=== PATIENT | female | born 1980 | race Caucasian/White ===

== ENCOUNTER 2019-12-22 14:47 | Outpatient (CLI) | payer OTHER, SELFPAY ==
--- NOTE | ~2019-12-22 | US_ITS ---
EXAMINATION: US pelvic complete w TV DATE: 12/22/2019 15:30 INDICATION: Pelvic pain TECHNIQUE: Multiple transabdominal and endovaginal sonographic images of the pelvis were obtained. COMPARISON: None. FINDINGS: The uterus measures 8.2 x 3.4 x 5 cm. The endometrial complex measures 6 mm. The IUD is in the uterus in expected position. The right ovary measures 1.8 x 1.5 x 2 cm. The left ovary measures 3 .9 x 1.9 x 1.9 cm. There is normal vascular flow in the ovaries. There is no free fluid in the pelvis . IMPRESSION: 1. No sonographic correlate for the patient's symptoms. Reviewed, dictated and finalized at location A.
--- NOTE | ~2019-12-22 | MM_ITS ---
EXAMINATION: MM screening abner BI w mark HISTORY: Screening mammogram TECHNIQUE: Craniocaudal and mediolateral oblique 3-D tomosynthesis images were obtained and synthetic 2-D images were generated. CAD analysis was submitted and interpreted. COMPARISON: None, baseline BREAST PARENCHYMAL COMPOSITION: The breasts are heterogeneously dense, which may obscure small masses . FINDINGS: RIGHT BREAST: There is no evidence of suspicious mass, calcification, or architectural distortion to suggest malignancy. LEFT BREAST: There is subtle focal asymmetry in the middle third of the upper breast. No suspicious c alcification is identified. IMPRESSION: 1. Focal asymmetry in the middle third of the upper left breast. 2. Additional mammographic views and possible breast ultrasound are recommended to evaluate for malig renetta and establish a baseline given that this is the first mammographic examination. BI-RADS Category 0: Incomplete: Needs additional imaging evaluation. Reviewed, dictated and finalized at location A. IMPRESSION: 1. Focal asymmetry in the middle third of the upper left breast. 2. Additional mammographic views and possible breast ultrasound are recommended to evaluate for malignancy and establish a baseline given that this is the fir st mammographic examination. BI-RADS Category 0: Incomplete: Needs additional imaging evaluation.
== END 2019-12-22 14:48 | disposition home or self-care (01) ==
PROVIDERS: Visit Provider Obstetrics & Gynecology Gynecology
DX: Z12.31 Encounter for screening mammogram for malignant neoplasm of breast (principal); N92.6 Irregular menstruation, unspecified; R92.8 Other abnormal and inconclusive findings on diagnostic imaging of breast
CPT/HCPCS: 76830; 76856; 77063; 77067

== ENCOUNTER 2020-01-24 12:46 | Outpatient (CLI) | payer OTHER, SELFPAY ==
--- NOTE | ~2020-01-24 | MMUS_ITS ---
EXAMINATION: MM diagnostic mammo unilat LT, US breast LT limited HISTORY: Follow-up left breast asymmetry TECHNIQUE: Additional 3-D tomosynthesis images of the left breast were performed and synthetic 2-D im ages were generated. CAD analysis was submitted and interpreted. High resolution left breast ultrasou nd was performed. COMPARISON: 12/22/2019 BREAST PARENCHYMAL COMPOSITION: The breasts are heterogenously dense, which may obscure small masses FINDINGS: MAMMOGRAPHIC FINDINGS: There are no suspicious masses, calcifications or architectural distortion in the left breast to sugg est malignancy. ULTRASOUND: Left breast ultrasound: There is heterogeneous echotexture. At 1:00 near the nipple there is a 4 mm cyst. No suspicious forrest s to suggest malignancy. IMPRESSION: 1. No evidence for malignancy in the left breast. 2. Routine yearly screening mammogram and regular clinical breast examination are recommended. BI-RADS Category 2: Benign finding(s). Reviewed, dictated and finalized at location A. IMPRESSION: 1. No evidence for malignancy in the left breast. 2. Routine yearly screening mammogram and regular clinical breast examination a re recommended. BI-RADS Category 2: Benign finding(s).
== END 2020-01-24 12:47 | disposition home or self-care (01) ==
LOC: ANHIMG 12:48
PROVIDERS: PCP Internal Medicine; Visit Provider Obstetrics & Gynecology Gynecology
DX: R92.8 Other abnormal and inconclusive findings on diagnostic imaging of breast (principal)
CPT/HCPCS: 76642; 77065

== ENCOUNTER 2021-01-22 17:02 | Outpatient (CLI) | payer OTHER, SELFPAY ==
--- NOTE | ~2021-01-22 | MM_ITS ---
EXAMINATION: MM screening abner BI w mark HISTORY: Screening TECHNIQUE: Craniocaudal and mediolateral oblique 3-D tomosynthesis images were obtained and synthetic 2-D images were generated. CAD analysis was submitted and interpreted. COMPARISON: 12/22/2019 BREAST PARENCHYMAL COMPOSITION: There are scattered areas of fibroglandular density. FINDINGS: There is no evidence of suspicious mass, calcification, or architectural distortion to sugg est malignancy in either breast. There has been no suspicious interval change. IMPRESSION: 1. No mammographic evidence of malignancy. 2. Recommend routine screening mammography in one year. BI-RADS Category 1: Negative Reviewed, dictated and finalized at location A.
== END 2021-01-22 17:03 | disposition home or self-care (01) ==
PROVIDERS: PCP Internal Medicine; Visit Provider Nurse Practitioner
DX: Z12.31 Encounter for screening mammogram for malignant neoplasm of breast (principal)
CPT/HCPCS: 77063; 77067

== ENCOUNTER 2021-07-02 00:52 | Day surgery (SDC) | payer OTHER, SELFPAY ==
[2021-06-24 15:33] VITALS: BMI 23.7
--- NOTE | 2021-06-24 15:44 | PC.NURSE ---
Report to the Outpatient Waiting Room, entrance under the green pavilion located off [facility], at time 0600 on date 07/02/21. OR Time: 0730. - You and your visitor will be asked a series of questions to screen for COVID 19 for your protection. - A mask is required within the hospital. - Only one visitor is allowed at this time. Patient visitors will be guided where to wait when not with patient. Preoperative COVID Testing Requirements: No COVID Test needed if: (proof is required; if not received patient will have Rapid Test prior to entry) - Patient has received COVID Vaccine at least 14 days prior to procedure date or - Patient has positive COVID test result within last 90 days of surgery date. COVID Test needed if above criteria is not met If not COVID vaccinated a COVID test must be conducted within 72 hours of surgery and patient is asked to isolate self from time of testing until procedure. You will go to the [facility] for your COVID testing. The [facility] is located at the corner of [address] [facility]. You will only be called if COVID results are positive and your surgeon may reschedule your elective surgery date. Patients may have clear liquids (water, carbonated beverages, clear teas, apple juice) until 3 hours prior to surgery with a maximum of 20 ounces. - No food from midnight until time of surgery - Infants may have breast milk until 4 hours before surgery, infant formula 6 hours prior to surgery. - Children will be allowed to drink immediately following surgery. If applicable, please bring a bottle or sippy cup to assist with drinking. Juice, water, soda, and popsicles are readily available. For infants on formula, please bring formula the day of surgery. Pacifiers are allowed. Take the following medications with a SIP of water the morning of surgery: NONE Medications to discontinue per physician: VITAMINS/SUPPLEMENTS Date to take last dose: 06/28/[address] KYLE Please no make-up, nail luxembourgish, hairspray, perfume, deodorant, or body powder the day of surgery. No jewelry (including any body piercings) or valuables the day of surgery, leave them at home. Please take a shower or bath the night before, or the morning of, surgery with an antibacterial soap. Wear comfortable, loose fitting clothing. Children are encouraged to wear pajamas. - Jewelry must be removed prior to entering the operating room. Rings and piercings that are not removed may be cut off. - The hospital will not accept responsibility for valuables. - Please leave all valuables, including medications, at home the day of surgery. If you are going home after surgery, a licensed lease purchase driver must drive you home. - NO public transportation without another adult. - We recommend that an adult stay with you for 24 hours following discharge. - We also recommend that you do not drive, make important decision, drink alcoholic beverages, or take any drugs that were not prescribed by your health care provider for at least 24 hours after your discharge time. For Pediatric surgeries, we recommend two adults accompany the child home (only one inside the building at this time). Follow any additional instructions given to you from your surgeon. Telephone instructions given to PERRY TAY and asked if any additional questions and then verbalized understanding. Patient advised to call surgeon office or pre surgery nurse liaison [phone] if any additional questions.
[2021-07-02] VITALS (10 sets, daily range): BP systolic 101–115; BP diastolic 63–71; PULSE 70–98; RESP 12–18; TEMP 36.3–37.6; O2SAT 97–100
[2021-07-02] MEDS: LACTATED RINGERS 1,000 ML 30 ML IV CONT ×2 (06:30→10:04)
--- NOTE | 2021-07-02 06:34 | P.PNAN_ITS ---
Anes - Initial Pre Proc Eval Procedure: Operation Date: 07/02/21 07:30 Proposed Procedures p Abdominoplasty - Dex Sanchez MD Date/Time: 07/02/21 06:34 Surgeon: Dex Sanchez MD Pre Op Diagnosis: skin laxity Patient Data Age: 41 Gender: F Height: 1.68 m Weight: 66.68 kg Allergies Allergy/AdvReac Type Severity Reaction Status Date / Time No Known Allergies Allergy Unverified 06/24/21 15:31 Home Medications Medication Instructions Recorded Confirmed Type ibuprofen 800 mg tablet 800 mg PO TID 01/29/21 06/24/21 History melatonin 20 mg PO HS 01/29/21 06/24/21 History docusate sodium 100 mg capsule 100 mg PO DAILY #14 cap 06/17/21 06/24/21 Rx ondansetron HCl 4 mg tablet 4 mg PO Q8H #21 tablet 06/17/21 06/24/21 Rx carisoprodol 350 mg tablet 350 mg PO TID PRN #21 tablet 06/19/21 06/24/21 Rx diazepam 5 mg tablet 5 mg PO TID PRN #7 tablet 06/19/21 06/24/21 Rx oxycodone-acetaminophen 5 mg-325 1 tablet PO Q6H PRN #30 tablet 06/19/21 06/24/21 Rx mg tablet Patient hx anesthesia problems: none Family hx anesthesia problems: none Results Review: All pre-operative results and documents have been reviewed as part of the pre-operative evaluation. FOR[facility]LY [facility] Surgical History Surgical History (Updated 07/02/21 @ 06:38 by Oswaldo Arreaga MD) History of carpal tunnel surgery Family History Family History Mother Hypertension Bone cancer Lung cancer Diabetes mellitus Social History Social History Years smoked: 6 Smoking status: Former smoker Tobacco type: cigarettes Smoking end date: 05/21/21 Alcohol intake: current Drinks per week: 5 Substance use: never Substance use type: does not use Living arrangements: with family Spiritual care concerns: No Anes - Eval Final PreProcedure Day of Procedure 07/02/21 06:34 Patient weight: normal Heart: regular rate and rhythm Lungs: clear to auscultation Airway: Mallampati scale class 1 Neurological: alert and oriented Last oral intake: >/= 8 hours ASA classification: II Anesthetic plan: proceed Anesthesia type and monitoring: general ETT and standard monitoring Results Review: All pre-operative results and documents have been reviewed as part of the pre-operative evaluation. Informed Consent: The patient's anesthetic plan and its attendant risks and benefits were discussed with the patient/family/POA. Questions were solicited and answers provided to the satisfaction of the patient/family/POA.
[2021-07-02 06:49] LABS: Urine Cotinine NEGATIVE
[2021-07-02] MEDS: TRANEXAMIC ACID 1,000MG/ISO100 1,000 MG/100 ML BAG 200 MG IVPB (06:53)
[2021-07-02] MEDS: SCOPOLAMINE 1.5 MG PATCH TRANSDERM (06:53)
--- NOTE | 2021-07-02 07:11 | WPDHPUPDATE1 ---
History and Physical Update Update Date/Time: 07/02/21 07:11 History and Physical has been reviewed, including an updated exam of the patient. There are NO changes in the patient's condition. Risks, benefits, and alternatives have been discussed and questions answered. Patient agrees to proceed with procedure.
--- NOTE | 2021-07-02 07:21 | P.OP_ITS ---
Procedure Note - Detailed Date of Procedure 07/02/21 Pre-op Diagnosis skin laxity Post-op Diagnosis same Procedure Performed Progressive tension abdominoplasty Surgeon Dex Sanchez MD Anesthesia general Findings Tissue removed 867 grams Description of Procedure They are here today for abdominoplasty. Previously and again today the risks, benefits, alternatives were discussed in extensive detail. I wanted them to be very realistic about the risks involved as well as expectations. We discussed aftercare and what to monitor for. I was very upfront about the risks of wound breakdown leading to loss of skin, open wounds, and need for additional procedu res with permanent abdominal deformity. We discussed DVT/PE risks and management. Made sure answered all of their questions to their satisfaction today and consent was obtained. They were marked in the preoperative holding area with their verification. The patient was taken to the operating room placed supine on the operating table. Anesthesia was provided by anesthesiology. A Draper catheter was started. They were prepped and draped in a standard sterile fashion. A surgical time-out was taken. I placed the patient in a flexed position to verify the upper and lower markings would reach. I then placed supine. A thorough abdominal examination was completed. Stab incisions were made and tumescent solution infiltrated. A liposuction basket cannula was utilized to provide discontinuous undermining. A 10 blade was used to make the upper incision. I continued dissection down to the level of fascia. Elevated just what was necessary for repair of the diastasis. I then again flexed the bed to verify the upper skin flap would reach the lower markings without tension. Once verified I placed her supine once again and a 10 blade used to make the lower incision. I elevated up to level the umbilicus and left the umbilicus intact on a well-vascularized stalk. The intervening tissue was removed. A 2 mm blunt cannula with 0.5% bupivicaine was injected deep to the fascia bilaterally. I plicated the diastasis recti using 0 PDO stratafix barbed suture. This was in 2 separate layers using 2 separate sutures as well. I repaired around the umbilicus leaving plenty of room for well-vascularized stalk of the umbilicus with 2-0 PDS. I also repaired lateral to the rectus using two layers of 0 PDO stratafix. The patient was flexed and starting from superior to inferior began plication using 2-0 Vicryl to obliterate all space in a standard progressive tension fashion. At the umbilicus I marked out the location of the skin and inset this with 3-0 Monocryl and 4-0 Vicryl. I continued the remainder of the plication using 2-0 Vicryl until I reached my lower planned scar line. I trimmed any excess skin of the upper flap making sure this was a tension-free closure. I then approximated using a 3 point suture with 2-0 Vicryl followed by 3-0 stratafix ,running subcuticular 4-0 Monocryl, and tissue glue. Fluffs and an abdominal binder were placed. The patient was transferred to the bed in a flexed position. Awoken and taken to the PACU without difficulty. All instrument and sponge counts were correct at the end of the case. Estimated Blood Loss 30 Drains No Packing No Pathology none sent Complications No immediate complications Condition stable Disposition PACU
[2021-07-02] MEDS: BUPIVACAINE HCL 0.5% PF 30 ML VIAL INFILTRATE (07:28)
[2021-07-02] MEDS: LACTATED RINGERS IRRIG 1,000 ML, LIDOCAINE HCL 1% LOCAL INJ 50 ML, EPINEPHrine HCL INJ ... INFILTRATE (07:28)
[2021-07-02] MEDS: ceFAZolin 2 GM/D5W 50 ML 2 GM/50 ML BAG IVPB (07:28)
[2021-07-02] MEDS: fentaNYL CITRATE INJ (*CRX) 100 MCG/2 ML VIAL 25 MCG IV PUSH ×4 (10:27→11:00)
[2021-07-02] MEDS: LACTATED RINGERS 1,000 ML 125 ML IV CONT (11:35)
[2021-07-02] MEDS: carisoprodoL (*CRX) 350 MG TABLET PO ×2 (12:05→18:44)
[2021-07-02] MEDS: MORPHINE SULFATE (*CRX) 2 MG/ML INJ IV PUSH ×4 (14:33→23:14)
[2021-07-02] MEDS: ENOXAPARIN 40 MG/0.4 ML SYRINGE SUB-Q (16:42)
[2021-07-02] MEDS: oxyCODONE/ACETAMINOPHEN (*CRX) 5-325 MG TABLET PO (19:57)
[2021-07-02] MEDS: DOCUSATE SODIUM 100 MG CAPSULE PO (21:01)
[2021-07-02] MEDS: ONDANSETRON INJ 4 MG/2 ML VIAL IV PUSH (21:36)
[2021-07-02] MEDS: SIMETHICONE 80 MG TAB.CHEW PO (22:06)
[2021-07-02] MEDS: diazePAM (*CRX) 5 MG TABLET PO (22:06)
[2021-07-03] MEDS: carisoprodoL (*CRX) 350 MG TABLET PO ×2 (00:13→05:38)
[2021-07-03] MEDS: SIMETHICONE 80 MG TAB.CHEW PO ×2 (00:13→08:47)
[2021-07-03] MEDS: MORPHINE SULFATE (*CRX) 2 MG/ML INJ IV PUSH ×2 (01:18→04:18)
[2021-07-03] MEDS: oxyCODONE/ACETAMINOPHEN (*CRX) 5-325 MG TABLET PO ×2 (02:01→08:48)
[2021-07-03 04:20] VITALS: BP 92/52; PULSE 66; RESP 16; TEMP 37.1; O2SAT 97
[2021-07-03 08:25] VITALS: BP 91/53; PULSE 85; RESP 18; TEMP 36.9; O2SAT 96
[2021-07-03] MEDS: DOCUSATE SODIUM 100 MG CAPSULE PO (08:47)
--- NOTE | 2021-07-03 08:58 | WPDPN ---
Progress Note: A&P Assessment and Plan (1) Skin laxity: Code(s): L57.4 - Cutis laxa senilis Status: Acute Assessment and Plan: Doing well after progressive tension abdominoplasty. Will discharge home. Follow-up. Today we had a lengthy discussion about the care. What monitor for. This was a lengthy open-ended conversation making sure answered all of her questions are satisfaction. She understands she can call at any time with any questions or concerns. I will see her back. Call with any questions or concerns in the meantime. (2) Current nicotine use: Code(s): Z72.0 - Tobacco use Status: Acute Assessment and Plan: She understands the critical importance of nicotine avoidance. (3) Celiac disease: Code(s): K90.0 - Celiac disease Status: Acute (4) Umbilical hernia: Code(s): K42.9 - Umbilical hernia without obstruction or gangrene Status: Acute Time Spent With Patient Time with patient: 15 - 25 minutes Subjective Date/time seen: 07/03/21 08:58 Overnight she had moderate pain control. Much improved today. No fevers or chills. No nausea vomiting. No shortness of breath. No chest pain. No calf tenderness. She says she is much improved and feels like she is about ready to proceed home. Review of Systems Review of Systems: All systems reviewed & are unremarkable except as noted in HPI and below Exam Narrative: Alert and oriented no obvious distress Respiratory on labored Abdomen soft. No signs of infection. No hematoma. No seroma. Good color and capillary refill. No calf tenderness. Negative Homans. Objective Data Vital Signs Vital Signs: Vital Signs - 24 hr 07/02/21 10:04 07/02/21 10:20 07/02/21 10:35 Temperature 36.4 C L Pulse Rate 98 88 77 Respiratory Rate 16 16 12 Blood Pressure 110/64 115/63 107/67 Pulse Oximetry 100 100 100 07/02/21 10:50 07/02/21 11:05 07/02/21 11:30 Temperature 36.8 C Pulse Rate 77 88 85 Respiratory Rate 12 18 16 Blood Pressure 109/65 110/70 111/71 Pulse Oximetry 97 98 98 07/02/21 16:45 07/02/21 19:00 07/02/21 23:15 Temperature 37.0 C 37.6 C Pulse Rate 91 78 72 Respiratory Rate 18 16 16 Blood Pressure 110/66 103/67 101/66 Pulse Oximetry 98 99 100 07/03/21 04:20 Temperature 37.1 C Pulse Rate 66 Respiratory Rate 16 Blood Pressure 92/52 L Pulse Oximetry 97 Intake/Output Intake/Output: Intake & Output 06/30/21 07/01/21 07/02/21 07/03/21 23:59 23:59 23:59 23:59 Intake Total 2500 Output Total 3150 Balance -650 Meds/Results Medications: Active Medications Generic Name Dose Route Start Last Admin Trade Name Freq PRN Reason Stop Dose Admin Carisoprodol 350 mg 07/02/21 12:00 07/03/21 05:38 Carisoprodol (*Crx) 350 Mg Tablet PO 350 mg Q6HR FESTUS Administration Diazepam 5 mg 07/02/21 10:09 07/02/21 22:06 Diazepam (*Crx) 5 Mg Tablet PO 5 mg TID PRN Administration Anxiety Docusate Sodium 100 mg 07/02/21 21:00 07/03/21 08:47 Docusate Sodium 100 Mg Capsule PO 100 mg Q12HR FESTUS Administration Enoxaparin Sodium 40 mg 07/02/21 16:00 07/02/21 16:42 Enoxaparin 40 Mg/0.4 Ml Syringe SUB-Q 40 mg Q24H FESTUS Administration Lactated Ringer's 1,000 mls @ 125 mls/hr 07/02/21 10:10 07/03/21 04:22 Lr - Lactated Ringers Iv IV CONT Not Given .Q8H FESTUS Morphine Sulfate 2 mg 07/02/21 10:09 07/03/21 04:18 Morphine Sulfate (*Crx) 2 Mg/Ml Inj IV PUSH 2 mg Q2H PRN Administration Pain Ondansetron HCl 4 mg 07/02/21 10:09 07/02/21 21:36 Ondansetron Inj 4 Mg/2 Ml Vial IV PUSH 4 mg Q6H PRN Administration Nausea Oxycodone/Acetaminophen 1 - 2 tablet 07/02/21 10:09 07/03/21 08:48 Oxycodone/Acetaminophen (*Crx) 5-325 Mg Tablet PO 2 tablet Q6H PRN Administration Pain Simethicone 80 mg 07/02/21 21:57 07/03/21 08:47 Simethicone 80 Mg Tab.Chew PO 80 mg Q2HR PRN Administration Gas
--- NOTE | 2021-07-03 09:01 | P.DS_ITS ---
DS: Admitting Diagnosis Discharge Date 07/03/2021 Admitting Diagnosis Skin laxity DS: Discharge Diagnosis Discharge Diagnosis (1) Skin laxity: Code(s): L57.4 - Cutis laxa senilis Status: Acute (2) Current nicotine use: Code(s): Z72.0 - Tobacco use Status: Acute (3) Celiac disease: Code(s): K90.0 - Celiac disease Status: Acute (4) Umbilical hernia: Code(s): K42.9 - Umbilical hernia without obstruction or gangrene Status: Acute DS: Summary Hospital Course Hospital Course: She underwent progressive tension abdominoplasty uneventfully. Postoperatively she has done well. Tolerating diet. Ambulating. Pain controlled. Will discharge home. Time Spent with Patient Time attestation: Total time spent providing and/or coordinating discharge services:20 minutes Exam Narrative: Alert and oriented no obvious distress Respiratory on labored Abdomen soft. No signs of infection. No hematoma. No seroma. Good color and capillary refill. No calf tenderness. Negative Homans. Discharge Plan Discharge Patient Disposition: Home, Self-Care Discharge Instructions: POST OPERATIVE DISCHARGE INSTRUCTIONS DEX SANCHEZ M.D. [facility] [address] [place] [address] * No driving for 24 hours after anesthesia and while you are taking pain medication. * Take all prescribed medication as directed * Diet as tolerated. * No lifting or activity that raises blood pressure for 48 hours. * Regular walking / ambulation. * No showering until directed to. Once you shower do not take pain medication before showering as the combination of medication and heat may cause you to feel dizzy or pass out. * No pools or tubs for 2 weeks. * Call with any questions or concerns. * Slowly stand up straight as tolerated over the week. * No straining or lifting more than 20 pounds for 6 weeks. * Dressing Care: May shower * No nicotine exposure * Remove the Scopolamine patch that was placed behind your ear in 72 hours or less. Wash your hands after touching. If you have any questions or concerns, please call the office . If it is after hours you will be directed to the [facility] psychiatrist [facility]. Shortness of breath, chest pain, or other medical emergency dial 911 / proceed to the Emergency Room. Stand Alone Forms: General Discharge Instructions Follow-up/Referrals: Dex Sanchez MD [Physician] - 1 Week Discharge Medications: Continued ondansetron HCl [Zofran] 4 mg tablet 4 mg PO Q8H Qty: 21 RF: 0 docusate sodium [Colace] 100 mg capsule 100 mg PO DAILY Qty: 14 RF: 0 oxycodone-acetaminophen [Percocet] 5-325 mg tablet 1 tablet PO Q6H PRN (Reason: pain) Qty: 30 RF: 0 carisoprodol [Soma] 350 mg tablet 350 mg PO TID PRN (Reason: muscle pain) Qty: 21 RF: 0 diazepam [Valium] 5 mg tablet 5 mg PO TID PRN (Reason: anxiety) Qty: 7 RF: 0 melatonin 20 mg PO HS RF: 0 ibuprofen 800 mg tablet 800 mg PO TID RF: 0
[2021-07-03] MEDS: ONDANSETRON INJ 4 MG/2 ML VIAL IV PUSH (10:08)
--- NOTE | 2021-07-03 10:10 | WPDANESPN ---
Anes - Prog Note Post-Op Date/Time: 07/03/21 10:10 Cardiovascular status: normal Respiratory status: normal Airway patency: baseline Mental status: baseline Post-Op hydration status: normal Vital Signs: Last Vital Signs Temp 36.9 C 07/03/21 08:25 Pulse 85 07/03/21 08:25 Resp 18 07/03/21 08:25 BP 91/53 L 07/03/21 08:25 Pulse Ox 96 07/03/21 08:25 Pain Score (VAS): 0 I/O: Intake & Output 07/02/21 07/03/21 07/03/21 23:59 07:59 15:59 Intake Total 1940 200 Output Total 2900 Balance -960 200 Post-procedural complaints: none Patient Feedback: Patient satisfied with anesthetic care.
[2021-07-03 11:50] VITALS: BP 104/68
== END 2021-07-03 12:02 | disposition home or self-care (01) ==
LOC: ANHSURGERY 06:54 → ANHOB2 11:06
PROVIDERS: PCP Internal Medicine; Visit Provider Surgery Plastic and Reconstructive Surgery
PROC: (CPT 15830; principal; 2021-07-02 07:30)
DX: Z41.1 Encounter for cosmetic surgery (principal); L57.4 Cutis laxa senilis; Z87.891 Personal history of nicotine dependence
CPT/HCPCS: 15830; 15847; 80307; 99199; A9270; J0171; J0690; J1100; J1170; J1650; J2250; J2270; J2405; J2704; J3010; J7120

== ENCOUNTER 2022-02-06 14:52 | Outpatient (CLI) | payer OTHER, SELFPAY ==
--- NOTE | ~2022-02-06 | MM_ITS ---
EXAMINATION: MM screening abner BI w mark HISTORY: Screening TECHNIQUE: Craniocaudal and mediolateral oblique 3-D tomosynthesis images were obtained and synthetic 2-D images were generated. CAD analysis was submitted and interpreted. COMPARISON: Comparison to multiple prior studies sequentially, with oldest reviewed study dated 12/21. BREAST PARENCHYMAL COMPOSITION: Breast composed of scattered areas of fibroglandular density FINDINGS: There is no evidence of suspicious mass, calcification, or architectural distortion to sugg est malignancy in either breast. There has been no suspicious interval change. IMPRESSION: 1. No mammographic evidence of malignancy. 2. Recommend routine screening mammography in one year. BI-RADS Category 1: Negative Reviewed, dictated and finalized at location A.
== END 2022-02-06 14:53 | disposition home or self-care (01) ==
PROVIDERS: PCP Internal Medicine; Visit Provider Nurse Practitioner
DX: Z12.31 Encounter for screening mammogram for malignant neoplasm of breast (principal)
CPT/HCPCS: 77063; 77067

== ENCOUNTER 2022-08-14 08:00 | Outpatient (RCR) | payer OTHER, SELFPAY ==
--- NOTE | 2022-07-22 10:03 | PTOPEVAL1 ---
Assessment and note entered by Aparna Melo DPT Evaluation Information Assessment Status Evaluation Subjective Information Pt reports neck pain for years. Previous injections and a recent x-ray which showed arthritis and stenosis. Highest pain 6/10 and lowest 3/10. Pain tends to be more left sided, previous radiating pain but not for several years. Reports a lot of stiffness. Gets headaches daily. Pain with prolonged sitting at a desk, looking overhead like to paint a ceiling or reaching overhead into a cabinet. 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 Reported Pain Level Pain Score 3: Self Report Assessment PT Clinical Summary The patient is presenting to skilled therapy with chronic neck pain and stiffness. She presents with cervical range of motion and flexibility impairments as well as decreased upper extremity strength, which are contributing to her pain and difficulty with activities like sitting at a desk or looking up to paint. She will benefit from therapy to address these impairments and safely reduce pain and dysfunction. Plan of Care Interventions Electrical Stimulation,Hot Pack/Cold Pack,Manual Therapy,Neuro Re-education,Patient/Caregiver Education,Therapeutic Activities,Therapeutic Exercise,Self-Care/Home Management PT Services Indicated Yes Treatment Frequency and 1-2 times a week for 3 weeks Duration These treatments will address the objective and functional deficits as defined above. The patient will be advanced safely and appropriately in order for the patient to progress towards his/her prior level of function. Additional exercises will be introduced and as well as a comprehensive home exercise program upon discharge, if needed, ?to ensure carryover of functional gains achieved in the clinic. This treatment plan has been reviewed and agreement upon by the patient.
--- NOTE | 2022-08-14 08:33 | PTOPDC ---
Assessment and note entered by Aparna Melo DPT Evaluation Information Assessment Status Discharge Subjective Information Highest pain in last week 8/10 after holding her friend's baby and felt something pull. Lowest pain /10. Feels good with therapy, thinks she has loosened up a lot and feels relief of pain after performing HEP. Feels a pull sometimes with turning her head to drive. Not limited with ADL's due to pain, has not yet tried higher level activities like push ups. Reported Pain Level Pain Score 3: Self Report Assessment PT Clinical Summary The patient has made good progress in therapy. She reports decreased pain overall and more mobility. She reports no limitations with ADL's and demonstrates improved range of motion and upper extremity strength. Due to her progress and reaching end of current insurance authorization, plan for discharge this visit. She has been educated to continue her HEP and to follow up with MD and/or PT as needed. Plan of Care PT Services Indicated No
== END 2022-08-14 10:11 | disposition home or self-care (01) ==
LOC: ANHGOSHPT 08:00
PROVIDERS: PCP Internal Medicine; Visit Provider Nurse Practitioner
DX: M54.2 Cervicalgia (principal)
CPT/HCPCS: 97110; 97112; 97140; 97161

== ENCOUNTER 2022-12-06 12:49 | Emergency (ER) | payer OTHER, SELFPAY ==
[2022-12-06 13:14] VITALS: BP 125/81; PULSE 78; RESP 16; TEMP 36.6; O2SAT 100
[2022-12-06 13:47] LABS: Appearance Urine Clear (Clear); Bacteria Urine None Seen /hpf; Bilirubin Urine Negative (Negative); Blood Urine Trace (Negative); Color Urine Yellow (Yellow); Glucose Urine UA Negative (Negative); Ketones Urine Negative (Negative); Leukocyte Esterase Ur Negative LEU/UL (Negative); Nitrate Urine Negative (Negative); Non Pathogenic Casts 0-2; Protein Urine Negative (Negative); RBC Urine 0-2 /hpf (0-2); Specific Grav Ur 1.005 (1.001-1.035); Squamous Epithelial Cell Urine None seen /hpf (Few); Urobilinogen Urine 0.2 mg/dL (<2.0); WBC Urine 0-5 /hpf
--- NOTE | 2022-12-06 13:51 | ECG_ITS ---
Measurements Intervals Arnett Rate: 57 P: 50 VT: 150 QRS: 75 QRSD: 86 T: 53 QT: 415 QTc: 407 Interpretive Statements SINUS BRADYCARDIA NO PREVIOUS ECG AVAILABLE FOR COMPARISON Electronically Signed On 12-07-2022 12:12:13 CDT by Marino Holder M.D.
[2022-12-06 14:05] LABS: Add Urine Microscopic? YES
[2022-12-06 14:14] LABS: Basophils Percent Auto 0.7 % (0.2-1.2); Eosinophils Absolute Auto 0.1 K/mm3 (0-0.3); Eosinophils Percent Auto 1.3 % (0-4.4); Hematocrit 38.7 % (37.0-47.0); Hemoglobin 13.1 g/dL (12.0-15.0); Immature Granulocyte Absolute 0.01 K/mm3 (0.00-0.031); Immature Granulocyte Percent A 0.2 % (0-0.5); Lymphocytes Absolute Auto 1.23 K/mm3 (0.9-3.2); Lymphocytes Percent Auto 22.4 % (18.3-44.2); Mean Corpuscular HGB Conc 33.9 g/dl (32-36); Mean Corpuscular Hemoglobin 31.1 pg (26-34); Mean Corpuscular Volume 91.9 fl (80-100); Mean Platelet Volume 9.4 fl (7.4-10.4); Monocytes Absolute Auto 0.4 K/mm3 (0.1-0.6); Monocytes Percent Auto 7.5 % (2.6-8.5); Neutrophils Absolute Auto 3.7 K/mm3 (1.3-6.7); Neutrophils Percent Auto 67.9 % (45.5-73.1); Platelet Count Result 232 k/mm3 (150-375); Red Blood Count 4.21 M/mm3 (4.2-5.4); Red Cell Distribution Width 12.4 % (11.5-14.5); White Blood Count 5.5 K/mm3 (4.5-10.0)
[2022-12-06 14:25] LABS: Alanine Aminotransferase 25 U/L (6-35); Albumin Level 4.3 g/dL (3.5-5.1); Alkaline Phosphatase 48 U/L (38-126); Anion Gap 3 mmol/L (8-16); Aspartate Amino Transferase 31 U/L (14-36); Bilirubin,Total 0.9 mg/dL (0.2-1.3); Blood Urea Nitrogen 14 mg/dL (7-17); Carbon Dioxide 31 mmol/L (22-30); Chloride 104 mmol/L (98-107); Estimated CRCL calculation 96 ml/min; Estimated Glomerular Filt Rate > 60; Glucose 101 mg/dL (65-110); Magnesium 2.2 mg/dL (1.6-2.3); Sodium 138 mmol/L (137-145)
--- NOTE | 2022-12-06 14:27 | ED.GENADULT ---
HPI - General Adult General Chief complaint: Urogenital-Female Stated complaint: low back pain, nauseous, tachycardic Time Seen by Provider: 12/06/22 13:28 Source: patient and RN notes reviewed Mode of arrival: ambulatory Limitations: no limitations History of Present Illness HPI narrative: This is a 42 year old female who presents for evaluation of multiple complaints. She reports frequent urination starting yesterday. She denies associated dysuria, urinary hesitancy, or hematuria. She also reports right lower back pain that has been present constantly since yesterday. This pain is described as dull ache and it is nonradiating. She has not taken any medication for her symptoms. She also report today around 11 am she developed sensation of heart racing. She checked her blood pressure and heart rate at that time, and her blood pressure was 120/80 and heart rate 80. She denies chest pain or shortness of breath. She does note she took new vitamin today and she is not sure if it is related to her symptoms. Related Data Home Medications Medication Instructions Recorded Confirmed melatonin 20 mg PO HS 01/29/21 11/18/22 biotin 1,000 mcg chewable tablet 1,000 mcg PO DAILY 11/18/22 11/18/22 multivitamin 1 tablet PO DAILY 11/18/22 11/18/22 vitamin B complex 1 cap PO DAILY 11/18/22 11/18/22 Allergies Allergy/AdvReac Type Severity Reaction Status Date / Time No Known Allergies Allergy Verified 12/06/22 13:40 Review of Systems Constitutional: Constitutional: Denies weakness Cardiovascular: Cardiovascular: Denies syncope, Denies rapid heart rate, Denies irregular heart rhythm, Denies leg edema, Reports palpitations and Denies dyspnea Respiratory: Respiratory: Denies chest congestion, Denies hemoptysis, Denies excessive phlegm production and Denies dyspnea Gastrointestinal: Gastrointestinal: Denies abdominal pain, Denies hematochezia, Denies diarrhea and Denies vomiting Genitourinary: Genitourinary: Denies hematuria, Reports nocturia and Denies dysuria Musculoskeletal: Musculoskeletal: Reports back pain, Denies joint swelling, Denies loss of height and Denies muscle weakness Neurologic: Denies syncope, Denies focal weakness and Denies weakness [facility] Past Medical History Medical History (Updated 12/06/22 @ 15:06 by Cecilia Stallings MD) Arthritis Postural orthostatic tachycardia syndrome Surgical History Surgical History History of abdominoplasty History of carpal tunnel surgery Family History Family History Mother Hypertension Bone cancer Lung cancer Diabetes mellitus Cancer Thyroid disorder Other Cancer Depression Grandparent Cancer Daughter Depression Social History Social History Years smoked: 6 Smoking status: Former smoker Tobacco type: cigarettes Smoking end date: 05/21/21 Alcohol intake: current Drinks per week: 5 Substance use: never Substance use type: does not use Living arrangements: with family 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 Spiritual care concerns: No Exam Const: General: no acute distress and alert Nutritional Appearance: well nourished Orientation/consciousness: patient oriented x3 Limitations: no limitations HENMT: Head: normal to inspection Eyes: EOM: EOMs intact bilaterally Resp: Effort & Inspection: normal respiratory effort Auscultation: clear to auscultation bilaterally Cardio: Rate: regular rate Rhythm: regular rhythm Heart sounds: no murmurs GI: GI Palp: Yes Soft to palpation, No Tenderness to palpation present (GI), No Guarding due to palpation present (GI) and No Rigid due to palpation Auscultation: normal bowel sounds : General: Yes no CVA tenderness Back/Spine/Pelvis: Back: no CVA tenderness Skin: General skin exam: normal color Rashes: no r
[2022-12-06] MEDS: KETOROLAC 30 MG/ML VIAL (*BKC) IM (14:37)
== END 2022-12-06 15:20 | disposition home or self-care (01) ==
PROVIDERS: Emergency Provider General Practice; PCP Internal Medicine
DX: R00.2 Palpitations (principal); M54.50 Low back pain, unspecified; Z87.891 Personal history of nicotine dependence
CPT/HCPCS: 36415; 80053; 81001; 81025; 83735; 85025; 93005; 96372; 99283; J1885

== ENCOUNTER 2023-03-24 08:30 | Outpatient (RCR) | payer OTHER, SELFPAY ==
--- NOTE | 2023-01-30 08:50 | OTOPEVAL1 ---
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 She underwent a release of the PIN ~2.5 weeks ago. She is having very little to no pain at rest and some discomfort with ROM/light use. She has not returned to work yet, but plans to start with light tasks soon. Assessment OT Clinical Summary Patient referred to outpatient OT following right PIN release. 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 She presents today with stiffness, tightness, pain, and weakness that limits the functional use of her dominant UE. Skilled OT indicated to maximize functional use of her right UE through HEP instruction and progression, therapeutic exercise, modalities, and manual therapy. May utilize splinting as an intervention if the lateral epicondylitis does not respond to conservative measures. Plan of Care Interventions Therapeutic Exercise,Manual Therapy,Therapeutic Activities,Hot Pack/Cold Pack,Check Out for Orthotic/Pr,Paraffin OT Services Indicated Yes Treatment Frequency and 1x/week for 4 weeks Duration These treatments will address the objective and functional deficits as defined above. The patient will be advanced safely and appropriately in order for the patient to progress towards his/her prior level of function. Additional exercises will be introduced and as well as a comprehensive home exercise program upon discharge, if needed, ?to ensure carryover of functional gains achieved in the clinic. This treatment plan has been reviewed and agreement upon by the patient.
--- NOTE | 2023-01-30 08:51 | OPREHPOC ---
Outpatient Therapy Plan of Care This is a Multidisciplinary Plan of Care that may contain components documented by all disciplines (PT, OT, and ST.) OT Problem 1 OT Problem #1 Knowledge Deficit OT Goal 1 Goal 1. Patient to be independent with instructed materials. Target Visit 5 OT Problem 2 OT Problem #2 Pain OT Goal 1 Goal 1. Patient to report reduced pain with right UE use, reporting less than 2/10 with ADLs. Target Visit 5 OT Problem 3 OT Problem #3 Impaired Flexibility OT Goal 1 Goal 1. Patient to increase functional flexibility of the right elbow, measuring 0 degrees of elbow extension. Target Visit 5 OT Problem 4 OT Problem #4 Impaired Strength OT Goal 1 Goal 1. Patient to be able to complete elbow flexion/ extension strengthening with red theraband x10 reps without pain. 2. Patient to be able to complete wrist flexion/ extension strengthening with 2 lb. free weight x10 reps without pain. 3. Patient to be independent with right shirring machine operator strengthening with at least red theraputty x5 minutes without pain. Target Visit 5
--- NOTE | 2023-02-27 13:00 | OTOPPROG ---
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 She underwent a release of the PIN 01/13/23. She reports she is able to use her arm for light tasks around the house and for ADLs, reporting twinges of pain here and there . She is still limiting heavy lifting tasks due to the residual lateral epicondylitis. She has been doing light duty at work. Assessment OT Clinical Summary Patient referred to outpatient OT following right PIN release. She is making progress toward regaining functional ROM and strength of the right UE. She is having less pain, but continues to have 3-4/10 pain in the lateral elbow with arm use . She is slowly increasing her activity levels with this arm and reports she is continuing to limit any heavy tasks at this time until 2 months post surgery per MD orders. Continued skilled OT indicated to maximize functional use of her right UE through HEP instruction and progression, therapeutic exercise, modalities, and manual therapy. May utilize splinting as an intervention if the lateral epicondylitis does not respond to conservative measures. Plan of Care Interventions Therapeutic Exercise,Manual Therapy,Therapeutic Activities,Hot Pack/Cold Pack,Check Out for Orthotic/Pr,Paraffin OT Services Indicated Yes Treatment Frequency and 1x/week for 4 weeks Duration These treatments will address the objective and functional deficits as defined above. The patient will be advanced safely and appropriately in order for the patient to progress towards his/her prior level of function. Additional exercises will be introduced and as well as a comprehensive home exercise program upon discharge, if needed, ?to ensure carryover of functional gains achieved in the clinic. This treatment plan has been reviewed and agreement upon by the patient.
--- NOTE | 2023-02-27 13:00 | OPREHPOC ---
Outpatient Therapy Plan of Care This is a Multidisciplinary Plan of Care that may contain components documented by all disciplines (PT, OT, and ST.) OT Problem 1 OT Problem #1 Knowledge Deficit OT Goal 1 Goal 1. Patient to be independent with instructed materials. ---OT POC UPDATE 02/27/23--- 1. Met, continue as HEP is progressed Target Visit 9 OT Problem 2 OT Problem #2 Pain OT Goal 1 Goal 1. Patient to report reduced pain with right UE use, reporting less than 2/10 with ADLs. ---OT POC UPDATE 02/27/23--- 1. Progressing, continue Target Visit 9 OT Problem 3 OT Problem #3 Impaired Flexibility OT Goal 1 Goal 1. Patient to increase functional flexibility of the right elbow, measuring 0 degrees of elbow extension. ---OT POC UPDATE 02/27/23--- 1. Met Target Visit 5 OT Problem 4 OT Problem #4 Impaired Strength OT Goal 1 Goal 1. Patient to be able to complete elbow flexion/ extension strengthening with red theraband x10 reps without pain. 2. Patient to be able to complete wrist flexion/ extension strengthening with 2 lb. free weight x10 reps without pain. 3. Patient to be independent with right social services designee strengthening with at least red theraputty x5 minutes without pain. ---OT POC UPDATE 02/27/23--- 1. Progressing, continue 2. Progressing, continue 3. Progressing, continue Target Visit 5
--- NOTE | 2023-03-24 08:50 | OTOPDC ---
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 She underwent a release of the PIN 01/13/23. She has been attending OT since 01/30/23 and has made excellent progress. She reports she is able to use her arm for all household and work tasks. Reporting no pain and no difficulties. No longer having tenderness with palpation to the lateral epicondyle or radial tunnel scar. She is having no pain with strengthening exercises. Reported Pain Level Pain Score 0: Self Report Assessment OT Clinical Summary Patient presents today for OT reassessment after 8 weeks of therapy. Treatments have included use of modalities, manual therapy, and exercises to treat lateral elbow pain. She has progressed to strengthening and is no longer experiencing pain with UE use. She is independent with all materials and is ready for discharge. Plan of Care OT Services Indicated No
== END 2023-03-24 10:57 | disposition home or self-care (01) ==
LOC: ANHOT 08:30
PROVIDERS: PCP Internal Medicine
DX: G56.31 Lesion of radial nerve, right upper limb (principal)
CPT/HCPCS: 97018; 97035; 97110; 97140; 97165

== ENCOUNTER 2023-06-02 15:59 | Outpatient (CLI) | payer BC, SELFPAY ==
--- NOTE | ~2023-06-02 | MM_ITS ---
EXAMINATION: MM screening abner BI w mark HISTORY: Screening mammogram TECHNIQUE: Craniocaudal and mediolateral oblique 3-D tomosynthesis images were obtained and synthetic 2-D images were generated. CAD analysis was submitted and interpreted. COMPARISON: 02/2022, 01/22/2021 bilateral screening mammogram examinations BREAST PARENCHYMAL COMPOSITION: There are scattered areas of fibroglandular density. FINDINGS: There is no evidence of suspicious mass, calcification, or architectural distortion to sugg est malignancy in either breast. There has been no suspicious interval change. IMPRESSION: 1. No mammographic evidence of malignancy. 2. Recommend routine screening mammography in one year. BI-RADS Category 1: Negative Reviewed, dictated and finalized at location A. 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
== END 2023-06-02 16:00 | disposition home or self-care (01) ==
PROVIDERS: PCP Internal Medicine; Visit Provider Nurse Practitioner
DX: Z12.31 Encounter for screening mammogram for malignant neoplasm of breast (principal)
CPT/HCPCS: 77063; 77067

== ENCOUNTER 2024-02-05 09:51 | Outpatient (CLI) | payer BC, SELFPAY ==
--- NOTE | ~2024-02-05 | XR_ITS ---
EXAMINATION: XR lumbar spine 2-3V DATE: 02/05/2024 10:16 INDICATION: Low back pain. Left leg pain. TECHNIQUE: 3 views of the lumbar spine were obtained. COMPARISON: None. FINDINGS: Bone alignment is normal. Vertebral body heights are normal. There is mildly decreased disc height at L2-L3. There are endplate osteophytes at multiple levels. There is multilevel mild facet j oint osteoarthritis. There is an intrauterine device in expected position. IMPRESSION: 1. Mild lumbar spondylosis. Reviewed, dictated and finalized at location A. IMPRESSION: 1. Mild lumbar spondylosis.
== END 2024-02-05 09:52 ==
PROVIDERS: Visit Provider Nurse Practitioner
DX: M79.662 Pain in left lower leg (principal); M47.896 Other spondylosis, lumbar region
CPT/HCPCS: 72100

== ENCOUNTER 2024-02-12 13:59 | Outpatient (CLI) | payer BC, SELFPAY ==
--- NOTE | ~2024-02-12 | MR_ITS ---
EXAMINATION: MR lumbar spine wo con DATE: 02/12/2024 14:44 INDICATION: Intervertebral disc disorder with radiculopathy. TECHNIQUE: Magnetic resonance imaging (MRI) of the lumbar spine was performed without intravenous con trast. Sequences included sagittal T2-weighted FSE, sagittal T2-weighted FS FSE, sagittal T1-weighted FSE, and axial T2-weighted FSE. COMPARISON: Lumbar spine radiographs 02/05/2024 FINDINGS: Bone alignment is normal. There are Schmorl's nodes at multiple levels. There is mild chron ic anterior wedging of T12 vertebral body. There is mildly decreased disc height at L2-L3, L3-L4, and L4-L5 and moderately decreased disc height at L5-S1. The distal spinal cord signal intensity is norm al. The conus medullaris is at T12-L1. The following disc levels are specifically discussed: L1-L2: The disc does not extend beyond the endplate margin. There is moderate bilateral facet joint o steoarthritis. There is no neural foraminal stenosis. There is no central canal stenosis. L2-L3: The disc is bulging and has an annular fissure. There is moderate right and severe left facet joint osteoarthritis. There is mild bilateral neural foraminal stenosis. There is mild central canal stenosis. L3-L4: The disc is bulging and has an annular fissure. There is severe right and moderate left facet joint osteoarthritis. There is moderate right and mild left neural foraminal stenosis. There is mild central canal stenosis. L4-L5: The disc is bulging. There is severe bilateral facet joint osteoarthritis. There is mild right and moderate left neural foraminal stenosis. There is mild central canal stenosis. L5-S1: The disc is bulging with superimposed left subarticular zone extrusion with mass effect on lef t S1 nerve root in left lateral recess. There is moderate bilateral facet joint osteoarthritis. There is mild bilateral neural foraminal stenosis. There is mild central canal stenosis. There is severe s tenosis of left lateral recess. IMPRESSION: 1. Moderate lumbar spondylosis. Of note, an extrusion at L5-S1 exerts mass effect on left S1 nerve ro ot. Reviewed, dictated and finalized at location A. IMPRESSION: 1. Moderate lumbar spondylosis. Of note, an extrusion at L5-S1 exerts mass effe ct on left S1 nerve root.
== END 2024-02-12 14:00 | disposition home or self-care (01) ==
PROVIDERS: PCP Nurse Practitioner
DX: M51.16 Intervertebral disc disorders with radiculopathy, lumbar region (principal); M47.896 Other spondylosis, lumbar region; M51.27 Other intervertebral disc displacement, lumbosacral region
CPT/HCPCS: 72148

== ENCOUNTER 2024-02-19 08:43 | Outpatient (CLI) | payer BC, SELFPAY | END 2024-02-19 08:44 | disposition home or self-care (01) | LOC: ANHAUDIO 08:43 | PROVIDERS: PCP Nurse Practitioner; Visit Provider Nurse Practitioner | DX: H91.90 Unspecified hearing loss, unspecified ear (principal) | CPT/HCPCS: 92552; 92556; 92567 ==

== ENCOUNTER 2024-04-29 09:53 | Outpatient (CLI) | payer BC, SELFPAY ==
--- NOTE | ~2024-04-29 | XR_ITS ---
EXAMINATION: XR lumbar spine min 4V DATE: 04/29/2024 10:05 INDICATION: Low back pain radiating down the left. Lifting injury. TECHNIQUE: 4 views of lumbar spine including flexion and extension views and standing views were obta ined. COMPARISON: Lumbar spine radiographs 02/05/24 FINDINGS: There is 4 degrees levocurvature of thoracic lumbar spine. There is mild chronic anterior w edging of T11 and T12 vertebral bodies. There is mildly decreased disc height at L2-L3 and L3-L4. The re is multilevel [id number] facet joint osteoarthritis. The spine is hypomobile with flexion an d extension. IMPRESSION: 1. Mild lumbar spondylosis. Reviewed, dictated and finalized at location A. IMPRESSION: 1. Mild lumbar spondylosis.
== END 2024-04-29 09:54 | disposition home or self-care (01) ==
LOC: GOSHIMG 09:54
PROVIDERS: PCP Nurse Practitioner Family; Visit Provider Neurological Surgery
DX: M54.50 Low back pain, unspecified (principal); M43.06 Spondylolysis, lumbar region
CPT/HCPCS: 72110

== ENCOUNTER 2024-07-12 07:42 | Outpatient (CLI) | payer BC, SELFPAY ==
--- NOTE | ~2024-07-12 | MM_ITS ---
EXAMINATION: MM screening abner BI w mark HISTORY: Screening TECHNIQUE: Craniocaudal and mediolateral oblique 3-D tomosynthesis images were obtained and synthetic 2-D images were generated. CAD analysis was submitted and interpreted. COMPARISON: Comparison to multiple prior studies sequentially, with oldest reviewed study dated 12/21. BREAST PARENCHYMAL COMPOSITION: Dense: The breasts are heterogeneously dense, which may obscure small masses FINDINGS: There is no evidence of suspicious mass, calcification, or architectural distortion to sugg est malignancy in either breast. There has been no suspicious interval change. IMPRESSION: 1. No mammographic evidence of malignancy. 2. Recommend routine screening mammography in one year. BI-RADS Category 1: Negative Reviewed, dictated and finalized at location B. 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
--- OUTSIDE RECORDS SUMMARY | 2024-07-18 17:58 | XMS_ITS | Encounter Summary ---
Author Organization [facility] Address [address] [place] [address] Phone Care Team Providers Care Managed Security Sales Consultant Name Role Phone Axel Urbina MD Primary Care Provider [phone] Axel Urbina MD Unavailable [phone] Rodri Dunlap MD Unavailable [phone] Encounter Details Date Type Department Care Team (Late st Contact Info) Description 01/12/2023 Telephone [facility] Surgery [address] [place] [address] [place] [address] Shahrzad Bolton M.AFrida Social History Tobacco Use Types Packs/Day Years Used Date Smoking Tobacco: Former Cigarettes 0.5 15.8 2 - 05/2021 Smokeless Tobacco: Never Alcohol Use Standard Drinks/Week Comments Yes 0 (1 standard drink = 0.6 oz pur e alcohol) AUDIT-C Answer Date Recorded Q1: How often do you have a drink containing alc ohol? 2-3 times a week 12/12/2022 Q2: How many drinks containi ng alcohol do you have on a typical day when you are drinking? 1 or 2 12/12/2022 Q3: How often do you have si x or more drinks on one occasion? Monthly 12/12/2022 Personal Safety Answer Date Recorded Have you ever been in or are you currently in a harmful physical or emotional relationship or is someone making you feel afraid or unsafe? 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 - 01/12/2023 3:03 PM CDT Date: 01/12/2023 Reason for Call: Surgery Information Patient Provider: [facility] Information: Outcome/Plan: Call to patient to provide surgery information for tomorrow, 01/13/2023: Arrival - 11:00 am Surgery - 1:00 pm Went over the preop instructions, food & drink guidelines and no vietnamese on fingers or toes. Left voicemail and will follow up with a portal message. documented in this encounter Plan of Treatment Not on file documented as of this encounter Visit Diagnoses Not on filedocumented in this encounter Care Teams Managed Security Sales Consultant Relationship Specialty Start Date End Date Axel Urbina MD [address] [facility] [address] [place] [address] PCP - General Internal Medicine 12/03/22 Axel Urbina MD [address] [facility] [address] [place] [address] Internal Medicine 12/03/22 Rodri Dunlap MD [address] [place] [address] Referring Physician Orthopedic Surgery 12/03/22 documented as of this encounter
--- OUTSIDE RECORDS SUMMARY | 2024-07-18 17:58 | XMS_ITS | Encounter Summary ---
Author Organization [facility] Address [address] [place] [address] Care Team Providers Care Meat Washer Name Role Phone Axel Urbina MD Primary Care Provider [phone] Axel Urbina MD Unavailable [phone] Rodri Dunlap MD Unavailable [phone] Reason for Visit * Auth/Cert (Routine) Specialty Diagnoses / Procedures Referred By Satya verdugo Referred To Contact Diagnoses Posterior interosseous nerve pain, right Posterior interosseous nerve pain, right [G56.31] Procedures MS DCMPRN FASCT F/ARM&/WRST FLXR/XTNSR W/DBRDMT RELEASE POSTERIOR INTEROSSEOUS NERVE Referral ID Status Reason Start Date Expiration Date Visits Re quested Visits Authorized [id number] 1 1 Encounter Details Date Type Department Care Team (Late st Contact Info) Description 01/13/2023 2:30 PM CDT Anesthesia Event [facility] [address] [place], [place] [id number] Jannet Crowell MD [address] [place], [place] [id number] Frances Epperson NP [address] [facility] [phone] [place] [address] Anesthesia Record Procedure Summary Procedure Name Responsible Anesthesiologist Anesthesia Start Time Anesthesia Stop Time RELEASE POSTERIOR INTEROSSEOUS NERVE (Right: Arm Lower) Jannet Crowell MD 01/13/23 1430 01/13/23 1645 Events Date Time Event Comment 01/13/2023 1125 In Preop 1317 1430 An Start 1434 An Start Data 1434 In Room 1439 An Induction The patient was reevaluated immediately before moderate or deep sedation use and before anesthesia induction. 1441 An Intubation 1444 Anesthesia Ready 1500 Proc Start 1502 Incision Start 1638 An Extubation 1640 an stop data 1641 Proc Fin 1641 Out of Room 1645 Handoff to RN I completed my handoff to the receiving nurse during which we: 1. Patient identified 2. Responsible provider identified 3. Pertinent medical history reviewed 4. Procedure type and surgical course discussed 5. Intraoperative anesthetic management and any significant issues discussed 6. Expectations and concerns for postop period discussed 7. Questions solicited from receiving nurse 8. Patient disposition at the time of handoff: No value filed. 1645 An Stop Meds Name Total midazolam PF 2 mg lidocaine (cardiac) syringe 2 % 40 mg propofol 180 mg fentaNYL 100 mcg succinylcholine 60 mg rocuronium 10 mg ePHEDrine 25 mg ondansetron PF (ZOFRAN) 2 mg/mL injectio n 4 mg ceFAZolin (ANCEF) 2,000 mg/20 mL in ster ile water (premix) 2,000 mg 2,000 mg dexAMETHasone 4 mg/mL 8 mg diphenhydrAMINE 12.5 mg famotidine 20 mg lidocaine (LTA) solution 4 % 2 mL ketorolac 30 mg Lactated Ringer's (LR) infusion 1,000 mL * Agents Name O2% N2O O2 Air Sevoflurane Inspired Sevoflurane * Blood No blood administrations on file. Lines, Drains, and Airways Type Details Placement Removal Closed/Suction/Open Drain 01/13/23; 1602; 1; Inferior, Proximal, Right; Bulb; 10 Fr.; 1 01/13/23 1602 by Alison Badillo, KATI Pump Device (Retired) 01/13/23; 1603; Dr Frida Stoddard; Pain pump; Lower, Posterior, Proximal, Right; Arm; On-! pain relief system; Yes 01/13/23 1603 by Alison Badillo RN ETT Placement Date: 01/13/23; Placement Time: 1451 (created via procedure documentation); Mask Ventilation: 1; Technique: Direct laryngoscopy; Type: ETT - single; Single Lumen Tube Size: 7 mm; Cuffed: Yes; Laryngoscope: Jonathan; Blade Size: 3; Location: Oral; Grade View: Grade I; Insertion Attempts: 1; Placement Verification: Auscultation, Capnometry; Removal Date: 01/13/23; Removal Time: 1638 01/13/23 1451 by Marlene Jimenez CRNA 01/13/23 1638 by Marlene Jimenez CRNA RETIRED Surgical Site 01/13/23; 1602; Posterior, Proximal, Right; Forearm; 06/07/24 (Retired LDA, Removed/Completed by [place] with LDA Utility); 1213 (Retired LDA, Removed/Completed by [employer] with LDA Utility) 01/13/23 1602 by Alison Badillo RN 06/07/24 1213 by Discharge Provider, Automatic documented in this encounter Social History Tobacco Use Types Packs/Day Years Used Date Smoking Tobacco: Former Cigarettes 0.5 15.8 2 05/2021 Smokeless Tobacco: Never Alcohol Use Standard [...] on file 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 Gender Identity Female 12/06/2022 6:59 PM CDT Sexual Orientation Straight 12/06/2022 6: 59 PM CDT documented as of this encounter OR Notes * Anesthesia Postprocedure Evaluation - Cristofer Horner MD DDS - 01/13/2023 5:42 PM CDT Patient: Yaritza Best Procedure Summary Date: 01/13/23 Room / Location: [facility] OR POD 4 ROOM E / [facility] OR POD 4 Anesthesia Start: 1430 Anesthesia Stop: 1645 Procedure: RELEASE POSTERIOR INTEROSSEOUS NERVE (Right: Arm Lower) Diagnosis: Posterior interosseous nerve pain, right (Posterior interosseous nerve pain, right [G56.31]) Surgeons: Sabiha Stoddard MD Responsible Provider: Jannet Crowell MD Anesthesia Type: general ASA Status: 2 Anesthesia Type: general Last vitals BP 116/69 Pulse 87 Temp 36.1 ??C (97 ??F) (Temporal) Resp 17 SpO2 99% Anesthesia Post Evaluation Patient location during evaluation: PACU Patient participation: complete - patient participated Level of consciousness: fully awake Pain management: adequate Airway patency: adequate Cardiovascular status: acceptable Respiratory status: acceptable Hydration status: acceptable Pt is: normothermic No notable events documented. * Anesthesia Procedure Notes - Marlene Jimenez CRNA - 01/13/2023 2:51 PM CDT Associated Order(s): Airway Airway Patient location: OR Urgency: elective Indications for airway management: anesthesia Difficult airway: no Staff: Supervising provider: Jannet Crowell MD Placed by: PR INTERN: Marlene Jimenez CRNA Emergent airway documentation: Risks and benefits discussed: yes Consent obtained: yes Consent given by: patient Airway prep: Preoxygenated: yes MILS maintained throughout: yes Mask difficulty assessment: 1 - vent by mask Spontaneous ventilation during airway: absent Sedation level during airway: GA Final airway details: Final airway type: endotracheal airway Tube type: ETT ETT size: 7.0 mm Cuffed: yes Technique used for successful ETT placement: direct laryngoscopy Devices/Methods used in placement: intubating stylet Insertion site: oral Blade type: Jonathan Blade size: 3 Cormack-Lehane (direct): grade I - full view of glottis Cuff inflated with: air ETT to lips: 21 cm Placement verified by: auscultation and CO2 detection Airway secured with: silk tape Number of attempts: 1 * Anesthesia Preprocedure Evaluation - Jannet Crowell MD - 01/09/2023 8:08 AM CDT Images from the original note were not included. [facility] for Preoperative Assessment and Planning Preoperative Evaluation Record Evaluation type/location: TPAP from [facility] Planned procedure site: [facility] CAM OR (Pod 4) Date: 01/09/23 NOTE: This note represents a preoperative evaluation initiated via telephone interview. NO PHYSICALEXAM was performed at the time of initial assessment. A physical exam may be added to this note anddocumented below. Anesthesia Evaluation Yaritza Best is a 42 y.o. female Procedure(s): RELEASE POSTERIOR INTEROSSEOUS NERVE Pre-Op Diagnosis Codes: * Posterior interosseous nerve pain, right [G56.31] HISTORY HPI Yaritza Best is a 42 y.o. female with PMHx of POTS, Celiac disease, anxiety who is being evaluated prior to undergoing RELEASE POSTERIOR INTEROSSEOUS NERVE of right arm for persistent Posterior interosseous nerve pain of right arm. Past Medical History Information obtained from: patient and chart. Neurological + Psychiatric history - anxiety Pertinent negatives: seizures; neuromuscular disease; CVA/stroke; TIA; CEA and carotid artery stent Cardiovascular Pertinent negatives: hypertension ; CAD ; DE ; CABG ; valvular heart disease; atrial fibrillation; pacemaker/ICD; DVT/PE; negative for CHF; drug-eluting stent(s) and bare metal stent(s) Comments: +POTS Respiratory Pertinent negatives: COPD; asthma; sleep apnea (KACEY); pulmonary hypertension; no O2 use outside thehospital and non-smoker Hepatic / Heme Pertinent negatives: liver disease Renal / Pertinent negatives: renal disease; dialysis and nephrolithiasis Endocrine / Other + Rheumatological disease (Celiac Disease) Pertinent negatives: diabetes mellitus; thyroid disease; obesity (BMI >30); cancer history; transplanted organ and infectious disease Functional Capacity Functional capacity: 4-6 METs Comments: Pt states they would not be SOB or have CP walking 3-4 city blocks at a moderate pace. Day of Surgery assessments status unknown: LMP 01/05. Review of Systems Pertinent negatives: productive cough; SOB; recent cold/flu; fever; chest pain; palpitations; orthopnea; PND; Sickle Cell disease/trait; previous transfusion; bleeding problems; syncope and dizziness PAT Summary and Plans Cardiac risk classification of planned procedure: low cardiac risk. Preoperative assessment status: complete. Initial preoperative evaluation discussed with: Edi Mix MD Additional comments: Yaritza Best is a 42 y.o. female who is being evaluated prior to undergoing a low cardiac risk surgery. Revised Cardiac Risk Index factors are (none) for a total RCRI of 0 out of 6. Functional capacity is 4-6 METs. NOTE: This note represents a preoperative evaluation initiated via telephone interview. NO PHYSICALEXAM was performed at the time of initial assessment. A physical exam may be added to this note anddocumented below. >Pt reports her daughter tested positive for a gene that makes her susceptible to a problem withanesthesia but unsure what the problem is. She states her daughter has had wisdom teeth extraction under anesthesia without any complications (this gene testing was done after the procedure). She wastold that she should notify any anesthesia providers of this prior to receiving anesthesia. Discussed with CPAP attending. Instructed patient to call CPAP back with specific information regarding what anesthesia problem this is in reference to. Patient reports she has never had any problems with anesthesia and denies any direct relatives who have had serious complications from anesthesia including high fevers, seizures, reactions to medications during surgery. Awaiting call back from patient with specific info. Obstructive sleep apnea (KAECY) screening status is STOP-BANG incomplete but suspected to be 0-2 suggesting low risk for KACEY. Neck circumference pending.. Blood bank needs for day of procedure: No type and screen needed Pending labs/tests include: POC Hcg Urine Patient instructions were provided via telephone and in writing sent via [employer]PS mail. Patient verbalized understanding of DOS instruction. TPAP Complete Preoperative evaluation performed by Candy Bond NP on 01/09/23 at 8:19 AM . Follow up note Patient called back and reports her daughter's doctor got back to her and she instructed her to tell us that her daughter has +MTHFR. Verified again that she has no known family history of anesthesiacomplications including malignant hyperthermia or pseudocholinesterase deficiency in which she verified she does not. Discussed with CPAP attending. TPAP process complete. Follow-up completed by: Candy Bond NP on 01/09/23 at 3:12 PM Discussed with: Edi Mix MD Patient Active Problem List Diagnosis Posterior interosseous nerve pain, right Past Medical History: Diagnosis Date Anxiety Autoimmune disorder (HCC) Celiac disease POTS (postural orthostatic tachycardia syndrome) Past Surgical History: Procedure Laterality Date ABDOMINOPLASTY 2020 CARPAL TUNNEL RELEASE Left 2011 DILATION AND CURETTAGE, DIAGNOSTIC / THERAPEUTIC OB History No obstetric history on file. No Known Allergies Med List Status: Nurse Complete Set By: Paula Cristobal RN at 01/08/2023 3:27 PM Taking? Last Dose Start Date End Date Provider estradiol-norethindrone (ACTIVELLA) 1-0.5 mg per tablet 01/08/2023 12/26/22 -- ProviderLisseth MD ibuprofen 200 mg tab/cap Past Week -- -- ProviderLisseth MD No current facility-administered medications for this encounter. Current Outpatient Medications: estradiol-norethindrone (ACTIVELLA) 1-0.5 mg per tablet ibuprofen 200 mg tab/cap Social History Tobacco Use Smoking Status Former Packs/day: 0.50 Types: Cigarettes Start date: 2005 Quit date: 05/2021 Years since quittin.6 Smokeless Tobacco Never Alcohol Use: Heavy Drinker (12/12/2022) AUDIT-C Frequency of Alcohol Consumption: 2-3 times a week Average Number of Drinks: 1 or 2 Frequency of Binge Drinking: Monthly Substance and Sexual Activity Drug Use Yes Types: Alcohol Comment: 3-4 drinks per week Family History Problem Relation Age of Onset Diabetes Other Celiac disease Other Lupus Other There were no vitals filed for this visit. PT: No results found for requested labs within last 30 days. INR: No results found for requested labs within last 30 days. APTT: No results found for requested labs within last 30 days. Hgb A1C: No results found for requested labs within last 30 days. CBC RBC: No results found for requested labs within last 30 days. RDW: No results found for requested labs within last 30 days. MCHC: No results found for requested labs within last 30 days. MCH: No results found for requested labs within last 30 days. MCV: No results found for requested labs within last 30 days. Hct: No results found for requested labs within last 30 days. Hgb: No results found for requested labs within last 30 days. WBC: No results found for requested labs within last 30 days. MPV: No results found for requested labs within last 30 days. Platelets: No results found for requested labs within last 30 days. RDW CV: No results found for requested labs within last 30 days. RDW Sd: No results found for requested labs within last 30 days. BMP Glucose: No results found for requested labs within last 30 days. Calcium: No results found for requested labs within last 30 days. Sodium: No results found for requested labs within last 30 days. Potassium: No results found for requested labs within last 30 days. CO2: No results found for requested labs within last 30 days. Chloride: No results found for requested labs within last 30 days. BUN: No results found for requested labs within last 30 days. Creatinine: No results found for requested labs within last 30 days. Charlie index score: 100 DOS Physical Exam Medical history, medications, and allergies reviewed. Attestation: This PAT evaluation Airway Exam: Mallampati: II Cervical ROM: FROM Cardiovascular Exam: Rate: regular Rhythm: regular Pulmonary Exam: LCTA, bilat Anesthesia Plan ASA 2 My patient is approved for the Anesthesia Controlled Medication protocol when under care of a PR INTERN Planned anesthesia: General Induction: Induction: intravenous. Postoperative Plan: Postoperative administration opioids intended. No postoperative mechanical ventilation intended. Informed Consent: Discussed plan with PR INTERN. Anesthesia plan and risks discussed with patient. Consent and Attending signature: I and/or my designee have discussed the anesthesia plan, benefits, possible alternatives, parental presence at time of induction (if indicated), and clinically relevant risks that may include dental injury, unintentional awareness, and/or other complications. The patient and/or parent/legal guardian understand, and agree to proceed. All questions answered. documented in this encounter Plan of Treatment Not on file documented as of this encounter Procedures Procedure Name Priority Date/Time Associated Diagnosis Comments MS AN PROCEDURE PLACEHOLDER Routine 01/13/2023 2:51 PM CDT MS AN ELECTIVE ENDOTRACHEAL AIRWAY Routine 01/13/2023 2:51 PM CDT documented in this encounter Results * MS AN ELECTIVE ENDOTRACHEAL AIRWAY, MS AN PROCEDURE PLACEHOLDER (01/13/2023 2:51 PM CDT) Narrative Marlene Jimenez CRNA - 01/13/2023 2:51 PM CDT Marlene Jimenez CRNA ? 01/13/2023 ??2:51 PM Airway Patient location: OR Urgency: elective Indications for airway management: anesthesia Difficult airway: no Staff: Supervising provider: Jannet Crowell MD Placed by: PR INTERN: Marlene Jimenez CRNA Emergent airway documentation: Risks and benefits discussed: yes Consent obtained: yes Consent given by: patient Airway prep: Preoxygenated: yes MILS maintained throughout: yes Mask difficulty assessment: 1 - vent by mask Spontaneous ventilation during airway: absent Sedation level during airway: GA Final airway details: Final airway type: endotracheal airway Tube type: ETT ETT size: 7.0 mm Cuffed: yes Technique used for successful ETT placement: direct laryngoscopy Devices/Methods used in placement: intubating stylet Insertion site: oral Blade type: Jonathan Blade size: 3 Cormack-Lehane (direct): grade I - full view of glottis Cuff inflated with: air ETT to lips: 21 cm Placement verified by: auscultation and CO2 detection Airway secured with: silk tape Number of attempts: 1 us Jannet Crowell MD ANESTHESIA ORDERABLES Final Result documented in this encounter Visit Diagnoses Not on filedocumented in this encounter Administered Medications Inactive Administered Medications - up to 3 most recent administrations Medication Order MAR Action Action Date Dose Rate Site ceFAZolin (ANCEF) 2,000 mg/20 mL in sterile water (premix) 2,000 mg 2,000 mg, intravenous, at 400 mL/hr, Administer over 3 Minutes, Once, On Thu01/13/23 at 1230, For 1 dose, Pre-Op, Administer within 60 minutes of incision., Indications: Prophylaxis, SurgicalIndications:Prophylaxis, Surgical Given 01/13/2023 2:45 PM CDT 2,000 mg dexAMETHasone (DECADRON) 4 mg/mL injection intravenous, Administer over 2 Minutes, As needed, Starting on Thu01/13/23 at 1439, Anesthesia Intra-op Given 01/13/2023 2:39 PM CDT 8 mg diphenhydrAMINE (BENADRYL) 50 mg/mL injection intravenous, Administer over 2 Minutes, As needed, Starting on Thu01/13/23 at 1439, Anesthesia Intra-op Given 01/13/2023 2:39 PM CDT 12.5 mg ePHEDrine injection intravenous, Administer over 5 Minutes, As needed, Starting on Thu01/13/23 at 1453, Anesthesia Intra-op Given 01/13/2023 3:51 PM CDT 5 mg Given 01/13/2023 3:19 PM CDT 10 mg Given 01/13/2023 2:57 PM CDT 5 mg famotidine (PEPCID) injection intravenous, Administer over 2 Minutes, As needed, Starting on Thu01/13/23 at 1430, Anesthesia Intra-op Given 01/13/2023 2:30 PM CDT 20 mg fentaNYL (SUBLIMAZE) preservative free injection intravenous, As needed, Starting on Thu01/13/23 at 1439, Anesthesia Intra-op Given 01/13/2023 4:16 PM CDT 25 mcg Given 01/13/2023 4:00 PM CDT 25 mcg Given 01/13/2023 2:49 PM CDT 50 mcg ketorolac (TORADOL) 30 mg/mL (1 mL) injection intravenous, As needed, Starting on Thu01/13/23 at 1613, Anesthesia Intra-op Given 01/13/2023 4:13 PM CDT 30 mg Lactated Ringer's (LR) infusion 30 mL/hr, intravenous, Continuous, Starting on Thu01/13/23 at 1230, Pre-Op New Bag 01/13/2023 3:41 PM CDT 30 mL/hr Rate/Dose Verify 01/13/2023 2:30 PM CDT 30 mL/h r New Bag 01/13/2023 11:55 AM CDT 30 mL/hr 30 mL/hr lidocaine (cardiac) (XYLOCAINE) preservative free injection intravenous, As needed, Starting on Thu01/13/23 at 1439, Anesthesia Intra-op, Indications: Ventricular ArrhythmiasIndications:Ventricular Arrhythmias Given 01/13/2023 2: 39 PM CDT 40 mg lidocaine (LTA) 4 % laryngotracheal solution nebulization, As needed, Starting on Thu01/13/23 at 1441, Anesthesia Intra-op Given 01/13/2023 2:41 PM CDT 2 mL midazolam (VERSED) 2 mg/2 mL preservative free injection intravenous, Administer over 2 Minutes, As needed, Starting on Thu01/13/23 at 1430, Anesthesia Intra-op Given 01/13/2023 2:30 PM CDT 2 mg ondansetron (ZOFRAN) injection intravenous, Administer over 2 Minutes, As needed, Starting on Thu01/13/23 at 1613, Anesthesia Intra-op Given 01/13/2023 4:13 PM CDT 4 mg propofoL (DIPRIVAN) 10 mg/mL IV intravenous, As needed, Starting on Thu01/13/23 at 1439, Anesthesia Intra-op Given 01/13/2023 4:16 PM CDT 30 mg Given 01/13/2023 2:39 PM CDT 150 mg rocuronium (ZEMURON) injection intravenous, As needed, Starting on Thu01/13/23 at 1439, Anesthesia Intra-op Given 01/13/2023 2:39 PM CDT 10 mg succinylcholine (ANECTINE) injection intravenous, As needed, Starting on Thu01/13/23 at 1439, Anesthesia Intra-op Given 01/13/2023 2:39 PM CDT 60 mg documented in this encounter Care Teams Meat Washer Relationship Specialty Start Date End Date Axel Urbina MD [address] [facility] [address] [place] [address] PCP - General Internal Medicine 12/03/22 Axel Urbina MD [address] [facility] [address] [place] [address] Internal Medicine 12/03/22 Rodri Dunlap MD [address] [place] [address] Referring Physician Orthopedic Surgery 12/03/22 documented as of this encounter
--- OUTSIDE RECORDS SUMMARY | 2024-07-18 17:58 | XMS_ITS | Encounter Summary ---
Author Organization [facility] Address [address] [facility] [address] [place] [address] Phone Care Team Providers Care Patient Financial Services Specialist Name Role Phone Axel Urbina MD Primary Care Provider [phone] Axel Urbina MD Unavailable [phone] Rodri Dunlap MD Unavailable [phone] Reason for Visit * Consultation (Routine) - Closed Specialty Diagnoses / Procedures Referred By Contyasmin t Referred To Contact Plastic Surgery Diagnoses Right elbow pain Rodri Dunlap MD [address] [place] [address] Phone: tel: fax: Sabiha Stoddard MD [address] [place] [address] Phone: tel: fax: Referral ID Status Reason Start Date Expiration Date V isits Requested Visits Authorized [id number] Closed Specialty Services Required 12/03/2022 01/02/2024 99 99 Encounter Details Date Type Department Care Team (Late st Contact Info) Description 01/15/2023 11:00 AM CDT Office Visit [facility] Surgery [address] [facility] 6th [place] [address] [place] [id number] Linnette Todd NP [address] [facility] [phone] [place] [address] Posterior interosseous nerve pain, right (Primary Dx); Right elbow pain Social History Tobacco Use Types Packs/Day Years [...] on file 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 Stoddard. She is 2 days out from surgery. She has maintained splint until today. Her post op pain is controlled. JUDI drain has put out 40cc/ day in the past 2 days. FOCUSED PHYSICAL EXAM CDI surgical incision to proximal dorsal FA, JUDI drain with SS thin drainage, mild edema, no fluid collections, sensate is grossly intact, she has full ROM of fingers/wrist/hand, WWP ASSESSMENT/PLAN Yaritza is stable. Incision is without concern. Qpain ball removed, Dr Stoddard was able to see patient in conjunction with me. She has okayed for her to remove her JUDI drain tomorrow. I removed the suture and taped in place. Instructed her on how to remove and provided supplies. She is okay to shower, cover incision with a clean and dry stockinette. Wear sling as needed for comfort. Continue to gently range shoulder down to fingers to prevent any stiffness. NWB with RUE until healed, only lightgentle activities. Elevate as much as possible. She will follow up as scheduled for re evaluation and start therapy in [address] Stoddard. All questions answered at visit today, patient is agreeable to plan. Linnette Todd NP documented in this encounter Plan of Treatment Not on file documented as of this encounter Visit Diagnoses Diagnosis Posterior interosseous nerve pain, right- Primary Right elbow pain Pain in joint, upper arm documented in this encounter Care Teams Patient Financial Services Specialist Relationship Specialty Start Date End Date Axel Urbina MD [address] [facility] [address] [place] [address] PCP - General Internal Medicine 12/03/22 Axel Urbina MD [address] [facility] [address] [place] [address] Internal Medicine 12/03/22 Rodri Dunlap MD [address] [place] [address] Referring Physician Orthopedic Surgery 12/03/22 documented as of this encounter
--- OUTSIDE RECORDS SUMMARY | 2024-07-18 17:58 | XMS_ITS | Encounter Summary ---
Author Organization [facility] Address [address] [place] [address] Phone Care Team Providers Care It Compliance Analyst Name Role Phone Axel Urbina MD Primary Care Provider [phone] Axel Urbina MD Unavailable [phone] Rodri Dunlap MD Unavailable [phone] Encounter Details Date Type Department Care Team (Late st Contact Info) Description 03/04/2023 Telephone [facility] Surgery [address] 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 - 03/04/2023 10:07 AM CDT Date: 03/04/2023 Reason for Call: Schedule Follow Up Appointment Patient Provider: [facility] Information: Outcome/Plan: Call to patient to schedule her 3 month follow up appoitment (2 months after her 02/23 appt) - zoom set on Thursday, 04/27 at 9:15 am. Patient is updating her insurance as her [place] ends tomorrow and she will have a BC[employer] plan documented in this encounter Plan of Treatment Not on file documented as of this encounter Visit Diagnoses Not on filedocumented in this encounter Care Teams It Compliance Analyst Relationship Specialty Start Date End Date Axel Urbina MD [address] [facility] [address] [place] [address] PCP - General Internal Medicine 12/03/22 Axel Urbina MD [address] [facility] [address] [place] [address] Internal Medicine 12/03/22 Rodri Dunlap MD [address] [place] [address] Referring Physician Orthopedic Surgery 12/03/22 documented as of this encounter
--- OUTSIDE RECORDS SUMMARY | 2024-07-18 17:58 | XMS_ITS | Encounter Summary ---
Author Organization [facility] Address [address] [place] [address] Phone Care Team Providers Care Public Housing Interviewer Name Role Phone Axel Urbina MD Primary Care Provider [phone] Axel Urbina MD Unavailable [phone] Rodri Dunlap MD Unavailable [phone] Reason for Visit * Reason Onset Date Comments Advice Only 01/29/2023 Encounter Details Date Type Department Care Team (Late st Contact Info) Description 01/29/2023 Documentation [facility] Occupational Therapy [address] 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 Discussion included: options for therapy, general timeline for LET rehab. Wrote hand therapy order and gave pt a list of CHTs close to [facility]. Originally planned to have pt see Monika Gen[facility] location[facility] addition to regular therapy closer to home, but realized after pt had left that she is unable augusto seen at [place] d/t her insurance ([place] Medicaid). Called pt and let her know about this issue, and that she should just go ahead and schedule with a local therapist. Pt verbalized understanding of all education and instructions. Dipika Lozada, PT, DPT documented in this encounter Plan of Treatment Not on file documented as of this encounter Visit Diagnoses Not on filedocumented in this encounter Care Teams Public Housing Interviewer Relationship Specialty Start Date End Date Axel Urbina MD [address] [facility] [address] [place], [place] [id number] PCP - General Internal Medicine 12/03/22 Axel Urbina MD [address] [facility] [address] [place], [place] [address] Internal Medicine 12/03/22 Rodri Dunlap MD [address] [place] [address] Referring Physician Orthopedic Surgery 12/03/22 documented as of this encounter
--- OUTSIDE RECORDS SUMMARY | 2024-07-18 17:58 | XMS_ITS | Encounter Summary ---
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] Procedures SD DCMPRN FASCT F/ARM&/WRST FLXR/XTNSR W/DBRDMT RELEASE POSTERIOR INTEROSSEOUS NERVE Referral ID Status Reason Start Date Expiration Date Visits Re quested Visits Authorized [id number] 1 1 Encounter Details Date Type Department Care Team (Latest Contact Info) Description 01/13/2023 10:54 AM CDT - 01/13/2023 6:28 PM CDT Hospital Encounter [facility] [address] [place] [address] Sabiha Stoddard MD [address] [facility] [address] [place] [address] Discharge Disposition: Discharge to home or self care Social History Tobacco Use Types Packs/Day Years [...] on file 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 Gender Identity Female 12/06/2022 6:59 PM CDT Sexual Orientation Straight 12/06/2022 6: 59 PM CDT documented as of this encounter Last Filed Vital Signs Vital Sign Reading Time Taken Comments Blood Pressure 114/67 01/13/2023 6:10 PM CDT Pulse 77 01/13/2023 6:10 PM CDT Temperature 36.1 ??C (97 ??F) 01/13/2023 4:45 PM CDT Respiratory Rate 12 01/13/2023 6:10 PM CDT Oxygen Saturation 98% 01/13/2023 6:10 PM CDT Inhaled Oxygen Concentration - - Weight 68 kg (150 lb) 01/08/2023 3:25 PM CDT Height 167.6 cm (5' 6 ) 01/08/2023 3:25 PM CDT Body Mass Index 24.21 01/08/2023 3:25 PM CDT documented in this encounter Discharge Instructions * Discharge Instructions* Sari Holland MD - 01/13/2023 1:43 PM CDT Please call Thursday - Thursday from 9 am - 4 pm with questions or concerns. For urgent issues, outside of these hours, please call and ask for the plastic surgery resident wetlands conservation laborer if: If you have increased redness along the incision. If you have severe or increased pain not relieved by medication. If you have any side effects to medications; such as, rash, nausea, headache, vomiting. If you have an oral temperature over 100.4 degrees. If you have any yellowish or greenish drainage from the incisions or notice a foul odor. If you have bleeding from the incisions that is difficult to control with light pressure. You feel dizzy or like you may pass out. You have persistent nausea and/or vomiting. You have new or increasing numbness/tingling in your injured extremity and Your fingers turn cold or discolored. Diet: Do not drink alcohol while taking narcotic pain medications. You may return to your previous diet as tolerated. It is important for you to get extra nutrition for healing. Eat extra protein and take a multivitamin daily. Drink 2-3 Ensure or Boost supplement shakes each day. Smoking slows wound healing. It increases your chance for infection and other complications including loss of your flap. This applies to e-cigarettes, tobacco, and other nicotine products. Splint care: Keep the splint clean, dry, and intact. Do NOT remove your splint until you see your doctor at your follow-up appointment. Cover the splint with double plastic bags when washing. Call the office if the splint becomes too tight, too loose, or is rubbing and causing increased discomfort. Activity: No sports or strenuous activity until cleared by your doctor. Do not put weight on the affected arm or use it to lift or carry. Elevate the affected extremity as much as possible. This will reduce swelling and pain and improve your final results. Keep your hand above your elbow and your elbow above your heart. Continue to move unaffected joints to avoid stiffness. Care Instructions: You were discharged home with a Bigg Nuñez (JUDI) Drain in place. Measure and write down the amount of drainage that comes out of your JUDI drain daily. Bring this information to your doctor???s appointment. Place a small amount of antibiotic ointment on your skin every day where the JUDI drain exits.Be careful with the drains when showering or changing. You were discharged home with a pain ball in place. The ball is filled for a set number of days anddoes not require further care. Keep the insertion site covered with Tegaderm. If there is leaking or discomfort associated with the pain ball, please call the office. Medication Instructions: You should expect to have some pain after surgery. It is unrealistic to think that you will have nopain, even if you take all pain medications as prescribed. Our goal is to make the pain tolerable. The pain will ultimately improve with time. Take all non-narcotic pain medication as prescribed prior to taking narcotic pain medications (examples of non-narcotic pain medications include tylenol, ibuprofen, celebrex, flexeril, gabapentin, lyrica). Narcotic pain medications (examples include oxycodone, norco, percocet, hydrocodone, morphine) are only meant for breakthrough pain that is not controlled AFTER you take all non- narcotic pain medications as prescribed. Continue your home medications unless otherwise instructed. Do not drive when taking narcotic pain medications. Narcotic pain medications can cause constipation and nausea. Take a stool softener as instructed and take medications with food. If you have itching due to the narcotic pain medications, you may take an llyg-wko-umyudki antihistamine such as Benadryl. Follow up: Follow up is important to ensure the best possible outcome. Please follow-up with Plastic Surgery at [facility] ([facility]), [address] [place] [id number] Call with any questions/concerns regarding your scheduled appointment Jan 11:00 AM documented in this encounter Medications at Time of Discharge estradiol-norethi ndrone (ACTIVELLA) 1-0.5 mg per tabletIndications :Vasomotor Symptoms associated with Menopause Take 1 tablet by mouth every morning 12/26/2022 ibuprofen (ADVIL,MOTRIN) 600 mg tablet Take 1 tablet (600 mg total) by mouth every 6 (six) hours as needed for pain 30 tablet 01/13/2023 ibuprofen 200 mg tab/cap Take 3 tablet/capsul e (600 mg total) by mouth every 6 (six) hours as needed for pain oxyCODONE (ROXICODONE) 5 mg immediate release tabletIndications :Pain Take 1 tablet (5 mg total) by mouth every 4 (four) hours as needed for pain 8 tablet 01/13/2023 acetaminophen (TYLENOL) 500 mg tablet Take 2 tablets (1,000 mg total) by mouth every 6 (six) hours 240 tablet 01/13/2023 02/12/2023 documented as of this encounter Ordered Prescriptions Prescription Sig Dispense Quantity Refills Last Filled Start Date End Date oxyCODONE (ROXICODONE) 5 mg immediate release tabletIndications: Pain Take 1 tablet (5 mg total) by mouth every 4 (four) hours as needed for pain 8 tablet 01/13/2023 ibuprofen (ADVIL,MOTRIN) 600 mg tablet Take 1 tablet (600 mg total) by mouth every 6 (six) hours as needed for pain 30 tablet 01/13/2023 acetaminophen (TYLENOL) 500 mg tablet Take 2 tablets (1,000 mg total) by mouth every 6 (six) hours 240 tablet 01/13/2023 3 documented in this encounter Discharge Disposition Disposition Code Departure Means Destination Comment s Discharge to home or self care documented in this encounter H&P Notes * Sari Holland MD - 01/13/2023 1:40 PM CDT I have reviewed the H&P, examined the patient, and endorse the findings as written. Plan of Care : Based on the above findings, I consider Yaritza Best to be an acceptable risk for : Procedure(s): RELEASE POSTERIOR INTEROSSEOUS NERVE Gen: well-nourished in NAD HEENT: NCAT Pulm: non-labored breathing, symmetric chest expansion Neuro: AOx3, grossly non-focal Ext: wwp Msk: moving all extremities antigravity Psych: normal mood and affect Cosigned by Sabiha Stoddard MD at 01/13/2023 2:00 PM CDT Source Note - Jannet [place] MD - 01/09/2023 8:08 AM CDT Images from the original note were not included. [facility] Preoperative Evaluation Record Evaluation type/location: TPAP from [facility] Planned procedure site: [facility] CAM OR (Pod 4) Date: 01/09/23 NOTE: [...] Cardiovascular Pertinent negatives: hypertension ; CAD ; [place] ; CABG ; valvular heart disease; atrial [...] Day of Surgery assessments status unknown: LMP 7/. Review of Systems Pertinent negatives: productive cough; [...] patient with specific info. Obstructive sleep apnea (KACEY) screening status is STOP-BANG incomplete but suspected [...] Date ABDOMINOPLASTY 2020 CARPAL TUNNEL RELEASE Left 2010 DILATION AND CURETTAGE, DIAGNOSTIC / THERAPEUTIC OB History No obstetric history on file. No Known Allergies Med List Status: Nurse Complete Set By: Paula Cristobal RN at 01/08/2023 3:27 PM Taking? Last Dose Start Date End Date Provider estradiol-norethindrone (ACTIVELLA) 1-0.5 mg per tablet 01/08/2023 12/26/22 -- Lisseth Diego MD ibuprofen 200 mg tab/cap Past Week -- -- Lisseth Diego MD No current facility-administered medications for this [...] Medication protocol when under care of a SEED SERVICE ADVISOR Planned anesthesia: General Induction: Induction: intravenous. Postoperative Plan: Postoperative administration opioids intended. No postoperative mechanical ventilation intended. Informed Consent: Discussed plan with SEED SERVICE ADVISOR. Anesthesia plan and risks discussed with patient. Consent and Attending signature: I and/or my designee have discussed the anesthesia plan, benefits, possible alternatives, parental presence at time of induction (if indicated), and clinically relevant risks that may include dental injury, unintentional awareness, and/or other complications. The patient and/or parent/legal guardian understand, and agree to proceed. All questions answered. documented in this encounter Miscellaneous Notes * Plan of Care - Sabiha Stoddard MD - 01/13/2023 4:32 PM CDT I decompressed the right posterior interosseous nerve today it was as tight and compressed and entrapped as I have ever seen. I also did a lateral as well as longitudinal tenotomy on the tendon of the ECRB within the muscle belly to try to help with her symptoms of lateral epicondylitis. After release everything looked excellent. I hope this improves her significant pain. She will need to continue once she is healed up from this surgery with tennis elbow type physical therapy as well. * Op Note - Sabiha Stoddard MD - 01/13/2023 3:02 PM CDT SURGEON SABIHA STODDARD DIGITAL SALES DIRECTOR Sari Holland. PREOPERATIVE DIAGNOSIS Compression of right posterior interosseous nerve. POSTOPERATIVE DIAGNOSIS Compression of right posterior interosseous nerve. INDICATION FOR SURGERY Compression of right posterior interosseous nerve. OPERATIVE PROCEDURE Decompression of right posterior interosseous nerve. OPERATIVE NOTE Under general anesthesia the right upper extremity was prepped and draped, 4.5 loupe magnification and microbipolar cautery was used throughout. The patient was given 2 g of Ancef within an hour of surgery. No postoperative orders for antibiotics were needed. Compression stockings were placed and functioning prior to induction of surgery to prevent deep venous thrombosis. An incision was made in the interval between the extensor carpi radialis longus and brachioradialis. Dissection was carried down through the soft tissue. The patient had a branching anatomy of the posterior cutaneous nerve of the forearm and I needed to carefully neurolyse this nerve, protect it and basically do the operation under this fine delicate nerve that was challenging, but went well. I entered the interval between the brachioradialis and extensor carpi radialis longus muscle. I came down to identify the radialsensory nerve, the nerve to the extensor carpi radialis brevis and the posterior interosseous nerve. I divided all of the crossing vessels of veins and arteries that were compressing the posterior interosseous nerve including the tight leash of vessels that wrapped around the posterior interosseousnerve just before it entered the supinator. These were divided with hemoclips and also used microbipolar cautery where appropriate. I did a tenotomy of the tendon of the extensor carpi radialis longus longitudinally along the course of the posterior interosseous nerve where the tendinous leading edge was compressing the nerve. I then did a 2nd tenotomy of the extensor carpi radialis brevis tendon, crossed the lateral aspect of the forearm in keeping with the patient's lateral epicondylitis and pain in that area to decompress the attachment of the extensor carpi radialis brevis from the lateral epicondyle. I then decompressed the posterior interosseous nerve by dividing the tendinous leadingedge of the supinator. This was very, very tight and thickened and adherent to the fascia around the vessels and around the nerve. It was carefully decompressed and I also did a myotomy in the superficial supinator in order to fully decompress the nerve. I could see an actual dent in the posterior interosseous nerve with distally some flattening and even a wong discoloration as compared to the more full and proximal posterior interosseous nerve proximal to this entrapment point. The tourniquet was deflated. Good hemostasis was assured. Marcaine was placed in the incision. A pain pump and a drain was placed as well. The incision was closed in layers with Monocryl and a bulky dressing was applied to keep the wrist in neutral and the elbow flexed. The patient tolerated the surgery well. Instrument count correct. FLUID Per anesthesia record. BLOOD LOSS Minimum. OPERATIVE FINDINGS Per operative note. No complications. No specimen sent. I was present for all of this surgery and immediately available for wound closure. Job ID/Internal Job ID: [id number] * Brief Op Note - Cipriano Randle MD - 01/13/2023 3:02 PM CDT Operative Progress Note Surgical Team: Surgeon(s) and Role: * Sabiha Stoddard MD - Primary * Sari Holland MD - Resident - Assisting * Cipriano Randle MD - Fellow Anesthesiologist: Jannet [place] MD SEED SERVICE ADVISOR: Marlene Jimenez CRNA Commercial Drone Software Developer: Alison Badillo RN; Brea Staley RN Scrub: Hemalatha Ojeda ST FLOAT: Nita Muñoz DATE OF SURGERY : 01/13/2023 Preoperative Diagnosis: Pre-op Diagnosis * Posterior interosseous nerve pain, right [G56.31] Postoperative Diagnosis: Post-op Diagnosis * Posterior interosseous nerve pain, right [G56.31] Procedure(s): Procedure(s) (LRB): RELEASE POSTERIOR INTEROSSEOUS NERVE (Right) Operative Findings: As expected Estimated Blood Loss: 10 mL Intraoperative Fluids: 1200 mls Specimens: No specimen collected in procedure Implants: Nothing was implanted during the procedure Blood/Blood Products Transfused: 0 mls Complications: None Condition on Discharge from the operating room was stable Cipriano Randle MD Date: 01/13/2023 Time: 4:19 PM Cosigned by Sabiha Stoddard MD at 01/13/2023 4:43 PM CDT * Pre-Procedure Instructions - Candy Bond NP - 01/09/2023 8:11 AM CDT [facility] Location: [facility] The night before your surgery: * Do not eat anything after midnight the night before your procedure. and * Do not smoke or use tobacco products after midnight the night before surgery. It is best to stop smoking now to improve your health. The morning of your surgery: * You may have clear liquids on your surgery day. You must stop drinking two hours before you arrive to the surgery facility. Acceptable clear liquids include water, clear sports drinks, black coffee, or clear soda. DO NOT drink any milk, creamer, or alcohol. * Your surgeon's office may have provided additional instructions or restrictions. Please follow those instructions. * You may brush your teeth and rinse your mouth out. * Do not glue your dentures. * Do not wear jewelry, body piercings, makeup, hairpins, false eyelashes or contact lenses to the hospital. * Leave any valuables at home or with your family. * If you are still having menstrual cycles, you should come with a full bladder on the morning of surgery in order to provide a urine sample. * If you have an implantable device with a remote, bring the remote with you on the day of surgery. * If you use home oxygen, bring your portable oxygen tank with you on the day of surgery * If you are going to be admitted after surgery at [facility], COVID testing may be performed on the day of surgery, even if you are up to date on your COVID-19 vaccine. * If having surgery at [facility], you may want to bring a credit card if you want to use our Mobile Pharmacy for your discharge medications. Mobile pharmacy is not available at [facility], the Orthopedic Center, or the [place] [facility]. Outpatient Surgery: * You must have a responsible adult drive you home and stay with you for 24 hours after your surgery * You cannot be alone at home or in a hotel * Please call your surgeon's office if you do not have someone to drive you home and/or stay with you after surgery * Please bring any items you may need to spend the night in the hospital. Sometimes patients need to be cared for in the hospital overnight. Instructions For Your Medications: Pre-Surgery Instructions: Medication Instructions estradiol-norethindrone (ACTIVELLA) 1-0.5 mg per tablet Take morning of surgery unless prescribed otherwise by your surgeon. ibuprofen 200 mg tab/cap Don't take on day of surgery General Instructions For Medications: For medications that you are instructed to take on the morning of surgery, take the medications with a few sips of water. Stop all of these medications 7-14 days prior to your surgery: Vitamin E, Herbal medicines, Diet Pills If you have pain, you may take tylenol (acetaminophen). Do not take more than 6 tablets or 3000 mg (3 g) within a 24 period. Call your surgeon and the CPAP clinic if any of the following happens before surgery: Any changes in your health You have a fever You have any signs of an infection (chest, urinary tract or tooth) You have been to the Emergency Room or were in the hospital You have started taking any new medications You have questions about a bowel prep or special diet before surgery You have symptoms of COVID-19 such as a new or worsening cough, shortness of breath, fever, body aches, loss of taste or smell, diarrhea or vomiting, or sore throat. You have a household contact with COVID-19. You test positive for COVID-19. * Pre-Procedure Instructions - Paula Cristobal RN - 01/08/2023 3:34 PM CDT [facility] ([facility]) PRE-SURGICAL NURSING INSTRUCTIONS Telephone Assessment General Information Discussed with Patient: Surgery location provided to patient. Arrival time and surgical time will be provided to the patient by their surgeon. You should wear clothing that is clean, loose, comfortable and easy to get in and out of on the dayof surgery. You should remove nail coverings, artificial nails and nail turkish prior to the day of surgery. You should leave your valuables and any jewelry at home. No metal or piercings are allowed in the operating room. You should bring your insurance card, a photo ID (example: Tar Heater's License) and a method of payment for any insurance copay, deductible or copay for discharge medications. You should bring a complete, up-to-date, list of all your medications on the day of surgery, including any over the counter medications or supplements you may take. Please note on your medication list, the last date & time you took each medication. The healthcare team, on the day of surgery, will ask for this information. You should bring your Advanced Directive and/or Living Will with you on the day of surgery if you have not verified a copy is already in your Epic Chart. If you are having surgery at [facility], please arrive on the day of surgery with the name and phone number of your local 24 hour pharmacy. Due to evening discharges, your routine pharmacy may be closed. In order to obtain your prescriptions that evening, your surgeon may need to send prescriptions to this pharmacy or have you take prescriptions to this pharmacy when you are discharged. Without this information, you may not be able to obtain your prescriptions that evening. A Guide for Patients Having Surgery: Your Pathway to Excellent Care OUR GOAL IS TO PROVIDE YOU WITH EXCELLENT CARE Use this guide to learn about what you can do before, during and after surgery to help your recovery. You are the most important person on your health care team. By becoming informed and involved, you can contribute to the success of your surgery. If your surgeon's directions are different than those in this guide, talk with your nurse or surgeon to confirm the information. It is important that you understand how to take care of yourself at home after surgery. Be sure to bring this guide with you on the day of surgery and take it home with you after surgery. Write down questions for your nurse or surgeon on the last page of this booklet. Important pages to be reviewed BEFORE surgery: Page 1: QR codes for Surgery Center maps Page 3: Types of Anesthesia Page 5: Tips for the day & night before surgery Page 6: When to stop eating BEFORE surgery and examples of clear liquids Page 7-10: Preventing Infection: Chlorhexidine Gluconate (CHG) Bathing Instructions You may access A Guide for Patients Having Surgery: Your Pathway to Excellent Care by the followinglink: [email or web address] How To Prepare Your Skin For Surgery Below is the Pre-Surgical Bathing Protocol you should follow for your surgery. If your surgeon provides you different bathing instructions, please follow your surgeon's orders. 2 Day CHG Bathing Protocol (no nasal ointment) PREVENTING INFECTION (DECOLONIZATION): Decolonization is the use of a topical antiseptic soap and sometimes a nasal ointment to remove bacteria (germs) from the skin's surface. Antiseptic soap: Chlorhexidine gluconate or CHG (brand name: Hibiclens??) Before surgery, your entire body must be thoroughly cleaned. CHG helps to reduce the bacteria on your skin. You may be given one or more bottles of CHG or you may be asked to obtain from your preferred pharmacy. Be sure to ask your pharmacist if you need help finding this product. SHOWERING WITH ANTISEPTIC SOAP (CHG) What You Need For Each Shower 60 mL (?? cup) of CHG 2 clean washcloths CHG Bathing Instructions First, shampoo and rinse your hair with your own shampoo (no conditioners). Do this so the antiseptic soap isn't washed off by your shampoo. Wash face with warm water. Turn off shower and stand away from the water. Use 2 clean washcloths to apply the antiseptic soap to all areas as described below: Pour 30 mL (1/8 cup) of CHG on washcloth #1: Using washcloth- start at jawline and firmly massage the soap into the skin in a circular motion to clean neck, shoulders, chest, back, both armpits, arms, hands and abdomen. Finish with legs and feet. Pour 30 mL (1/8 cup) of CHG on washcloth #2: Using washcloth- firmly massage the soap into the skinin a circular motion to clean groin area, perineum and buttocks. (Do not use CHG on genital area.) [place]: The CHG antiseptic soap will not bubble or lather very much. If you get soap in your eyes, ears or mouth, rinse well with cool water. When finished, leave the soap on your skin for 2 minutes before rinsing. Dry off with a clean fresh towel. Wear clean clothes or pajamas to sleep in. After showering DO NOT put on deodorant, hair products or conditioners, lotions or creams, powders,Vaseline or any non-essential products. If you cannot reach the surgical site, such as the back, please have someone help you. Shaving: You may shave your face, legs and underarms during your evening shower before you apply the CHG antiseptic soap. Be careful not to cut or jacinda your skin. Avoid shaving on the day of surgery. 2-Day CHG Bathing Protocol The Evening Before Surgery: Take a shower with Antiseptic soap (CHG). Follow the steps for ???Showering with Antiseptic Soap (CHG)?? above. Change all linens on your bed so you are sleeping in clean fresh sheets and pillowcases. Remove nail coverings, artificial nails and nail turkish. The Morning of Surgery: Take a shower with Antiseptic soap (CHG). Follow the steps for ???Showering with Antiseptic Soap (CHG)?? above. Put clean clothes on after you shower. Travel/Exposure Screening: Travel Screening Have you traveled outside the [place] in the last 6 months?: No Exposure Screening Have you been exposed to anyone who is sick in the last 30 days?: No Have you been exposed to or tested positive for COVID-19 within the last 10 days?: No Infectious Disease Screening Are you having any of the following:: None As of 04/29/2022 any COVID TESTING required for surgery will be set up by your surgeon's office. Please reach out to your surgeon's office if you develop any COVID symptoms, test positive for COVID or are exposed to a COVID positive person. If you have questions, please call the CPAP Staff at [phone], Thursday-Thursday 8am-4:30pm. All patients should read the below section: COVID 19 Updates & Visitor Policy: Please access [email or web address] for the most updated information. Information on [facility]: Please view [email or web address] (Patient & Visitor Information) for additional details regarding Advanced Directive forms, AWARE, directions, parking information, lodging, Internet access, dining and more. Information on [facility] or [facility] ([facility]): Please view [email or web address] (Patient and Visitor Information) for parking/directions and more. For MyChart information, to activate account or password recovery, please go to [email or web address] or call [phone] (toll-free: [phone]). Information for Suicide Prevention: National Suicide Prevention Lifeline (7-340- 632-CIZA (7767)). Surgery Times: For patients having surgery @ [facility], [facility] or [facility] ([facility]), if your surgeon's office has not notified you of your surgery time by NOON THE BUSINESS DAY BEFORE your surgery, please call [phone] and ask for your surgeon's office Dr Stoddard. * Perioperative Nursing Note - Paula Cristobal RN - 01/08/2023 3:32 PM CDT Center for Preoperative Assessment and Planning Perioperative Nursing Note Telephone Preoperative Evaluation ([facility]) - TELEPHONE ONLY, NO PHYSICAL EXAM Date: 01/08/23 Vitals: 01/08/23 1525 Weight: 68 kg (150 lb) Height: 167.6 cm (5' 6 ) CHEST CIRCUMFERENCE: NA Social History Tobacco Use Smoking Status Former Packs/day: 0.50 Types: Cigarettes Start date: 2005 Quit date: 05/2021 Years since quittin.6 Smokeless Tobacco Never Substance and Sexual Activity Drug Use Yes Types: Alcohol Comment: 3-4 drinks per week Outpatient Medications Marked as Taking for the 01/13/23 encounter (Hospital Encounter) Medication Sig Dispense Refill estradiol-norethindrone (ACTIVELLA) 1-0.5 mg per tablet Take 1 tablet by mouth every morning ibuprofen 200 mg tab/cap Take 3 tablet/capsule (600 mg total) by mouth every 6 (six) hours as needed for pain Implants No active implants to display in this view. SKIN Piercings Remaining: Yes Wound (LDAs) Type of Wound (LDA): (denies) SCREENINGS Charlie index score: 100 PATIENT CARE PLANNING Advance Directives (For Healthcare) Have you reviewed your Advance Directive and is it valid for this stay?: Not applicable Advance Directive: Patient does not have advance directive Communication/Access Liaison Needs Communication Needs: Glasses Assistive Devices/DME: Eyeglasses Discharge Planning Type of Residence: Private residence Living Arrangements: Spouse/significant other Support Systems: Spouse/significant other Assistance Needed: her will be caring for her after procedure Patient expects to be discharged to:: Private residence 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 documented in this encounter Plan of Treatment Not on file documented as of this encounter Procedures Procedure Name Priority Date/Time Associated Diagnosis Comments RELEASE POSTERIOR INTEROSSEOUS NERVE 01/13/2023 2:34 PM CDT Posterior interosseous nerve pain, right Special Needs supine POCT HCG, URINE Routine 01/13/2023 11:51 AM CDT documented in this encounter Results * POCT hCG, urine (01/13/2023 11:51 AM CDT) HCG, ur, POC Negative Lot Number [id number] QC Backgroud Clear Acceptable QC Control Line Acceptable Urine 01/13/2023 11:5 1 AM CDT Candy Bond NP POINT OF CARE TEST ORDERABLE S Final Result documented in this encounter Visit Diagnoses Diagnosis Posterior interosseous nerve pain, right- Primary documented in this encounter Admitting Diagnoses Diagnosis Posterior interosseous nerve pain, right documented in this encounter Administered Medications Inactive Administered Medications - up to 3 most recent administrations Medication Order MAR Action Action Date Dose Rate Site acetaminophen (TYLENOL) tablet 1,000 mg 1,000 mg, oral, Once, On Thu01/13/23 at 1330, For 1 dose, Pre-Op Given 01/13/2023 1:12 PM CDT 1,000 mg HYDROmorphone (DILAUDID) injection 0.2 mg 0.2 mg, intravenous, Administer over 2 Minutes, Every 10 min PRN, 1st line for pain, Starting on Thu01/13/23 at 1643, Phase I, Switch to 2nd line analgesic order if pain is uncontrolled or increasing after 2 doses. Notify Anesthesiologist if total PACU dose reaches 2 mg and pain score 5/10 or more., Indications: PainIndications:Pain Given 01/13/2023 5:37 PM CDT 0.2 mg Given 01/13/2023 5:26 PM CDT 0.2 mg Lactated Ringer's (LR) infusion 30 mL/hr, intravenous, Continuous, Starting on Thu01/13/23 at 1230, Pre-Op New Bag 01/13/2023 3:41 PM CDT 30 mL/hr Rate/Dose Verify 01/13/2023 2:30 PM CDT 30 mL/h r New Bag 01/13/2023 11:55 AM CDT 30 mL/hr 30 mL/hr prochlorperazine (COMPAZINE) injection 5 mg 5 mg, intravenous, Administer over 2 Minutes, Once as needed, nausea, vomiting, Starting on Thu01/13/23 at 1643, For 1 dose, Phase I, If nausea/vomiting not relieved by ondansetron within 30 minutes or if ondansetron has been given within the last 6 hours. Given 01/13/2023 4:50 PM CDT 5 mg documented in this encounter Historical Medications * This list may reflect changes made after this encounter. ibuprofen 200 mg tab/cap Take 3 tablet/capsule (600 mg total) by mouth every 6 (six) hours as needed for pain estradiol-norethi ndrone (ACTIVELLA) 1-0.5 mg per tabletIndications :Vasomotor Symptoms associated with Menopause Take 1 tablet by mouth every morning 12/26/2022 added in this encounter Active and Recently Administered Medications Times are shown in CDT. Scheduled Medication Order 01/11/2023 01/12/2023 01/13/2023 acetaminophen (TYLENOL) tablet 1,000 mg (COMPLETED) 1,000 mg, oral, Once, On Thu01/13/23 at 1330, For 1 dose, Pre-Op 1312 (Given - Provid er: Bety Portillo RN) ceFAZolin (ANCEF) 2,000 mg/20 mL in sterile water (premix) 2,000 mg (COMPLETED) 2,000 mg, intravenous, at 400 mL/hr, Administer over 3 Minutes, Once, On Thu01/13/23 at 1230, For 1 dose, Pre-Op, Administer within 60 minutes of incision., Indications: Prophylaxis, Surgical 1445 (Given - Provid er: Marlene Jimenez CRNA) Continuous Medication Order 01/11/2023 01/12/2023 01/13/2023 Lactated Ringer's (LR) infusion 30 mL/hr, intravenous, Continuous, Starting on Thu01/13/23 at 1230, Pre-Op 1155 (New Bag - Prov ider: Bety Portillo RN)1430 (Rate/Dose Verify - Provider: Marlene Jimenez CRNA)1541 (New Bag - Provider: Marlene Jimenez CRNA)2228 (Due: Stopped) PRN Medication Order 01/11/2023 01/12/2023 01/13/2023 BUPivacaine (MARCAINE) 0.5 % (5 mg/mL) preservative free injection (CANCELED) As needed, Starting on Thu01/13/23 at 1605, Intra-Op 1605 (Given - Provid er: Sabiha Stoddard MD) fentaNYL (SUBLIMAZE) preservative free injection 50 mcg 50 mcg, intravenous, Once as needed, uncontrolled pain on PACU admission, Starting on Thu01/13/23 at 1643, For 1 dose, Phase I, Then proceed to PACU 1st line analgesic., Indications: Pain HYDROmorphone (DILAUDID) injection 0.2 mg 0.2 mg, intravenous, Administer over 2 Minutes, Every 10 min PRN, 1st line for pain, Starting on Thu01/13/23 at 1643, Phase I, Switch to 2nd line analgesic order if pain is uncontrolled or increasing after 2 doses. Notify Anesthesiologist if total PACU dose reaches 2 mg and pain score 5/10 or more., Indications: Pain 1726 (Given - Provid er: Amira Ulrich RN)1737 (Given - Provider: Amira Ulrich RN) HYDROmorphone (DILAUDID) injection 0.4 mg 0.4 mg, intravenous, Administer over 2 Minutes, Every 10 min PRN, 2nd line for pain, Starting on Thu01/13/23 at 1643, Phase I, May administer 10 mintes after 2nd dose of 1st line analgesic agent for uncontrolled or increasing pain. Revert to 1st line dose if POSS of 3. Notify Anesthesiologist if total PACU dose reaches 2 mg and pain score 5/10 or more., Indications: Pain naloxone (NARCAN) 0.4 mg/mL injection 0.04-0.4 mg 0.04-0.4 mg, intravenous, Once as needed, other, excessive sedation/respiratory depression, Starting on Thu01/13/23 at 1643, For 1 dose, Phase I, Dilute 0.4 mg with 9 mL NS (final concentration 0.04 mg/mL). For respiratory depression (respiratory rate less than 6), administer 0.4 mg IVP over 30 seconds. For excessive sedation administer 0.04 mg (1 mL) every 1 minute until desired level of alertness. For IV, administer over 30 seconds., Indications: Opioid Toxicity ondansetron (ZOFRAN) injection 4 mg 4 mg, intravenous, Administer over 2 Minutes, Once as needed, nausea, vomiting, Starting on Thu01/13/23 at 1643, For 1 dose, Phase I, Proceed to prochlorperazine if ondansetron has been given within the last 6 hours. prochlorperazine (COMPAZINE) injection 5 mg (COMPLETED) 5 mg, intravenous, Administer over 2 Minutes, Once as needed, nausea, vomiting, Starting on Thu01/13/23 at 1643, For 1 dose, Phase I, If nausea/vomiting not relieved by ondansetron within 30 minutes or if ondansetron has been given within the last 6 hours. 1650 (Given - Provid er: Amira Ulrich RN) sodium chloride 0.9% irrigation (CANCELED) As needed, Starting on Thu01/13/23 at 1510, Intra-Op 1510 (Given - Provid er: Sabiha Stoddard MD) documented in this encounter Orders Medications Ordered That Aj ht Not Have Been Administered Count Last Ordered Date First Ordered Date BUPivacaine (MARCAINE) 0.5 % (5 mg/mL) preservative free injection 1 01/13/2023 Carrier Fluids for Secondary Infusion - 0.9% Sodium Chloride 1 01/13/2023 ceFAZolin (ANCEF) 2,000 mg/2 0 mL in sterile water (premix) 2,000 mg 1 01/13/2023 fentaNYL (SUBLIMAZE) preserv ative free injection 50 mcg 1 01/13/2023 HYDROmorphone (DILAUDID) injection 0.4 mg 1 01/13/2023 naloxone (NARCAN) 0.4 mg/mL injection 0.04-0.4 mg 1 01/13/2023 ondansetron (ZOFRAN) injection 4 mg 1 01/13 sodium chloride 0.9% flush 0.5-20 mL 1 01/03 sodium chloride 0.9% irrigation 1 3 Discharge Count Last Ordered Date First Orde red Date DISCHARGE PATIENT 1 01/13/2023 documented in this encounter Care Teams Assistant Professor Of Education Relationship Specialty Start Date End Date Axel Urbina MD [address] [facility] [address] [place] [address] PCP - General Internal Medicine 12/03/22 Axel Urbina MD [address] [facility] [address] [place] [address] Internal Medicine 12/03/22 Rodri Dunlap MD [address] [place] [address] Referring Physician Orthopedic Surgery 12/03/22 documented as of this encounter
--- OUTSIDE RECORDS SUMMARY | 2024-07-18 17:58 | XMS_ITS | Referral Summary ---
Author Organization [facility] Address [facility] [place] [address] Care Team Providers Care Metal Room Dental Technician Name Role Phone Axel Urbina MD Primary Care Provider [phone] Axel Urbina MD Unavailable Rodri Dunlap MD Unavailable [phone] Allergies No known active allergies Medications estradiol-noret hindrone (ACTIVELLA) 1-0.5 mg per tabletIndicatio ns:Vasomotor Symptoms associated with Menopause Take 1 tablet by mouth every morning 3 Active ibuprofen 200 mg tab/cap Take 3 tablet/capsule (600 mg total) by mouth every 6 (six) hours as needed for pain Active ibuprofen (ADVIL,MOTRIN) 600 mg tablet Take 1 tablet (600 mg total) by mouth every 6 (six) hours as needed for pain 30 tablet 3 Active oxyCODONE (ROXICODONE) 5 mg immediate release tabletIndicatio ns:Pain Take 1 tablet (5 mg total) by mouth every 4 (four) hours as needed for pain 8 tablet 3 Active Additional Information Patient not taking.Reported on 01/29/2023 Active Problems Problem Noted Date Diagnosed Date Posterior interosseous nerve pain, right 023 Social History Tobacco Use Types Packs/Day Years [...] on file 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 [address] [place] [address] PCP - General Internal Medicine 12/03/22 Axel Urbina MD [address] [facility] [address] [place] [address] Internal Medicine 12/03/22 Rodri Dunlap MD [address] [place] [address] Referring Physician Orthopedic Surgery 12/03/22
--- OUTSIDE RECORDS SUMMARY | 2024-07-18 17:58 | XMS_ITS | Encounter Summary ---
Author Organization [facility] Address [address] [place] [address] Phone Care Team Providers Care General Ledger Bookkeeper Name Role Phone Axel Urbina MD Primary Care Provider [phone] Axel Urbina MD Unavailable [phone] Rodri Dunlap MD Unavailable [phone] Encounter Details Date Type Department Care Team (Late st Contact Info) Description 02/25/2023 Telephone [facility] [address] [facility] 6th [place] [address] [place] [address] Mayra Alvarado Social History Tobacco Use Types Packs/Day Years [...] on file 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 Richi garcia (needs to be scheduled) documented in this encounter Plan of Treatment Not on file documented as of this encounter Visit Diagnoses Not on filedocumented in this encounter Care Teams General Ledger Bookkeeper Relationship Specialty Start Date End Date Axel Urbina MD [address] [facility] [address] [place] [address] PCP - General Internal Medicine 12/03/22 Axel Urbina MD [address] [facility] [address] [place] [address] Internal Medicine 12/03/22 Rodri Dunlap MD [address] [place] [address] Referring Physician Orthopedic Surgery 12/03/22 documented as of this encounter
--- OUTSIDE RECORDS SUMMARY | 2024-07-18 17:58 | XMS_ITS | Encounter Summary ---
Author Organization [facility] Address [address] [place] [address] Phone Care Team Providers Care Head Correction Officer Name Role Phone Axel Urbina MD Primary Care Provider [phone] Axel Urbina MD Unavailable [phone] Rodri Dunlap MD Unavailable [phone] Reason for Visit * Consultation (Routine) - Closed Specialty Diagnoses / Procedures Referred By Contyasmin t Referred To Contact Plastic Surgery Diagnoses Right elbow pain Rodri Dunlap MD [address] [place] [address] Phone: tel: fax: Sabiha Stoddard MD [address] [place] [address] Phone: tel: fax: Referral ID Status Reason Start Date Expiration Date V isits Requested Visits Authorized [id number] Closed Specialty Services Required 12/03/2022 01/02/2024 99 99 Encounter Details Date Type Department Care Team (Late st Contact Info) Description 01/29/2023 11:45 AM CDT Office Visit [facility] [address] [facility] 6th [place] [address] [place] [id number] Sabiha Stoddard MD [address] [place] [address] Posterior interosseous nerve pain, right (Primary Dx) Social History Tobacco Use Types Packs/Day Years [...] on file 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 PLASTIC POSTOPERATIVE VISIT - PATIENT NOTE Patient: Yaritza Best : 1980 Date of Service: 01/28/2023 PCP: Axel Urbina MD DATE OF VISIT: 01/28/2023 Dear Rodri Dunlap MD, I was pleased to see Yaritza Best today. Yaritza Best is a 42 y.o. female who attends for a postoperative visit following RIGHT PIN decompression, and longitudinal and lateral tenotomy of the ECRB on 01/13/2023. She has been doing well. Today she rates her pain at 3/10, with 50% effect on QoL, from 3/10 at baseline and 8-9/10 w activity. Her incisions are c/d/i without surrounding erythema or drainage. Today we discussed starting therapy (orders written by Virginiajuan chavez for closer to home). We will plan to have her see us in a couple of months, or as needed if she does not improve. ATTENDING ATTESTATION: Please see resident/fellow's note. I discussed the case with the resident/fellow, performed the physical examination, reviewed all tests and imaging studies, and agree with the findings and treatmentplan as documented in resident/fellow's note. Briefly, this is a patient who is done very well after the pin decompression. She is not complaining of pain and is ready to start physical therapy including addressing the lateral epicondylitis. I would like her to work with Ms. Genao for her postoperative therapy if possible. Sabiha Stoddard M.D. Grey Inspector, [facility] Dr. Sabiha Stoddard dictates using Fluency Direct. Van Loader of nonsensical variances may occur. documented in this encounter Plan of Treatment Not on file documented as of this encounter Visit Diagnoses Diagnosis Posterior interosseous nerve pain, right- Primary documented in this encounter Care Teams Head Correction Officer Relationship Specialty Start Date End Date Axel Urbina MD [address] [address] PCP - General Internal Medicine 12/03/22 Axel Urbina MD [address] [facility] [address] [place] [address] Internal Medicine 12/03/22 Rodri Dunlap MD [address] [place] [address] Referring Physician Orthopedic Surgery 12/03/22 documented as of this encounter
--- OUTSIDE RECORDS SUMMARY | 2024-07-18 17:58 | XMS_ITS | Clinical Summary ---
Author Organization [facility] Address [facility] [place] [address] Care Team Providers Care Therapy Tech Name Role Phone Axel Urbina MD Primary Care Provider Axel Urbina MD Unavailable Rodri Dunlap MD Unavailable [phone] Allergies No known active allergies Medications estradiol-noret [...] Date Posterior interosseous nerve pain, right 023 Surgical History Surgery Date Site/Laterality Comments DILATION AND CURETTAGE, DIAG NOSTIC / THERAPEUTIC ABDOMINOPLASTY 07/06/2020 - 07/05/2021 CARPAL TUNNEL RELEASE 07/06/2010 - 07/05/2011 Left Medical History Medical History Date Comments Anxiety Autoimmune disorder (HCC) POTS (postural orthostatic tachycardia syndrome) Celiac disease Family History Medical History Relation Name Comments Celiac disease Other Diabetes Other Lupus Other Anesthesia problems Neg Hx Relation Name Status Comments Other Social History Tobacco Use Types Packs/Day Years [...] on file 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 Gender Identity Female 12/06/2022 6:59 PM CDT Sexual Orientation Straight 12/06/2022 6: 59 PM CDT Obstetrics History Last Filed Vital Signs Vital Sign Reading [...] 01/08/2023 3:25 PM CDT Plan of Treatment Health Maintenance Due Date Last Done Comments Breast Cancer Screening-Mammogram 1980 Cervical Cancer Screening 1980 Colon Cancer Screening-Colonoscopy 1980 Depression Screening 1980 Hepatitis C Screening 1980 DTaP/Tdap/Td Vaccine (1 - Tdap) 1990 Hepatitis B Screening 1997 Regular Well Visit/Exam 18-64 1997 Influenza Vaccine (#1) 2024 0, 06/03/2018 HPV Vaccines Aged Out No longer eligi ble based on patient's age to complete this topic Pneumococcal vaccine <65 Aged Out No longer eligible based on patient's age to complete this topic Insurance [facility] Care Teams Therapy Tech Relationship Specialty Start Date End Date Axel Urbina MD [address] [facility] [address] [place] [address] PCP - General Internal Medicine 12/03/22 Axel Urbina MD [address] [facility] [address] [place] [address] Internal Medicine 12/03/22 Rodri Dunlap MD [address] [place] [address] Referring Physician Orthopedic Surgery 12/03/22
--- OUTSIDE RECORDS SUMMARY | 2024-07-18 17:58 | XMS_ITS | Encounter Summary ---
Author Organization [facility] Address [address] [place] [address] Phone Care Team Providers Care Casting Operator Name Role Phone Axel Urbina MD Primary Care Provider [phone] Axel Urbina MD Unavailable [phone] Rodri Dunlap MD Unavailable [phone] Reason for Visit * Consultation (Routine) - Closed Specialty Diagnoses / Procedures Referred By Contyasmin t Referred To Contact Plastic Surgery Diagnoses Right elbow pain Rodri Dunlap MD [address] [place] [address] Phone: tel: fax: Sabiha Stoddard MD [address] [place] [address] Phone: tel: fax: Referral ID Status Reason Start Date Expiration Date V isits Requested Visits Authorized [id number] Closed Specialty Services Required 12/03/2022 01/02/2024 99 99 Encounter Details Date Type Department Care Team (Late st Contact Info) Description 02/23/2023 9:15 AM CDT Telemedicine [facility] Surgery [address] 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 This was a telemedicine visit with Yaritza chavez which took place via Real- time video connection (InTouch, Zoom or similar).During the visit, I was located at a healthcare facility and the patient was located at home in the [facility]. I was present for the entire service with the resident andpatient/caregiver. I agree with the findings and plan of care as documented in the resident's note.My visit with the patient started at 9:16 and ended at 9:24. My total encounter time on 02/23/2023 was 20 minutes which was spent in the activities documented in the note. This includes time spent prior to the visit and after the visit in direct care of the patient. This time does not include time spent in any separately reportable services.. The patient: has been informed that the visit may not be secure and acknowledged the information. The Attending has explained the option of participating in a telephone or video visit during the COVID-19 public [facility] emergency to them. After being given an opportunity to ask questions about and discuss this type of visit, they verbally consented to proceeding with the telephone/video visit and understand that this service replaces an office visit. Sabiha Stoddard MD PLASTIC POSTOPERATIVE VISIT - PATIENT NOTE Patient: Yaritza Best : 1980 Date of Service: 02/23/2023 PCP: Axel Urbina MD DATE OF VISIT: 02/23/2023 Dear Rodri Dunlap MD, I was pleased to see Yaritza Best today. Yaritza Best is a 42 y.o. female who attends for a postoperative visit following decompression of the RIGHT PIN (with lateral and longitudinal tenotomies of the ECRB tendon) on 01/13/2023. She was lastseen in clinic on 01/29/23 and was noted to be progressing well with improved pain control and no concerns with her surgical site. We discussed that she start to work with PT to address her lateral epicondylitis and she was agreeable to this. Today, she reports that she has been doing relatively well since last seen. She states that her pain prior to the procedure has resolved; however, she notes new pain which appears consistent with lateral epicondylitis which occurs a few times during the day, provoked by certain activities (overall pain 2/10). She reports some wrist pain which her physicaltherapist told her will improve with strengthening. She states she has/has not been participating in physical therapy and I anticipate she will continue to improve with focused therapy. She has not yet returned to work; I anticipate she should be able to return in 2 months. She will begin strengthen ing at the 1 month time point postoperatively. I would like to see her in 2 months for reevaluationand she will call in the interim with any questions or concerns. ATTENDING ATTESTATION: Please see resident/fellow's note. I discussed the case with the resident/fellow, performed the physical examination, reviewed all tests and imaging studies, and agree with the findings and treatmentplan as documented in resident/fellow's note. Briefly, this is a patient doing very well and will see me in 2 months or before as needed tel med is her choice Sabiha Stoddard M.D. Principal Software Architect, [employer] Dr. Sabiha Stoddard is dictating using Fluency Direct. Contour Stitcher nonsensical variances may occur. documented in this encounter Plan of Treatment Not on file documented as of this encounter Visit Diagnoses Diagnosis Posterior interosseous nerve pain, right- Primary documented in this encounter Care Teams Casting Operator Relationship Specialty Start Date End Date Axel Urbina MD [address] [facility] [address] [place] [address] PCP - General Internal Medicine 12/03/22 Axel Urbina MD [address] [facility] [address] [place] [address] Internal Medicine 12/03/22 Rodri Dunlap MD [address] [place] [address] Referring Physician Orthopedic Surgery 12/03/22 documented as of this encounter
--- OUTSIDE RECORDS SUMMARY | 2024-07-18 17:58 | XMS_ITS | Encounter Summary ---
Author Organization [facility] Address [address] [place] [address] Care Team Providers Care Compressor Mechanic Bus Name Role Phone Axel Urbina MD Primary Care Provider [phone] Axel Urbina MD Unavailable [phone] Rodri Dunlap MD Unavailable [phone] Reason for Visit * Auth/Cert (Routine) Specialty Diagnoses / Procedures Referred By Satya verdugo Referred To Contact Diagnoses Posterior interosseous nerve pain, right Posterior interosseous nerve pain, right [G56.31] Procedures AK DCMPRN FASCT F/ARM&/WRST FLXR/XTNSR W/DBRDMT RELEASE POSTERIOR INTEROSSEOUS NERVE Referral ID Status Reason Start Date Expiration Date Visits Re quested Visits Authorized [id number] 1 1 Encounter Details Date Type Department Care Team (Late st Contact Info) Description 01/13/2023 1:40 PM CDT - 01/13/2023 4:55 PM CDT Surgery [facility] Operating Room [facility] [address] [place] [address] Sabiha Stoddard MD [address] [facility] [address] [place] [address] RELEASE POSTERIOR INTEROSSEOUS NERVE Surgery Details Date/Time Status Location OR Service Patient Class Case Cl ass Case Type Trauma Case? 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 Gender Identity Female 12/06/2022 6:59 PM CDT Sexual Orientation Straight 12/06/2022 6: 59 PM CDT documented as of this encounter Last Filed Vital Signs Vital Sign Reading Time Taken Comments Blood Pressure 120/75 01/13/2023 4:50 PM CDT Pulse 100 01/13/2023 4:50 PM CDT Temperature 36.1 ??C (97 ??F) 01/13/2023 4:45 PM CDT Respiratory Rate 16 01/13/2023 4:50 PM CDT Oxygen Saturation 98% 01/13/2023 4:50 PM CDT Inhaled Oxygen Concentration - - [...] and ask for the plastic surgery resident applications consultant if: If you have increased redness along [...] narcotic pain medications, you may take an tayb-gqf-njzigmk antihistamine such as Benadryl. Follow up: Follow up is important to ensure the best possible outcome. Please follow-up with Plastic Surgery at [facility] ([facility]), [address] [place] [address] - [address] [place] [id number] Call with any questions/concerns regarding your scheduled [...] Preoperative Evaluation Record Evaluation type/location: TPAP from [facility] Planned procedure site: [facility] CAM OR (Pod 4) Date: 01/09/23 [...] Medication protocol when under care of a CHIEF DIGITAL MEDIA OFFICER Planned anesthesia: General Induction: Induction: intravenous. Postoperative Plan: Postoperative administration opioids intended. No postoperative mechanical ventilation intended. Informed Consent: Discussed plan with CHIEF DIGITAL MEDIA OFFICER. Anesthesia plan and risks discussed with patient. [...] 01/13/2023 3:02 PM CDT SURGEON SABIHA STODDARD TYPESETTING SUPERVISOR Sari Holland. PREOPERATIVE DIAGNOSIS Compression of right [...] for wound closure. Job ID/Internal Job ID: [id number] * Brief Op Note - Cipriano Randle MD - 01/13/2023 3:02 PM CDT Operative Progress Note Surgical Team: Surgeon(s) and Role: * Sabiha Stoddard MD - Primary * Sari Holland MD - Resident - Assisting * Cipriano Randle MD - Fellow Anesthesiologist: Jannet Crowell MD CHIEF DIGITAL MEDIA OFFICER: Marlene Jimenez CRNA Tube Room Supervisor: Alison Badillo RN; Brea Staley RN Scrub: [...] Preoperative Assessment and Planning CPAP Clinic Location: [facility] The night before your surgery: [...] going to be admitted after surgery at [facility], COVID testing may be performed on the day of surgery, even if you are up to date on your COVID-19 vaccine. * If having surgery at [facility], you may want to bring a credit card if you want to use our Mobile Pharmacy for your discharge medications. Mobile pharmacy is not available at [facility], the Orthopedic Center, or the [facility]. Outpatient Surgery: * You must have a [...] remove nail coverings, artificial nails and nail upper sorbian prior to the day of surgery. You should leave your valuables and any jewelry at home. No metal or piercings are allowed in the operating room. You should bring your insurance card, a photo ID (example: Control Area Operator's License) and a method of payment for [...] Chart. If you are having surgery at [facility], please arrive on the day of surgery [...] Remove nail coverings, artificial nails and nail upper sorbian. The Morning of Surgery: Take a shower [...] questions, please call the CPAP Staff at [phone], Thursday-Thursday 8am-4:30pm. All patients should read the below section: COVID 19 Updates & Visitor Policy: Please access [email or web address] for the most updated information. Information on [facility] & the Orth[facility] Center: Please view [email or web address] (Patient & Visitor Information) for additional details regarding Advanced Directive forms, AWARE, directions, parking information, lodging, Internet access, dining and more. Information on [facility] or [facility] ([facility]): Please view [email or web address] (Patient and Visitor Information) for parking/directions and more. For MyChart information, to activate account or password recovery, please go to [email or web address] or call [phone] (toll-free: [phone]). Information for Suicide Prevention: National Suicide Prevention Lifeline (2-553- 694-CRHD (7619)). Surgery Times: For patients having surgery @ [facility] for [facility] Medicine or [facility] ([facility]), if your surgeon's office has not notified you of your surgery time by NOON THE BUSINESS DAY BEFORE your surgery, please call [phone] and ask for your surgeon's office Dr Stoddard. 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 Communication Needs: Glasses Assistive Devices/DME: Eyeglasses Discharge Planning Type of Residence: Private residence Living Arrangements: Spouse/significant other Support Systems: Spouse/significant other Assistance Needed: her will be caring for her after procedure Patient expects to be discharged to:: Private residence HISTOLOGY SPECIALIST NO documented in this encounter Plan of [...] 01/13/2023 11:5 1 AM CDT Candy Bond FILER METAL PATTERNS POINT OF CARE TEST ORDERABLE S Final Result documented in this encounter Visit Diagnoses Diagnosis Posterior interosseous nerve pain, right- Primary Posterior interosseous nerve pain, right documented in this encounter Admitting Diagnoses Diagnosis Posterior interosseous nerve pain, right documented in this encounter Administered Medications Inactive Administered Medications - up to 3 most recent administrations Medication Order MAR Action Action Date Dose Rate Site acetaminophen (TYLENOL) tablet 1,000 mg 1,000 mg, oral, Once, On Thu01/13/23 at 1330, For 1 dose, Pre-Op Given 01/13/2023 1:12 PM CDT 1,000 mg BUPivacaine (MARCAINE) 0.5 % (5 mg/mL) preservative free injection As needed, Starting on Thu01/13/23 at 1605, Intra-Op Given 01/13/2023 4:05 PM CDT 20 mL Surgical Site HYDROmorphone (DILAUDID) injection 0.2 mg 0.2 mg, [...] Given 01/13/2023 4:50 PM CDT 5 mg sodium chloride 0.9% irrigation As needed, Starting on Thu01/13/23 at 1510, Intra-Op Given 01/13/2023 3:10 PM CDT 1,000 mL Surgical Site documented in this encounter Historical Medications * [...] Count Last Ordered Date First Ordered Date Carrier Fluids for Secondary Infusion - 0.9% Sodium Chloride 1 01/13/2023 ceFAZolin (ANCEF) 2,000 mg/2 0 mL in sterile water (premix) 2,000 mg 1 01/13/2023 fentaNYL (SUBLIMAZE) preserv ative free injection 50 mcg 01/13/2023 HYDROmorphone (DILAUDID) injection 0.4 mg 1 01/13/2023 naloxone (NARCAN) 0.4 mg/mL injection 0.04-0.4 mg 1 01/13/2023 ondansetron (ZOFRAN) injection 4 mg 1 01/13 sodium chloride 0.9% flush 0.5-20 mL 1 01/03 Discharge Count Last Ordered Date First Orde red Date DISCHARGE PATIENT 1 01/13/2023 documented in this encounter Care Teams Compressor Mechanic Bus Relationship Specialty Start Date End Date Axel Urbina MD [address] [facility] [address] [place] [address] PCP - General Internal Medicine 12/03/22 Axel Urbina MD [address] [facility] [address] [place] [address] Internal Medicine 12/03/22 Rodri Dunlap MD [address] [place] [address] Referring Physician Orthopedic Surgery 12/03/22 documented as of this encounter
--- OUTSIDE RECORDS SUMMARY | 2024-07-18 17:59 | XMS_ITS | Encounter Summary ---
Author Organization [facility] Address [address] [place] [address] Phone Care Team Providers Care Vegetable Worker Name Role Phone Axel Urbina MD Primary Care Provider [phone] Axel Urbina MD Unavailable [phone] Rodri Dunlap MD Unavailable [phone] Reason for Referral * Neurology (Routine) - Closed Specialty Diagnoses / Procedures Referred By Satya verdugo Referred To Contact Diagnoses Right elbow pain Procedures EMG/NCV - Sabiha Stoddard MD [address] [place] [address] Phone: tel: fax: [facility] (All Locations) Referral ID Status Reason Start Date Expiration Date Visits Re quested Visits Authorized [id number] Closed 12/15/2022 01/14/2024 1 1 Reason for Visit * Consultation (Routine) - Closed Specialty Diagnoses / Procedures Referred By Satya verdugo Referred To Contact Plastic Surgery Diagnoses Right elbow pain Rodri Dunlap MD [address] [place] [address] Phone: tel: fax: Sabiha Stoddard MD [address] [place] [address] Phone: tel: fax: Referral ID Status Reason Start Date Expiration Date V isits Requested Visits Authorized [id number] Closed Specialty Services Required 12/03/2022 01/02/2024 99 99 Encounter Details Date Type Department Care Team (Late st Contact Info) Description 12/15/2022 9:45 AM CDT Telemedicine [facility] Surgery [address] [facility] Advanced Medicine 6th [place] [address] [place] [address] Sabiha Stoddard MD [address] [place] [address] Right elbow pain Social History Tobacco Use Types Packs/Day Years Used Date Smoking Tobacco: Former Cigarettes 0.5 15.8 2 - 05/2021 Smokeless Tobacco: Never Tobacco Cessation:Counseling Given: Not Answered Alcohol Use Standard Drinks/Week Comments Yes 0 [...] more drinks on one occasion? Monthly 12/12/2022 Comments Unknown Sex and Gender Information Value Date Recorded Sex Assigned at Not on file Legal Sex Female 10:24 AM CUSTOMER SERVICE ATTENDANT Gender Identity Female 12/06/2022 6:59 PM CDT Sexual Orientation Straight 12/06/2022 6: 59 PM CDT documented as of this encounter Progress Notes * May Mcclain MD - 12/15/2022 9:45 AM CDT Images from the original note were not included. This was a telemedicine visit with Yaritza chavez which took place via Real- time video connection (InTouch, Zoom or similar).During the visit, I was located at home and the patient was located at home in the state of [place]. I was present for the entire service with the resident and patient/caregiver. I agree with the findings and plan of care as documented in the resident's note. My visit with the patient started at 9:58am and ended at 10:13am. My total encounter time on 12/15/2022 was 45 minutes which was spent in the activities [...] a telephone or video visit during the [facility] [place] [address] emergency to them. After being given an opportunity to ask questions about and discuss this type of visit, they verbally consented to proceeding with the telephone/video visit and understand that this service replaces an office visit. Sabiha Stoddard MD PLASTIC NEW PATIENT NOTE Patient: Yaritza Best : 1980 Date of Service: 12/14/2022 PCP: Axel Urbina MD Referring Provider: Rodri Dunlap MD DATE OF VISIT: 12/14/2022 Dear Rodri Dunlap MD, thank you for requesting me to see Yaritza Best for right forearm painand signs/symptoms consistent with RIGHT PIN compression I was pleased to review the 17 pages of records. CHIEF COMPLAINT: right elbow pain, c/f PIN compression HISTORY OF PRESENT ILLNESS: Yaritza Best is a 42 y.o. female who is here alone. She is RIGHT hand dominant. She has experienced pain in the dorsal forearm and lateral elbow extending to dorsal wrist/hand, no numbness/tingling/weakness x2 years. Pain 3/10 at baseline, with activity 8-9/10. She has not done PT. 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 No prior trauma. Her referring surgeon's exam noted somelateral epicondylitis and irritability at the lateral radiocapitellar articulation but what reproduced her pain most notably was PIN compression. XRs (per report) were negative. A steroid injection was performed in 05/2022 which improved her symptoms for 2 months. PMH: anxiety, celiac, POTS PSH: abdominoplasty, LEFT CTR, D&C Meds: vitamins/melatonin All: NKDA SH: no tobacco, +EtOH, no illicits. Lives 30 minutes away. 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 I have reviewed 17 pages of information prior to this visit. REVIEW OF SYSTEMS: A thorough review of systems was performed per the patients general health questionnaire. All systems are negative except for history of present illness per patient questionnaire. PHYSICAL EXAM: Focused examination of the RUE reveals tenderness over the radial tunnel with +Tinel's. Decreased sensation in radial nerve distribution in forearm/hand to 8/10. No weakness. Pain worse with supination. ASSESSMENT AND PLAN: This is a 42 y/o with RIGHT PIN compression. We discussed conservative vs surgical management. Given her symptom duration and severity with activities she performs regularly, she has elected to proceed with PIN decompression. We will obtain preop EDX and US to evaluate PIN anatomy. Surgery was discussed in detail, including that this is an outpatient procedure. We discussed the location of incisions. We discussed that she would have a pain ball and drain postoperatively. Postoperative therapy would be: 2 weeks start gentle ROM, 1 month start strengthening, 2 months return to normal activities(including painting). Risks, benefits, and alternatives were presented including bleeding, infection, wound healing issues, damage to surrounding structures, chronic neuropathic pain, limited functional recovery, downgraded function, and incomplete symptom resolution. All questions were answered. We will work toward surgical scheduling prior to January 17 owing to insurance issues. We will also coordinate a preop [place] hand therapy visit at the same time as her preoperative visit. ATTENDING ATTESTATION: Please see resident/fellow's note. I discussed the case with the resident/fellow, performed the physical examination, reviewed all tests and imaging studies, and agree with the findings and treatmentplan as documented in resident/fellow's note. Briefly, this is a patient with what appears to be com pression of the right posterior interosseous nerve in the forearm. She also has a history compatible with some degree of lateral epicondylitis therefore recommended decompression of the nerve as wellas the ECRB tenotomy transversely across the forearm to help with that secondary issue. I talked toher about risks and benefits including potential for nerve injury and hematoma given the vascular nature of this area. I would like her to have electrodiagnostic studies and an ultrasound done I expect the electrodiagnostic studies to be normal but I would like to evaluate to make sure there is nota lipoma or cyst in the area. We plan to move forward with the surgery by early January as her insurance is changing mid January. She is in agreement with the plan and I will look forward to following Sabiha Stoddard M.D. [employer]ander [employer], [facility] Dr. Sabiha Stoddard is dictating using Fluency Direct. Training Designer nonsensical variances may occur. documented in this encounter Plan of Treatment Not on file documented as of this encounter Results * EMG/NCV (12/16/2022 11:14 AM CDT) Anatomical Region Laterality Modality Other Narrative 12/16/2022 11:14 AM CDT Isaias Keller MD ? 12/16/2022 11:15 AM EMG/NCV - Date/Time: 12/16/2022 11:14 AM Performed by: Isaias Keller MD Authorized by: Sabiha Stoddard MD ?? Sabiha Stoddard MD NEUROLOGY ORDERABLES Final Result documented in this encounter Visit Diagnoses Diagnosis Right elbow pain Pain in joint, upper arm Right elbow pain Pain in joint, upper arm documented in this encounter Orders Outpatient Referral Count Last Ordered Date Fir st Ordered Date AMB REFERRAL TO PLASTIC SURGERY 1 3 documented in this encounter Care Teams Vegetable Worker Relationship Specialty Start Date End Date Axel Urbina MD [address] [facility] [address] [place] [address] PCP - General Internal Medicine 12/03/22 Axel Urbina MD [address] [facility] [address] [place] [address] Internal Medicine 12/03/22 Rodri Dunlap MD [address] [place] [address] Referring Physician Orthopedic Surgery 12/03/22 documented as of this encounter
--- OUTSIDE RECORDS SUMMARY | 2024-07-18 17:59 | XMS_ITS | Encounter Summary ---
Author Organization [facility] Address [address] [place] [address] Phone Care Team Providers Care Ore Roaster Name Role Phone Axel Urbina MD Primary Care Provider Axel Urbina MD Unavailable [phone] Rodri Dunlap MD Unavailable [phone] Encounter Details Date Type Department Care Team (Late st Contact Info) Description 12/03/[address] [facility] Surgery [facility] 6th [place] [address] [place] [address] Shahrzad Bolton M.A. 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 - 12/03/2022 3:42 PM CDT Date: 12/03/2022 Reason for Call: Richi Patient Provider: Richi Medical/Surgical Information: Outcome/Plan: Jere to patient to schedule a new patient appointment - Zoom set on 12/15/22 at 9:45 am Patient setting up MyChart documented in this encounter Plan of Treatment Not on file documented as of this encounter Visit Diagnoses Not on filedocumented in this encounter Care Teams Ore Roaster Relationship Specialty Start Date End Date Axel Urbina MD [address] [facility] [address] [place] [address] PCP - General Internal Medicine 12/03/22 Axel Urbina MD [address] [address] Internal Medicine 12/03/22 Rodri Dunlap MD [address] [place] [address] Referring Physician Orthopedic Surgery 12/03/22 documented as of this encounter
--- OUTSIDE RECORDS SUMMARY | 2024-07-18 17:59 | XMS_ITS | Encounter Summary ---
Author Organization [facility] Address [address] [place] [address] Phone Care Team Providers Care Oxyacetylene Cutter Name Role Phone Axel Urbina MD Primary Care Provider [phone] Axel Urbina MD Unavailable [phone] Rodri Dunlap MD Unavailable [phone] Reason for Visit * Neurology (Routine) - Closed Specialty Diagnoses / Procedures Referred By Satya verdugo Referred To Contact Diagnoses Right elbow pain Procedures EMG/NCV - Sabiha Stoddard MD [address] [place] [address] Phone: tel: fax: [facility] (All Locations) Referral ID Status Reason Start Date Expiration Date Visits Re quested Visits Authorized [id number] Closed 12/18/2022 01/17/2024 1 1 Encounter Details Date Type Department Care Team (Latest Contact Info) Description 01/07/2023 8:20 AM CDT Procedure visit [facility] Neurological Testing [address] 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 Gender Identity Female 12/06/2022 6:59 PM CDT Sexual Orientation Straight 12/06/2022 6: 59 PM CDT documented as of this encounter Procedure Notes * Andrea Holt MD - 01/07/2023 8:20 AM CDTAssociated Order(s): EMG/NCV - Pre-Procedure Diagnose(s): Right elbow pain Post-Procedure Diagnose(s): Right elbow pain EMG/NCV - Date/Time: 01/07/2023 8:22 AM Performed by: Andrea Holt MD Authorized by: Sabiha Stoddard MD [facility] DEPARTMENT OF NEUROLOGY NEUROMUSCULAR ELECTRODIAGNOSTIC LABORATORY CLINICAL ELECTROMYOGRAPHY REPORT Patient: Yaritza Best Birthdate: 1980 Study No: [id number] MRN No: [id number] Referring M.D.: Sabiha Stoddard MD Date of Study:01/07/23 Examined by: Andrea Holt MD REASON FOR REFERRAL: A 42 y.o. female complains of right lateral elbow and mani pain. She had a study on 12/16/2022 which was normal. She was referred to evaluate for posterior interosseous neuropathy on the right. The procedure and possible complications were explained to the patient, and verbal consent was obtained. SUMMARY OF FINDINGS: Needle electromyography of the right extensor carpi radialis longus, extensor digitorum communis, extensor pollicis longus, extensor carpi ulnaris, and extensor indicis proprius was normal. The temperature was maintained above 32?? C in the hand and above 30?? C in the foot for all NCSs. CONCLUSION/INTERPRETATION: The study is within normal limits with no evidence in the needle electromyography to support posterior interosseous neuropathy on the right. Andrea Holt MD Electromyographer Zachery. By signing this report, the attending Electromyographer certifies that he/she personally reviewed the electrodiagnostic study and edited the report to fully conform with his/her intent. Abbreviations : CMAP = compound muscle action potential SNAP = sensory nerve action potential CNAP = compound nerve action potential MUP = motor unit potential Fib = fibrillation PSW = positive sharp wave NCS = nerve conduction study RNS = repetitive nerve stimulation Inquiries regarding study/report - call . Appointments - call . Fax no.: . Our correspondence address : [address] [place] [address] Normal values Motor conduction Distal latency (ms) Conduction velocity (m/s) CMAP amplitude (mV) Median < 4.4 > 49 > 4 Ulnar < 3.5 > 49 > 6 Median distal latency minus ulnar distal latency not > 1.4 ms Peroneal < 6.1 > 41 > 2 Tibial < 6.1 > 41 > 3 Sensory conduction Antidromic Wrist-digit Onset latency (ms) Conduction velocity (m/s) SNAP amplitude (mV) Median < 3.4 > 44 > 7 Ulnar < 3.1 > 44 > 5 Median distal latency minus ulnar distal latency not > 0.7 ms Sural < 3.7 > 38 > 5 Mixed Nerve Conduction Mixed orthodromic Palm-wrist Peak latency (ms) CNAP amplitude (mV) Median < 2.3 > 9 Ulnar < 2.3 > 4 Median peak latency minus ulnar peak latency not > 0.3 ms Late responses and reflex studies R1 (ms) Ipsilateral R2 (ms) Contralateral R2 (ms) Blink < 13 < 40 < 41 Reflex/Direct latency ratio 2.6 - 4.6 Sides difference < 1.2 < 5 ms between ipsi- and contralateral R2 elicited by one stimulus < 7 ms between R2, each obtained with an independent stimulation Median Ulnar Peroneal Tibial F wave minimal latency < 31 < 32 < 56 < 58 Tibial H reflex latency (ms): < 34; mvha-ty-zdrk difference < 1.5 Full Name: Yaritza Best Gender: Female Date of : 1980 Visit Date: 01/07/2023 8:33 AM Age: 42 Years Examining Physician: Yanet Referring Physician: Richi Height: 5 feet 6 inch Summary Insertional Spontaneous MUAP Comments Muscle Nerve Roots Activity Fib PSW Fasc Other Dur. Amp Poly Recruit Activate Comments R. Extensor digitorum communis Radial C7-C8 Normal None None None . Normal Normal None Normal Normal . R. Extensor carpi radialis longus Radial C5-C6 Normal None None None . Normal Normal None Normal Normal . R. Extensor pollicis longus Posterior interosseous C7-C8 Normal None None None . Normal Normal NoneNormal Normal . R. Extensor carpi ulnaris Posterior interosseous C7-C8 Normal None None None . Normal Normal None Normal Normal . R. Extensor indicis proprius Radial C7-C8 Normal None None None . Normal Normal None Normal Normal . documented in this encounter Plan of Treatment Not on file documented as of this encounter Procedures Procedure Name Priority Date/Time Associated Diagnosis Comments EMG/NCV Routine 01/07/2023 8:22 AM CDT Right elbow pain documented in this encounter Results * EMG/NCV (01/07/2023 8:22 AM CDT) Anatomical Region Laterality Modality Other Narrative 01/07/2023 8:22 AM CDT Andrea Holt MD ? 01/07/2023 ??9:01 AM EMG/NCV - Date/Time: 01/07/2023 8:22 AM Performed by: Andrea Holt MD Authorized by: Sabiha Stoddard MD ?? Sabiha Stoddard MD NEUROLOGY ORDERABLES Final Result documented in this encounter Visit Diagnoses Diagnosis Right elbow pain Pain in joint, upper arm documented in this encounter Care Teams Oxyacetylene Cutter Relationship Specialty Start Date End Date Axel Urbina MD [address] [facility] [address] [place] [address] PCP - General Internal Medicine 12/03/22 Axel Urbina MD [address] [facility] [address] [place] [address] Internal Medicine 12/03/22 Rodri Dunlap MD [address] [place] [address] Referring Physician Orthopedic Surgery 12/03/22 documented as of this encounter
--- OUTSIDE RECORDS SUMMARY | 2024-07-18 17:59 | XMS_ITS | Encounter Summary ---
Author Organization [facility] Address [address] [place] [address] Phone Care Team Providers Care Loom Fixer Apprentice Name Role Phone Axel Urbina MD Primary Care Provider [phone] Axel Urbina MD Unavailable [phone] Rodri Dunlap MD Unavailable [phone] Reason for Visit * Neurology (Routine) - Closed Specialty Diagnoses / Procedures Referred By Satya verdugo Referred To Contact Diagnoses Right elbow pain Procedures EMG/NCV - Sabiha Stoddard MD [address] [place] [address] Phone: tel: fax: [facility] (All Locations) Referral ID Status Reason Start Date Expiration Date Visits Re quested Visits Authorized [id number] Closed 12/15/2022 01/14/2024 1 1 Encounter Details Date Type Department Care Team (Latest Contact Info) Description 12/16/2022 8:40 AM CDT Procedure visit [facility] Neurological Testing [address] [facility] 6th [place] [address] [place] [address] Right elbow pain Social History [...] on file 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 EMG/NCV - Date/Time: 12/16/2022 11:14 AM Performed by: Isaias Keller MD Authorized by: Sabiha Stoddard MD [facility] DEPARTMENT OF NEUROLOGY NEUROMUSCULAR ELECTRODIAGNOSTIC LABORATORY CLINICAL ELECTROMYOGRAPHY REPORT Patient: Yaritza Best Birthdate: 1980 Study No: [id number] MRN No: [id number] Referring M.D.: Sabiha Stoddard MD Date of Study:12/16/22 Examined by: Isaias Keller MD REASON FOR REFERRAL: Right elbow pain and hand numbness. The procedure and possible complications were explained to the patient and a verbal consent was obtained. SUMMARY OF FINDINGS: 1. Right median and ulnar motor nerve conduction studies are normal. 2. Right median and ulnar antidromic sensory nerve conduction studies are normal. 3. Needle EMG in proximal distal muscles of the right upper extremity is normal. Temperature was maintained above 32??C in the hand and above 30??C in the foot for all NCSs. CONCLUSION/INTERPRETATION: No findings of right median or ulnar neuropathy or cervical radiculopathy. Nerve ultrasound was performed and is reported separately. Isaias Keller MD Electromyographer Zachery. By signing this report, [...] Fax no.: . Our correspondence address : [address], [address], [place] [id number] Normal values Motor conduction Distal latency (ms) [...] Tibial H reflex latency (ms): < 34; svcc-cw-fdxy difference < 1.5 [facility] Neurology, [facility] [place], [place] Data Report Full Name: Yaritza Best Gender: Female Date of : 1980 Visit Date: 12/16/2022 8:42 AM Age: 42 Years Examining Physician: Arianna Referring Physician: Richi Height: 5 feet 6 inch MNC Nerve / Sites Latency Amplitude Segments Distance Lat Diff Velocity ms mV mm ms m/s R Median - APB Wrist 3.63 10.5 Wrist - APB 70 Elbow 7.90 10.3 Elbow - Wrist 225 4.27 52.7 R Ulnar - ADM Wrist 2.67 16.5 Wrist - ADM 70 B.Elbow 6.17 15.3 B.Elbow - Wrist 190 3.50 54.3 A.Elbow 8.02 14.6 A.Elbow - B.Elbow 100 1.85 53.9 Axilla 9.63 14.4 Axilla - A.Elbow 100 1.60 62.3 R Ulnar - FDI WRIST 4.48 12.2 WRIST - FDI BELOW ELBOW 8.13 11.9 BELOW ELBOW - WRIST 190 3.65 52.1 ABOVE ELBOW 10.02 11.9 ABOVE ELBOW - BELOW ELBOW 100 1.90 52.7 SNC Nerve / Sites Onset Lat Peak Lat Amplitude OnsetDiff Distance Cond Jh ms ms ??V ms mm m/s R Median, Ulnar - Digits 1, 3, 5 Median Digit 1 2.5 3.0 31 2.5 100 40 Median Digit 3 2.9 3.7 34 2.9 140 48 Ulnar Digit 5 2.6 3.4 32 2.6 140 53 Summary Insertional Spontaneous MUAP Comments Muscle Nerve Roots Activity Fib PSW Fasc Other Dur. Amp Poly Recruit Activate Comments R. Deltoid Axillary C5-C6 Normal None None None . Normal Normal None Normal Normal . R. Biceps brachii Musculocutaneous C5-C6 Normal None None None . Normal Normal None Normal Normal . R. Triceps brachii (Lateral head) Radial C6-C8 Normal None None None . Normal Normal None Normal Normal . R. Flexor carpi radialis Median C6-C7 Normal None None None . Normal Normal None Normal Normal . R. First dorsal interosseous Ulnar C8-T1 Normal None None None . Normal Normal None Normal Normal . documented in this encounter Plan of Treatment Not on file documented as of this encounter Procedures Procedure Name Priority Date/Time Associated Diagnosis Comments EMG/NCV Routine 12/16/2022 11:14 AM CDT Right elbow pain documented in this encounter Results * EMG/NCV (12/16/2022 11:14 [...] arm documented in this encounter Care Teams Loom Fixer Apprentice Relationship Specialty Start Date End Date Axel Urbina MD [address] [id number] PCP - General Internal Medicine 12/03/22 Axel Urbina MD [address] [address] Internal Medicine 12/03/22 Rodri Dunlpa MD [address] [place] [address] Referring Physician Orthopedic Surgery 12/03/22 documented as of this encounter
--- OUTSIDE RECORDS SUMMARY | 2024-07-18 17:59 | XMS_ITS | Encounter Summary ---
Author Organization [facility] Address [address] [place] [address] Phone Care Team Providers Care Fence Erector Supervisor Name Role Phone Axel Urbina MD Primary Care Provider [phone] Axel Urbina MD Unavailable [phone] Rodri Dunlap MD Unavailable [phone] Reason for Referral * Neurology (Routine) - Closed Specialty Diagnoses / Procedures Referred By Satya verdugo Referred To Contact Diagnoses Right elbow pain Procedures EMG/NCV - Sabiha Stoddard MD [address] [place] [address] Phone: tel: fax: [facility] (All Locations) Referral ID Status Reason Start Date Expiration Date Visits Re quested Visits Authorized [id number] Closed 12/18/2022 01/17/2024 1 1 Encounter Details Date Type Department Care Team (Late st Contact Info) Description 12/18/2022 Orders Only [facility] Surgery [address] [facility] 6th [place] [address] [place] [address] Sabiha Stoddard MD [address] [place] [address] Right elbow pain (Primary Dx) Social History Tobacco Use Types [...] on file 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 01/07/2023 ??9:01 AM EMG/NCV - Date/Time: 01/07/2023 8:22 AM Performed by: Andrea Holt MD Authorized by: Sabiha Stoddard MD ?? Sabiha Stoddard MD NEUROLOGY ORDERABLES Final Result documented in this encounter Visit Diagnoses Diagnosis Right elbow pain- Primary Pain in joint, upper arm Right elbow pain Pain in joint, upper arm documented in this encounter Care Teams Fence Erector Supervisor Relationship Specialty Start Date End Date Axel Urbina MD [address] [facility] [address] [place] [address] PCP - General Internal Medicine 12/03/22 Axel Urbina MD [address] [facility] [address] [place] [address] Internal Medicine 12/03/22 Rodri Dunlap MD [address] [place] [address] Referring Physician Orthopedic Surgery 12/03/22 documented as of this encounter
--- OUTSIDE RECORDS SUMMARY | 2024-07-18 17:59 | XMS_ITS | Encounter Summary ---
Author Organization [facility] Address [address] [place] [address] Phone Care Team Providers Care Contract Analyst Name Role Phone Axel Urbina MD Primary Care Provider [phone] Axel Urbina MD Unavailable [phone] Rodri Dunlap MD Unavailable [phone] Reason for Visit * Consultation (Routine) - Closed Specialty Diagnoses / Procedures Referred By Contyasmin t Referred To Contact Plastic Surgery Diagnoses Right elbow pain Rodri Dunlap MD [address] [place] [address] Phone: tel: fax: [place] [address] [place] [address] [place] [address] Phone: tel: fax: Referral ID Status Reason Start Date Expiration Date V isits Requested Visits Authorized [id number] Closed Specialty Services Required 12/03/2022 01/02/2024 99 99 Encounter Details Date Type Department Care Team (Late st Contact Info) Description 01/08/2023 1:00 PM CDT Office Visit [facility] Surgery [address] [facility] 6th [place] [address] [place] [id number] Sabiha Stoddard MD [address] [place] [address] Posterior interosseous nerve pain, right (Primary Dx) [...] on file 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 PLASTIC ESTABLISHED PATIENT NOTE Patient: Yaritza Best : 1980 Date of Service: 01/07/2023 PCP: Axel Urbina MD DATE OF VISIT: 01/07/2023 CHIEF COMPLAINT: R elbow and forearm pain HISTORY OF PRESENT ILLNESS: Yaritza Best is a 42 y.o. RHD female who is here for evaluation of right elbow pain and concern for PIN compression. She came with her daughter. She was previously seen as a telemedicine visit. EMG testing of radial nerve innervated musculature did not show any evidence of muscle denervation by the PIN. Similarly ultrasound of the posterior interosseous nerve did not show any lipoma or cyst.. She does have a history of having an MRI of her CC mind about 13 years ago and recent x-ray showed some cervical arthritic changes. She does have some nocturnal symptoms of discomfort in the right shoulder and active grasp reproduces some neck pain. Thirteen years ago she had injections for bulging discs. 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 She is had 2-3 years of intermittent lateral elbow pain and forearm pain with increased symptoms with work and playing tennis. This discomfort radiates to the 2 middle digits dorsally. Her pain today was about 5/10 with discomfort at the dorsal right elbow region PMH: anxiety, autoimmune disorder, celiac disease, POTS PSH: abdominoplasty (2011), LEFT carpal tunnel release (2010), D&C Meds: vitamins/melatonin All: NKDA SH: Former smoker (quit 2020), +EtOH, no illicits. Lives 30 [place] away with and 2 daughters. 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 EDX (01/07/2023): Dr. Holt - no findings to support PIN neuropathy on the right R. EDC: no fibs/psws. Normal MUAPs. R. ECRL: no fibs/psws. Normal MUAPs. R. EPL: no fibs/psws. Normal MUAPs. R. ECU: no fibs/psws. Normal MUAPs. R. EIP: no fibs/psws. Normal MUAPs. Ultrasound (01/07/23): . No compressive elements of PIN visualized. REVIEW OF SYSTEMS: A thorough review of systems was performed per the patients general health questionnaire. All systems are negative except for history of present illness per patient questionnaire. PHYSICAL EXAM: She has evidence of right lateral epicondylitis as well as compression of the right posterior interosseous nerve at its entrapment point in the proximal forearm. Her pinch and longwall foreman on the right was 27 and 39 and on the left 23 and 47. Her sensory collapse test was positive at the right cervical C-spine. ASSESSMENT AND PLAN: Yaritza Best presents today for evaluation of R lateral elbow and forearm pain. Her electrodiagnostic studies were not consistent with denervation of PIN- innervated musculature and her ultrasound revealed normal echo intensity of the anterior forearm compartment musculature without identification ofany masses. Her exam remains consistent with compression of the PIN . She also has a degree of lateral epicondylitis, so I will likely perform a transverse release of the ECRB at the time of the posterior interosseous nerve decompression to take some of the extra tension off the attachment of the ECRB tendon to the lateral epicondyle.We will proceed with surgical planning on 01/13 for PIN decompression. Surgery was discussed in detail, including that this is an outpatient procedure. We discussedthe location of incisions. Risks, benefits, and alternatives were presented including bleeding, infection, wound healing issues, damage to surrounding structures, chronic neuropathic pain, limited functional recovery, downgraded function, and incomplete symptom resolution. All questions were answered. ATTENDING ATTESTATION: Please see resident/fellow's note. I discussed the case with the resident/fellow, performed the physical examination, reviewed all tests and imaging studies, and agree with the findings and treatmentplan as documented in resident/fellow's note. Briefly, this is a patient who is here with her daughter to discuss upcoming surgery to decompress the right posterior interosseous nerve. I will also dothe lateral release of the tendon of the extensor carpi radialis brevis muscle within the muscle ofthe ECRB to decompress the lateral epicondyle as well. Postoperatively we will add therapy for lateral epicondylitis to the regular postoperative therapy which was discussed in detail with the patient today by myself and our lead hand therapist. I am optimistic that this will help her significant lateral arm pain. I think she probably has some ongoing issues at the C-spine level and this has alsobeen discussed with the patient today. Our hand therapist evaluated her as well today and discussed with her the typical postoperative course. I will look forward to working with her. Sabiha Stoddard M.D. Pharmacist, [facility] Dr. Sabiha Stoddard is dictating using Fluency Direct. Rivet Passer nonsensical variances may occur. documented in this encounter Plan of Treatment Not on file documented as of this encounter Visit Diagnoses Diagnosis Posterior interosseous nerve pain, right- Primary documented in this encounter Care Teams Contract Analyst Relationship Specialty Start Date End Date Axel Urbina MD [address] [address] PCP - General Internal Medicine 12/03/22 Axel Urbina MD [address] [facility] [address] [place] [address] Internal Medicine 12/03/22 Rodri Dunlap MD [address] [place] [address] Referring Physician Orthopedic Surgery 12/03/22 documented as of this encounter
--- OUTSIDE RECORDS SUMMARY | 2024-07-18 17:59 | XMS_ITS | Encounter Summary ---
Author Organization [facility] Address [address] [place] [address] Phone Care Team Providers Care Linux Server Engineer Name Role Phone Axel Urbina MD Primary Care Provider [phone] Reason for Visit * Consultation (Routine) - Closed Specialty Diagnoses / Procedures Referred By Satya verdugo Referred To Contact Otolaryngology Diagnoses Hearing loss, unspecified hearing loss type, unspecified laterality Axel Urbina MD [address] [address] Phone: tel: fax: [facility] (All Locations) Referral ID Status Reason Start Date Expiration Date V isits Requested Visits Authorized [id number] Closed Specialty Services Required 06/21/2020 07/21/2021 3 3 Encounter Details Date Type Department Care Team (Latest Contact Info) Description 08/15/2020 8:30 AM MERGERS AND ACQUISITIONS CONSULTANT Procedure visit [facility] Otolaryngology [address] [facility] [address] Office [address] [place] [address] Sabiha Crawford CCC-A [address] DEPT OTOLARYNGOLOGY, [facility] [address] [place] [address] Asymmetrical left sensorineural hearing loss (Primary Dx) Social History Tobacco Use Types Packs/Day Years Used Date Smoking Tobacco: Former Smokeless Tobacco: Never Alcohol Use Standard Drinks/Week Comments Yes 0 (1 standard drink = 0.6 oz pur e alcohol) Comments Unknown Sex and Gender Information Value Date Recorded Sex Assigned at Not on file Legal Sex Female 10:24 AM MERGERS AND ACQUISITIONS CONSULTANT Gender Identity Female 12/06/2022 6:59 PM CDT Sexual Orientation Straight 12/06/2022 6: 59 PM CDT documented as of this encounter Procedure Notes * Sabiha Crawford CCC-A - 08/15/2020 8:30 AM CST Procedures Name: Yaritza Best : 1980 DOS: /date See scanned audiogram for results. History: Pt was referred by Dr. Estrada. Pt reports hearing loss AU. Pt stated not hearing well . Pt denies tinnitus, noise exposure, and vertigo. Pt reports family of history of age-related hearing loss (father). Otoscopy: Right ear: WNL non-occluding wax Left ear: WNL non-occluding wax Audiometric testing: Right ear: WNL WRS= 96 % (55 dB HL/ 35dB HL) SRT 5 dB HL Left ear: WNL to mild SNHL WRS= 100 % (55 dB HL/ 35dB HL); 5 dB HL Tympanometry: Right ear: WNL Left ear: WNL Testing and results were reviewed with patient. Patient's questions were answered. Recommendations: Follow-up with Dr Estrada Hearing protection in noise Annual hearing evaluation Sabiha Crawford MS, CCC-A ERS AND ACQUISITIONS CONSULTANT documented in this encounter Plan of Treatment Not on file documented as of this encounter Procedures Procedure Name Priority Date/Time Associated Diagnosis Comments AUDBASE RESULTS 08/15/2020 8:26 AM MERGERS AND ACQUISITIONS CONSULTANT documented in this encounter Results * AUDBASE RESULTS (08/15/2020 8:26 AM MERGERS AND ACQUISITIONS CONSULTANT) Provider Scanning AUDIOLOGY SERVICES ORDERABLES Final Result documented in this encounter Visit Diagnoses Diagnosis Asymmetrical left sensorineural hearing loss- Primary Sensorineural hearing loss, asymmetrical documented in this encounter Care Teams Linux Server Engineer Relationship Specialty Start Date End Date Axel Urbina MD [address] [facility] [address] [place] [address] PCP - General Internal Medicine 06/21/20 12/02/22 documented as of this encounter
--- OUTSIDE RECORDS SUMMARY | 2024-07-18 17:59 | XMS_ITS | Encounter Summary ---
Author Organization [facility] Address [address] [place] [address] Phone Care Team Providers Care Elevator Supervisor Name Role Phone Axel Urbina MD Primary Care Provider [phone] Axel Urbina MD Unavailable [phone] Rodri Dunlap MD Unavailable [phone] Encounter Details Date Type Department Care Team (Late st Contact Info) Description 12/22/2022 Telephone [facility] Surgery [address] [facility] 6th [place] [address] [place] [address] Shahrzad Bolton M.A. 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 - 12/22/2022 11:32 AM CDT Date: 12/22/2022 Reason for Call: Schedule Surgery Patient Provider: [facility] Information: Outcome/Plan: Call to patient to schedule her preop appointment and surgery date. Preop - , 01/08/23 Surgery - 01/13/23 Will set appointments after her preop appt. documented in this encounter Plan of Treatment Not on file documented as of this encounter Visit Diagnoses Not on filedocumented in this encounter Care Teams Elevator Supervisor Relationship Specialty Start Date End Date Axel Urbina MD [address] [facility] [address] [place] [address] PCP - General Internal Medicine 12/03/22 Axel Urbina MD [address] [facility] [address] [place] [address] Internal Medicine 12/03/22 Rodri Dunlap MD [address] [place] [address] Referring Physician Orthopedic Surgery 12/03/22 documented as of this encounter
--- OUTSIDE RECORDS SUMMARY | 2024-07-18 17:59 | XMS_ITS | Encounter Summary ---
Author Organization [facility] Address [address] [place] [address] Phone Care Team Providers Care Development Mgr Name Role Phone Axel Urbina MD Primary Care Provider [phone] Axel Urbina MD Unavailable [phone] Rodri Dunlap MD Unavailable [phone] Encounter Details Date Type Department Care Team (Latest Contact Info) Description 12/16/2022 9:30 AM CDT Office Visit [facility] Neurological Testing [address] [facility] 6th [place] [address] [place] [address] Right elbow pain [M25.521 (ICD-10-CM)] (Primary Dx) Social History Tobacco Use Types [...] on file Legal Sex Female 10:24 AM BURNER HAND Gender Identity Female 12/06/2022 6:59 PM CDT Sexual Orientation Straight 12/06/2022 6: 59 PM CDT documented as of this encounter Procedure Notes * Isaias Keller MD - 12/16/2022 9:30 AM CDT Images from the original note were not included. Procedures [facility] [address] [place] [address] - Home Page: [email or web address] ULTRASOUND Patient Name: YARITZA BEST Medical Record Number (MRN): [id number] Date of (): 1980 Encounter Date: 12/16/2022 Study Number: [id number] Performed by: Arianna Chief Complaint Yaritza Best is a 42 y.o. female seen today for right elbow pain and hand numbness. DESCRIPTION OF ULTRASOUND FINDINGS: B-mode ultrasound was performed on the Right Arm . The median and ulnar nerve along their entire length in the arm with Cine loop recorded were normal from the armthrough the wrist. No focal enlargements or external compressive structures were seen. There was no subluxation of the ulnar nerve with elbow flexion. The anterior forearm compartment muscles showed normal echointensity for age and body habitus. No effusion was seen in the volar quadrant of the wrist joint. No tenosynovitis or abnormal blood flow in the tendons within the carpal tunnel overlying the volar wrist. No cyst, effusion, or tendinopathy was seen within the pisio-hamate joint/guyons canal. No cyst at the ulnar groove/cubital tunnel of the elbow. INTERPRETATION: No abnormalities were seen on ultrasound of the imaged nerves of the right arm. Isaias Keller M.D. Brine Well Operator of Neurology Neuromuscular Division AP/ files lab billing Med Records Images in the report are not intended for interpretation Nerve size normal reference values: Muscle Nerve. 2008;40(6):960-6 and 2007;37(5):566-71 documented in this encounter Plan of Treatment Not on file documented as of this encounter Visit Diagnoses Diagnosis Right elbow pain [M25.521 (ICD-10-CM)]- Primary Pain in joint, upper arm documented in this encounter Care Teams Development Mgr Relationship Specialty Start Date End Date Axel Urbina MD [address] [facility] [address] [place] [address] PCP - General Internal Medicine 12/03/22 Axel Urbina MD [address] [facility] [address] [place] [address] Internal Medicine 12/03/22 Rodri Dunlap MD [address] [place] [address] Referring Physician Orthopedic Surgery 12/03/22 documented as of this encounter
--- OUTSIDE RECORDS SUMMARY | 2024-07-18 17:59 | XMS_ITS | Encounter Summary ---
Author Organization [facility] Address [address] [place] [address] Phone Care Team Providers Care Final Armature Tester Name Role Phone Axel Urbina MD Primary Care Provider [phone] Axel Urbina MD Unavailable [phone] Rodri Dunlap MD Unavailable [phone] Encounter Details Date Type Department Care Team (Late st Contact Info) Description 01/07/2023 Telephone [facility] Surgery [address] [facility] 6th [place] [address] [place] [address] Shahrzad Bolton M.A. 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 No changes in the current plan for surgery. CY to discuss with patient in office tomorrow. * Telephone Encounter - Shahrzad Bolton M.A. - 01/07/2023 1:39 PM CDT Date: 01/07/2023 Reason for Call: Appointment Patient Provider: [facility] Information: Outcome/Plan: Return call from patient re: her EMG & US results. Patient first wanted to know if she could get the results via telemed. Advised her appointment on , 01/08/23 would be her preop appointment for her upcoming surgery on 01/13/23. Next, patient said she was told her results were normal and she is wanting to know if Dr. Stoddardwould still do surgery or refer her back to Dr. Dunlap for steroid injections. Advised I would ask Dr. Stoddard. documented in this encounter Plan of Treatment Not on file documented as of this encounter Visit Diagnoses Not on filedocumented in this encounter Care Teams Final Armature Tester Relationship Specialty Start Date End Date Axel Urbina MD [address] [facility] [address] [place], [place] [address] PCP - General Internal Medicine 12/03/22 Axel Urbina MD [address] [facility] [address] [place], [place] [address] Internal Medicine 12/03/22 Rodri Dunlap MD [address] [place] [address] Referring Physician Orthopedic Surgery 12/03/22 documented as of this encounter
--- OUTSIDE RECORDS SUMMARY | 2024-07-18 17:59 | XMS_ITS | Encounter Summary ---
Author Organization [facility] Address [address] [place] [address] Phone Care Team Providers Care Restaurant Inspector Name Role Phone Axel Urbina MD Primary Care Provider [phone] Encounter Details Date Type Department Care Team (Late st Contact Info) Description 08/17/2020 Telephone [facility]) - [facility] ENT [address] [facility] [place] [address] [place] [address] Leslie Owen CMA Social History Tobacco Use Types Packs/Day Years Used Date Smoking Tobacco: Former Smokeless Tobacco: Never Alcohol Use Standard Drinks/Week Comments Yes 0 (1 standard drink = 0.6 oz pur e alcohol) Comments Unknown Sex and Gender Information Value Date Recorded Sex Assigned at Not on file Legal Sex Female 10:24 AM SECURITY ENGINEER Gender Identity Female 12/06/2022 6:59 PM CDT Sexual Orientation Straight 12/06/2022 6: 59 PM CDT documented as of this encounter Miscellaneous Notes * Telephone Encounter - Leslie Lopez CMA - 08/17/2020 10:47 AM SECURITY ENGINEER I called Ms. Best today to let her know that she did have minimal high frequency hearing loss and that she did not need amplification at this time. RITY ENGINEER documented in this encounter Plan of Treatment Not on file documented as of this encounter Visit Diagnoses Not on filedocumented in this encounter Care Teams Restaurant Inspector Relationship Specialty Start Date End Date Axel Urbina MD [address] [facility] [address] [place] [address] PCP - General Internal Medicine 06/21/20 12/02/22 documented as of this encounter
--- OUTSIDE RECORDS SUMMARY | 2024-07-18 17:59 | XMS_ITS | Encounter Summary ---
Author Organization [facility] Address [address] [place] [address] Phone Care Team Providers Care Automatic Serging Machine Operator Name Role Phone Axel Urbina MD Primary Care Provider Axel Urbina MD Unavailable [phone] Rodri Dunlap MD Unavailable [phone] Encounter Details Date Type Department Care Team (Late st Contact Info) Description 12/08/2022 Telephone [facility] Surgery [facility] 6th [place] [address] [place] [address] Shahrzad Bolton M.A. 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 Left voicemail documented in this encounter Plan of Treatment Not on file documented as of this encounter Visit Diagnoses Not on filedocumented in this encounter Care Teams Automatic Serging Machine Operator Relationship Specialty Start Date End Date Axel Urbina MD [address] [facility] [address] [place] [address] PCP - General Internal Medicine 12/03/22 Axel Urbina MD [address] [facility] [address] [place], [place] [address] Internal Medicine 12/03/22 Rodri Dunlap MD [address] [place] [address] Referring Physician Orthopedic Surgery 12/03/22 documented as of this encounter
--- OUTSIDE RECORDS SUMMARY | 2024-07-18 17:59 | XMS_ITS | Encounter Summary ---
Author Organization [facility] Address [address] [place] [address] Phone Care Team Providers Care Oncology Admin Name Role Phone Axel Urbina MD Primary Care Provider Axel Urbina MD Unavailable [phone] Rodri Dunlap MD Unavailable [phone] Encounter Details Date Type Department Care Team (Late st Contact Info) Description 01/07/2023 Telephone [facility] Surgery [address] [facility] 6th [place] [address] [place] [address] Shahrzad Bolton M.A. 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 - 01/07/2023 5:57 PM CDT Date: 01/07/2023 Reason for Call: Offer Earlier Surgery Date Patient Provider: [facility] Information: Outcome/Plan: Call to patient to offer 01/09/23 as an earlier surgery date - Patient declined and will keep her original date of 01/13/2023 documented in this encounter Plan of Treatment Not on file documented as of this encounter Visit Diagnoses Not on filedocumented in this encounter Care Teams Oncology Admin Relationship Specialty Start Date End Date Axel Urbina MD [address] [facility] [address] [place] [address] PCP - General Internal Medicine 12/03/22 Axel Urbina MD [address] [facility] [address] [place] [address] Internal Medicine 12/03/22 Rodri Dunlap MD [address] [place] [address] Referring Physician Orthopedic Surgery 12/03/22 documented as of this encounter
--- OUTSIDE RECORDS SUMMARY | 2024-07-18 17:59 | XMS_ITS | Encounter Summary ---
Author Organization [facility] Address [address] [place] [address] Phone Care Team Providers Care Technical System Analyst Name Role Phone Axel Urbina MD Primary Care Provider Axel Urbina MD Unavailable [phone] Rodri Dunlap MD Unavailable [phone] Encounter Details Date Type Department Care Team (Late st Contact Info) Description 12/16/2022 Telephone [facility] Surgery [address] [facility] Advanced [facility] 6th [place] [address] [place] [address] Mayra Alvarado Social History Tobacco [...] on file Legal Sex Female 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 -needs EDX LAZARO to evaluate RUE (query radial nerve) -needs US LAZARO to evaluate PIN for any irregularities/masses/etc -needs preop [facility] hand therapy eval same day as preop visit with CY documented in this encounter Plan of Treatment Not on file documented as of this encounter Visit Diagnoses Not on filedocumented in this encounter Care Teams Technical System Analyst Relationship Specialty Start Date End Date Axel Urbina MD [address] [facility] [address] [place] [address] PCP - General Internal Medicine 12/03/22 Axel Urbina MD [address] [facility] [address] [place] [address] Internal Medicine 12/03/22 Rodri Dunlap MD [address] [place] [address] Referring Physician Orthopedic Surgery 12/03/22 documented as of this encounter
--- OUTSIDE RECORDS SUMMARY | 2024-07-18 17:59 | XMS_ITS | Encounter Summary ---
Author Organization 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 Gender Identity Female 12/06/2022 6:59 PM CDT Sexual Orientation Straight 12/06/2022 6: 59 PM CDT documented as of this encounter Miscellaneous Notes * Telephone Encounter - Mayra Alvarado - 12/15/2022 10:45 AM CDT Date: 12/15/2022 Reason for Call: EMG/US appointments Patient Provider: [facility] Information: Outcome/Plan: patient made aware of appointments for EMG and US documented in this encounter Plan of Treatment Not on file documented as of this encounter Visit Diagnoses Not on filedocumented in this encounter Care Teams Mineral Mixer Relationship Specialty Start Date End Date Axel Urbina MD [address] [facility] [address] [place] [address] PCP - General Internal Medicine 12/03/22 Axel Urbina MD [address] [facility] [address] [place] [address] Internal Medicine 12/03/22 Rodri Dunlap MD [address] [place] [address] Referring Physician Orthopedic Surgery 12/03/22 documented as of this encounter
--- OUTSIDE RECORDS SUMMARY | 2024-07-18 17:59 | XMS_ITS | Encounter Summary ---
Author Organization [facility] Address [address] [place] [address] Phone Care Team Providers Care Jewelry Appraiser Name Role Phone Axel Urbina MD Primary Care Provider Axel Urbina MD Unavailable [phone] Rodri Dunlap MD Unavailable [phone] Encounter Details Date Type Department Care Team (Late st Contact Info) Description 12/12/2022 Telephone [facility] Surgery [address] [facility] Advanced [facility] 6th [place] [address] [place] [address] Mayra Alvarado Social History Tobacco [...] on file Legal Sex Female 10:24 AM ENERGY CONTROL OFFICER Gender Identity Female 12/06/2022 6:59 PM CDT Sexual Orientation Straight 12/06/2022 6: 59 PM CDT documented as of this encounter Miscellaneous Notes * Telephone Encounter - Mayra Alvarado - 12/12/2022 5:01 PM CDT Date: 12/12/2022 Reason for Call: update MU Patient Provider: [facility] Information: Outcome/Plan: MU updated documented in this encounter Plan of Treatment Not on file documented as of this encounter Visit Diagnoses Not on filedocumented in this encounter Care Teams Jewelry Appraiser Relationship Specialty Start Date End Date Axel Urbina MD [address] [facility] [address] [place] [address] PCP - General Internal Medicine 12/03/22 Axel Urbina MD [address] [facility] [address] [place] [address] Internal Medicine 12/03/22 Rodri Dunlap MD [address] [place] [address] Referring Physician Orthopedic Surgery 12/03/22 documented as of this encounter
--- OUTSIDE RECORDS SUMMARY | 2024-07-18 17:59 | XMS_ITS | Encounter Summary ---
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 LVM documented in this encounter Plan of Treatment Not on file documented as of this encounter Visit Diagnoses Not on filedocumented in this encounter Care Teams Guardian Family Member Relationship Specialty Start Date End Date Axel Urbina MD [address] [facility] [address] [place] [address] PCP - General Internal Medicine 12/03/22 Axel Urbina MD [address] [facility] [address] [place] [address] Internal Medicine 12/03/22 Rodri Dunlap MD [address] [place] [address] Referring Physician Orthopedic Surgery 12/03/22 documented as of this encounter
--- OUTSIDE RECORDS SUMMARY | 2024-07-18 17:59 | XMS_ITS | Encounter Summary ---
Author Organization [facility] Address [address] [place] [address] Phone Care Team Providers Care Pinking Sewing Machine Operator Name Role Phone Axel Urbina MD Primary Care Provider [phone] Axel Urbina MD Unavailable [phone] Rodri Dunlap MD Unavailable [phone] Encounter Details Date Type Department Care Team (Latest Contact Info) Description 01/07/2023 10:30 AM CDT Office Visit [facility] Neurological Testing [address] [facility] 6th [place] [address] [place] [address] Right elbow pain (Primary Dx) Social History [...] on file Legal Sex Female 10:24 AM EGG CANDLER Gender Identity Female 12/06/2022 6:59 PM CDT Sexual Orientation Straight 12/06/2022 6: 59 PM CDT documented as of this encounter Procedure Notes * Andres Maggie Bowman, MOTOR ROOM CONTROLLER - 01/07/2023 10:30 AM CDT Images from the original note were not included. Procedures [facility] NEUROMUSCULAR DIVISION [facility] [address] [place] [id number] - Home Page: [email or web address] ULTRASOUND Patient Name: YARITZA BEST Medical Record Number (MRN): [id number] Date of (): 1980 Encounter Date: 01/07/2023 Study Number: [id number] Performed by: Celeste Chief Complaint Yaritza Best is a 42 y.o. female seen today for DESCRIPTION OF ULTRASOUND FINDINGS: B-mode ultrasound was performed on the Right Arm. The median nerve was visualized in its entirety from the axilla through the distal wrist crease. No focal enlargements or external compressive structures were seen. The ulnar nerve from the arm through the wrist showed normal size and appearance. No focal enlargements or external compressive structures were seen. The radial nerve from above the spiral groove through the division of the posterior interosseous nerve showed normal size and appearance. There was no subluxation of the ulnar [...] seen within the pisio-hamate joint/guyons canal. No tendinopathy or compression of the median nerve by the palmaris longus tendon at the wrist. No abnormal muscle movements were seen. No abnormal intramuscular blood flow was seen on power Doppler. INTERPRETATION: No abnormalities were seen on ultrasound of the imaged right arm. No compression ofthe posterior interosseous nerve identified. [facility] files lab billing Med Records Images in the report are not intended for interpretation Nerve size normal reference values: Muscle Nerve. 2008;40(6):960-6 and 2007;375):531-95 documented in this encounter Plan of Treatment Not on file documented as of this encounter Visit Diagnoses Diagnosis Right elbow pain- Primary Pain in joint, upper arm documented in this encounter Care Teams Pinking Sewing Machine Operator Relationship Specialty Start Date End Date Axel Urbina MD [address] [address] PCP - General Internal Medicine 12/03/22 Axel Urbina MD [address] [address] Internal Medicine 12/03/22 Rodri Dunlap MD [address] [place] [address] Referring Physician Orthopedic Surgery 12/03/22 documented as of this encounter
--- OUTSIDE RECORDS SUMMARY | 2024-07-18 18:00 | XMS_ITS | Encounter Summary ---
Author Organization [facility] Address [address] [place] [address] Phone Care Team Providers Care Nutrition Club Ambassador Name Role Phone Axel Urbina MD Primary Care Provider [phone] Reason for Visit * Reason Comments Hearing Loss * Consultation (Routine) - Closed Specialty Diagnoses / Procedures Referred By Satya verdugo Referred To Contact Otolaryngology Diagnoses Hearing loss, unspecified hearing loss type, unspecified laterality Axel Urbina MD [address] [facility] [address] [place] [address] Phone: tel: fax: [facility] (All Locations) Referral ID Status Reason Start Date Expiration Date V isits Requested Visits Authorized [id number] Closed Specialty Services Required 06/21/2020 07/21/2021 3 3 Encounter Details Date Type Department Care Team (Late st Contact Info) Description 06/26/2020 2:00 PM WEAVER TIRE CORD Office Visit [facility]) - [facility] ENT [address] [facility] [address] [place] [address] [place] [address] [facility] [address] [place] [address] Hearing loss, unspecified hearing loss type, unspecified laterality Social History Tobacco Use Types Packs/Day Years Used Date Smoking Tobacco: Former Smokeless Tobacco: Never Alcohol Use Standard Drinks/Week Comments Yes 0 (1 standard drink = 0.6 oz pur e alcohol) Comments Unknown Sex and Gender Information Value Date Recorded Sex Assigned at Not on file Legal Sex Female 10:24 AM WEAVER TIRE CORD Gender Identity Female 12/06/2022 6:59 PM CDT Sexual Orientation Straight 12/06/2022 6: 59 PM CDT documented as of this encounter Last Filed Vital Signs Vital Sign Reading Time Taken Comments Blood Pressure - - Pulse - - Temperature 37 ??C (98.6 ??F) 06/26/2020 2:22 PM WEAVER TIRE CORD Respiratory Rate - - Oxygen Saturation - - Inhaled Oxygen Concentration - - Weight - - Height - - Body Mass Index - - documented in this encounter Progress Notes * Frank Estrada MD - 06/26/2020 2:00 PM CST Subjective/Objective Patient ID: Yaritza Best is a 40 y.o. female. Chief Complaint Hearing Loss HPI Mrs. Best comes to the clinic today with a problem of hearing loss. She notes she has had problems for the last 4 years and it is gradually getting worse. She does have problems with turning up the television as well as difficulty with some conversations. It was noted her father has a hearing loss as well as a brother and sister. Review of Systems Constitutional: Negative for appetite change, chills, fatigue, fever and unexpected weight change. HENT: Negative for congestion, dental problem, ear discharge, ear pain, facial swelling, hearing loss, postnasal drip, rhinorrhea, sinus pressure, sneezing, sore throat, tinnitus, trouble swallowing and voice change. Eyes: Negative for discharge, redness, itching and visual disturbance. Respiratory: Negative for cough, shortness of breath and wheezing. Cardiovascular: Negative for chest pain and palpitations. Gastrointestinal: Negative for abdominal distention, abdominal pain, constipation, diarrhea, nauseaand vomiting. Endocrine: Negative for cold intolerance, heat intolerance, polydipsia, polyphagia and polyuria. Musculoskeletal: Negative for arthralgias, gait problem and myalgias. Skin: Negative for rash. Allergic/Immunologic: Negative for environmental allergies and food allergies. Neurological: Negative for dizziness, light-headedness and headaches. Psychiatric/Behavioral: Negative for agitation, confusion, decreased concentration and sleep disturbance. The patient is not nervous/anxious. Physical Exam Constitutional: She appears well-developed. HENT: Clinical examination shows normal-appearing ears. There is no sign of a middle ear effusion or an ear infection. Nasal examination shows a septal deviation no masses or lesions are noted no purulent drainage is noted The oral cavity shows no masses or lesions there is no sign of inflammation or infection. Indirect mirror laryngoscopy was not possible because of gagging. The cervical examination showed no masses or lesions there was no tenderness. Neck: Trachea normal and normal range of motion. Neck supple. Normal carotid pulses and no JVD present. Carotid bruit is not present. Cardiovascular: Normal rate and regular rhythm. Pulmonary/Chest: Effort normal and breath sounds normal. Abdominal: Soft. Normal appearance. Musculoskeletal: Normal range of motion. Neurological: She is alert. She has normal reflexes. Skin: Skin is warm and dry. Psychiatric: Her speech is normal and behavior is normal. Thought content normal. Assessment/Plan Diagnoses and all orders for this visit: Hearing loss, unspecified hearing loss type, unspecified laterality (H91.90) - Ambulatory referral to ENT Mrs. Best be scheduled for an audiogram. ER TIRE CORD documented in this encounter Plan of Treatment Not on file documented as of this encounter Visit Diagnoses Diagnosis Hearing loss, unspecified hearing loss type, unspecified laterality documented in this encounter Orders Outpatient Referral Count Last Ordered Date Fir st Ordered Date AMB REFERRAL TO ENT 1 06/26/2020 documented in this encounter Care Teams Nutrition Club Ambassador Relationship Specialty Start Date End Date Axel Urbina MD [address] [address] [place] [address] PCP - General Internal Medicine 06/21/20 12/02/22 documented as of this encounter
== END 2024-07-12 07:43 | disposition home or self-care (01) ==
PROVIDERS: PCP Nurse Practitioner; Visit Provider Obstetrics & Gynecology Gynecology
DX: Z12.31 Encounter for screening mammogram for malignant neoplasm of breast (principal)
CPT/HCPCS: 77063; 77067

== ENCOUNTER 2024-07-21 01:49 | Day surgery (SDC) | payer BC, SELFPAY ==
[2024-07-07 10:45] VITALS: BMI 24.2
--- NOTE | 2024-07-21 08:15 | P.PNAN_ITS ---
Anes - Initial Pre Proc Eval Procedure: Operation Date: 07/21/24 09:00 Proposed Procedures p Screening Colonoscopy - Clifford Nino MD Date/Time: 07/21/24 08:15 Surgeon: Clifford Nino MD Pre Op Diagnosis: screening colon Patient Data Age: 44 Gender: F Height: 1.68 m Weight: 68.1 kg Allergies Allergy/AdvReac Type Severity Reaction Status Date / Time No Known Allergies Allergy Verified 07/21/24 08:09 Home Medications ?Medication ?Instructions ?Recorded ?Confirmed ?Type multivitamin 1 tablet PO DAILY 11/18/22 07/21/24 History vitamin B complex 1 cap PO DAILY 11/18/22 07/12/24 History cetirizine 10 mg tablet (24Hour 10 mg PO DAILY 07/07/24 07/21/24 History Allergy) cyclobenzaprine 10 mg tablet 10 mg PO TID PRN muscle spasm #20 07/12/24 07/21/24 Rx tabs fluticasone propionate 50 1 spray intranasal DAILY 07/12/24 07/21/24 History mcg/actuation nasal spray,suspension (Flonase Allergy Relief) gabapentin 100 mg capsule 100 mg PO QHS 07/12/24 07/21/24 History melatonin 10 mg PO HS 07/12/24 07/21/24 History methylprednisolone 4 mg tablets in See Rx Instructions PO PER PKG DIR 07/12/24 07/21/24 Rx a dose pack (Medrol (Gareth)) #21 ea multivitamin with iron (Hair 1 tablet PO DAILY 07/12/24 07/21/24 History Vitamins tablet) Patient hx anesthesia problems: none Family hx anesthesia problems: none Results Review: All pre-operative results and documents have been reviewed as part of the pre- operative evaluation. [facility] Past Medical History Medical History Hereditary hemochromatosis Arthritis Postural orthostatic tachycardia syndrome Surgical History Surgical History History of abdominoplasty History of carpal tunnel surgery Family History Family History Mother Hypertension Bone cancer Lung cancer Diabetes mellitus Cancer Thyroid disorder Other Cancer Depression Grandparent Cancer Daughter Depression Sibling Depression Asthma Diabetes mellitus Sibling Depression Social History Social History Social History: Caffeine-coffee Years smoked: 6 Smoking status: Former smoker Tobacco type: cigarettes Smoking end date: 05/21/21 Alcohol intake: current Drinks per week: 5 Substance use: never Substance use type: does not use Do You Feel Safe in your Home?: Yes Lack of Transportation: No Lack of Food: Never True Current Housing: I Have Housing Concerned About Future Housing: No Difficulty Paying Gas/Electric Bills: No Difficulty Paying for Meds: No Currently Unemployed: No Education: Trade/Vocational Certificate Difficulty w/ Childcare or Family Care: No Living arrangements: with family 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 Informed Consent: The patient's anesthetic plan and its attendant risks and benefits were discussed with the patient/family/POA. Questions were solicited and answers provided to the satisfaction of the patient/family/POA.
[2024-07-21] MEDS: LACTATED RINGERS 1,000 ML 150 ML IV CONT (08:18)
[2024-07-21 08:19] VITALS: BP 109/69; PULSE 92; RESP 16; TEMP 36.1; O2SAT 100
[2024-07-21 08:22] LABS: BEDSIDEPREGUCG Negative (Negative)
--- NOTE | 2024-07-21 08:38 | P.HP_ITS ---
History of Present Illness History of Present Illness Consent: Risks, benefits, and alternatives have been discussed and questions answered. Patient agrees to proceed with procedure. Chief complaint: screening colon Narrative: Yaritza Null is a 44 year old female here for first screening colonoscopy Review of Systems Review of Systems: All systems reviewed & are unremarkable except as noted in HPI and below PMFSH Past Medical History Medical History Hereditary hemochromatosis Arthritis Postural orthostatic tachycardia syndrome Surgical History Surgical History History of abdominoplasty History of carpal tunnel surgery Family History Family History Mother Hypertension Bone cancer Lung cancer Diabetes mellitus Cancer Thyroid disorder Other Cancer Depression Grandparent Cancer Daughter Depression Sibling Depression Asthma Diabetes mellitus Sibling Depression Social History Social History Social History: Caffeine-coffee Years smoked: 6 Smoking status: Former smoker Tobacco type: cigarettes Smoking end date: 05/21/21 Alcohol intake: current Drinks per week: 5 Substance use: never Substance use type: does not use Do You Feel Safe in your Home?: Yes Lack of Transportation: No Lack of Food: Never True Current Housing: I Have Housing Concerned About Future Housing: No Difficulty Paying Gas/Electric Bills: No Difficulty Paying for Meds: No Currently Unemployed: No Education: Trade/Vocational Certificate Difficulty w/ Childcare or Family Care: No Living arrangements: with family 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 Spiritual care concerns: No Meds Home Medications and Allergies Home Medications ?Medication ?Instructions ?Recorded ?Confirmed ?Type multivitamin 1 tablet PO DAILY 11/18/22 07/21/24 History vitamin B complex 1 cap PO DAILY 11/18/22 07/12/24 History cetirizine 10 mg tablet (24Hour 10 mg PO DAILY 07/07/24 07/21/24 History Allergy) cyclobenzaprine 10 mg tablet 10 mg PO TID PRN muscle spasm #20 07/12/24 07/21/24 Rx tabs fluticasone propionate 50 1 spray intranasal DAILY 07/12/24 07/21/24 History mcg/actuation nasal spray,suspension (Flonase Allergy Relief) gabapentin 100 mg capsule 100 mg PO QHS 07/12/24 07/21/24 History melatonin 10 mg PO HS 07/12/24 07/21/24 History methylprednisolone 4 mg tablets in See Rx Instructions PO PER PKG DIR 07/12/24 07/21/24 Rx a dose pack (Medrol (Gareth)) #21 ea multivitamin with iron (Hair 1 tablet PO DAILY 07/12/24 07/21/24 History Vitamins tablet) Allergies Allergy/AdvReac Type Severity Reaction Status Date / Time No Known Allergies Allergy Verified 07/21/24 08:09 Vital Signs Vital Signs - 24 hr 07/21/24 08:19 Temperature 96.9 F L Pulse Rate 92 Respiratory Rate 16 Blood Pressure 109/69 Pulse Oximetry 100 Oxygen Delivery Room Air Exam Const: General: comfortable and no acute distress HENMT: Face/Nose/Sinus: Normal nares present Eyes: General: appearance normal, both eyes and all related structures Neck: Neck: no JVD Resp: Auscultation: clear to auscultation bilaterally Cardio: Rate: regular rate Rhythm: regular rhythm GI: Inspection: non-distended GI Palp: Yes Soft to palpation Skin: General skin exam: normal color Neuro: General: gait normal Speech: normal speech Extrem: General: normal to inspection Psych: Mental Status: mental status grossly normal Assessment and Plan Assessment and plan (1) Screening for colon cancer: Code(s): Z12.11 - Encounter for screening for malignant neoplasm of colon Status: Acute Assessment and Plan: colonoscopy
[2024-07-21 08:52] VITALS: BP 102/68; PULSE 89; RESP 16; O2SAT 98
[2024-07-21 09:02] VITALS: BP 97/67; PULSE 76; RESP 18; O2SAT 98
[2024-07-21 09:12] VITALS: BP 96/68; PULSE 79; RESP 18; O2SAT 99
== END 2024-07-21 09:16 | disposition home or self-care (01) ==
PROVIDERS: Anesthesiology; PCP Internal Medicine; Referring Provider Nurse Practitioner; Visit Provider Internal Medicine Gastroenterology
PROC: 0DJD8ZZ Inspection of Lower Intestinal Tract, Via Natural or Artificial Opening Endoscopic (ICD-10-PCS; CPT 45378; principal; 2024-07-21 09:00)
DX: Z12.11 Encounter for screening for malignant neoplasm of colon (principal); Z87.891 Personal history of nicotine dependence
CPT/HCPCS: 45378; J2003; J2704; J7120

== ENCOUNTER 2024-08-12 07:28 | Outpatient (CLI) | payer BC, SELFPAY ==
--- NOTE | ~2024-08-12 | DEXA_ITS ---
Bone Density Report Name: PERRY TAY Age: 44 Sex: Female Ethnicity: White Date of : 1980 Indication: postmenopausal; parental hip fracture; height loss; Referring Provider: KADEN TIJERINA Study: Bone densitometry was performed. Exam Date: August 12, 2024 Accession number: [id number] Bone Density: Region BMD T-score Z-score Classification AP Spine(L1-L4) 1.347 2.7 3.2 Normal Femoral Neck (Left) 0.941 0.8 1.3 Normal Total Hip (Left) 1.035 0.8 1.1 Normal Femoral Neck (Right) 0.946 0.9 1.3 Normal Total Hip (Right) 0.991 0.4 0.7 Normal Total Hip Mean 1.013 0.6 0.9 Normal World Health Organization criteria for BMD impression classify patients as: Normal (T-score at or above -1.0), Osteopenia (T-score between -1.0 and -2.5), or Osteoporosis (T-score at or below -2.5). 10-year Fracture Risk: FRAX not reported because: All T-scores for Spine Total, Hip Total, Femoral Neck at or above -1.0 Clinical Information Provided by Patient: Parent has had a hip fracture Patient maximum height was 67 Menopause Age: 43 Drinks caffeinated beverages Onset of menses at age 12 Number of children 2 Impression: The patient has normal bone mass. The patient has risk factors, including: parental hip fracture. Discussion: BONE DENSITY IS ABOVE THE MINIMUM DESIRABLE LEVEL AT ALL SKELETAL SITES TESTED. This patient?s bone mineral density is above the minimum desirable level (T-score -1.0 or better) at all sites measured. The patient should follow a healthful lifestyle (good nutrition with adequate calcium and vitamin D, and appropriate weight-bearing exercise). Follow-Up: Consider repeating this study in 5 years or sooner if there is some new clinical indication. Reported by: ROSA on 08/12/2024 8:09:00 AM. Reviewed, dictated and finalized at location AFrida LYNN
--- OUTSIDE RECORDS SUMMARY | 2024-08-12 07:34 | XMS_ITS | Clinical Summary ---
Author Organization [facility] Address [facility] [place] [address] Care Team Providers Care Water Project Engineer Name Role Phone Axel Urbina MD Primary Care Provider Axel Urbina MD Unavailable [phone] Rodri Dunlap MD Unavailable [phone] Allergies No known active allergies Medications estradiol-noret [...] on file Legal Sex Female 10:24 AM SOFTWARE SYSTEMS ANALYST Gender Identity Female 12/06/2022 6:59 PM CDT Sexual Orientation Straight 12/06/2022 6: 59 PM CDT Obstetrics History Last Filed Vital Signs Vital Sign Reading Time Taken Comments Blood Pressure 114/67 01/13/2023 6:10 PM CDT Pulse 77 01/13/2023 6:10 PM CDT Temperature 36.1 C (97 F) 01/13/2023 4:45 PM CDT Respiratory Rate 12 [...] patient's age to complete this topic Insurance [facility] Care Teams Water Project Engineer Relationship Specialty Start Date End Date Axel Urbina MD [address] [facility] [address] [place] [address] PCP - General Internal Medicine 12/03/22 Axel Urbina MD [address] [facility] [address] [place] [address] Internal Medicine 12/03/22 Rodri Dunlap MD [address] [place] [address] Referring Physician Orthopedic Surgery 12/03/22
--- OUTSIDE RECORDS SUMMARY | 2024-08-12 07:34 | XMS_ITS | Referral Summary ---
Author Organization [facility] Address [facility] [place] [address] Care Team Providers Care Mortgage Assistant Name Role Phone Axel Urbina MD Primary Care Provider Axel Urbina MD Unavailable [phone] Rodri Dunlap MD Unavailable [phone] Allergies No known active allergies Medications estradiol-noret [...] on file Legal Sex Female 10:24 AM WOOL SPOTTER Gender Identity Female 12/06/2022 6:59 PM CDT [...] Plan of Treatment Not on file Insurance [facility] Care Teams Mortgage Assistant Relationship Specialty Start Date End Date Axel Urbina MD [address] [facility] [address] [place] [address] PCP - General Internal Medicine 12/03/22 Axel Urbina MD [address] [facility] [address] [place] [address] Internal Medicine 12/03/22 Rodri Dunlap MD [address] [place] [address] Referring Physician Orthopedic Surgery 12/03/22
== END 2024-08-12 07:29 | disposition home or self-care (01) ==
LOC: ANHIMG 07:32
PROVIDERS: PCP Nurse Practitioner; Visit Provider Nurse Practitioner
DX: Z78.0 Asymptomatic menopausal state (principal); K90.0 Celiac disease
CPT/HCPCS: 77080

== ENCOUNTER 2024-09-28 06:43 | Outpatient (CLI) | payer BC, SELFPAY ==
--- NOTE | ~2024-09-28 | MR_ITS ---
EXAMINATION: MR lumbar spine wo/w con DATE: 09/28/2024 07:29 INDICATION: Lumbar Spondylosis TECHNIQUE: Magnetic resonance imaging (MRI) of the lumbar spine was performed without and with 14 mL ProHance intravenous contrast. Sequences included sagittal T2-weighted FSE, sagittal T2-weighted FS F SE, and sagittal and axial T1-weighted FSE. Postcontrast sequences included axial T2-weighted FSE, sa gittal T1-weighted FSE, and axial and sagittal T1-weighted FS FSE. COMPARISON: 02/12/2024 FINDINGS: 3 mm retrolisthesis L5 on S1. Vertebral body heights are normal. Small Schmorl's nodes along the supe rior endplates of L2 and L3. Bone marrow signal is normal. Mild to moderate disc height loss with abiel ular fissures at L2-L3, L3-L4 and L5-S1. The conus medullaris terminates at L1. There is normal signa l in the caudal spinal cord. Interval postoperative change of prior left L5-S1 hemilaminectomy with p artial resection of the inferior articular process of L4. There is a mild edema and enhancement along the margins of a small amount of fluid at the operative bed. The following disc levels are specifica lly discussed: T12-L1: The disc does not extend beyond the endplate margin. There is mild bilateral facet joint oste oarthritis. There is mild left neural foraminal stenosis. There is no central canal stenosis. L1-L2: The disc does not extend beyond the endplate margin. There is moderate bilateral facet joint o steoarthritis. There is no neural foraminal stenosis. There is no central canal stenosis. L2-L3: Disc is bulging with annular fissure. There is mild right and severe left facet joint osteoart hritis. There is mild bilateral neural foraminal stenosis. There is mild central canal stenosis. L3-L4: Disc is bulging with annular fissure. There is severe right and moderate left facet joint oste oarthritis. There is moderate right and mild left neural foraminal stenosis. There is mild central ca nal stenosis. L4-L5: Disc is mildly bulging. There is moderate to severe bilateral facet joint osteoarthritis. Ther e is moderate left and mild right neural foraminal stenosis. There is mild central canal stenosis. L5-S1: Disc is bulging with annular fissure. There appears be a defect along the periphery of the dis c at the left subarticular zone suggesting prior microdiscectomy. There is moderate right facet joint osteoarthritis. Posterior decompression with left hemilaminotomy and resection of the left inferior articular process of L5. There is enhancing soft tissue likely related to the recent surgery surround ing the traversing left S1 and S2 nerve roots at the left lateral recess. There is mild bilateral hang ral foraminal stenosis. There is mild central canal stenosis. IMPRESSION: 1. Postoperative change of recent interval L5-S1 left hemilaminectomy with resection of the inferior articular process of L5 with likely microdiscectomy at the subarticular zone of the L5-S1 disc. There is some enhancing soft tissue at this level surrounding the traversing left S1 and S2 nerve roots at the left lateral recess. 2. Otherwise stable appearance of mild to moderate lumbar spondylosis. Reviewed, dictated and finalized at location B. IMPRESSION: 1. Postoperative change of recent interval L5-S1 left hemilaminectomy with rese ction of the inferior articular process of L5 with likely microdiscectomy at th e subarticular zone of the L5-S1 disc. There is some enhancing soft tissue at t his level surrounding the traversing left S1 and S2 nerve roots at the left lat eral recess. 2. Otherwise stable appearance of mild to moderate lumbar spondylosis.
--- OUTSIDE RECORDS SUMMARY | 2024-09-28 06:47 | XMS_ITS | Clinical Summary ---
Author Organization [facility] Address [facility] [place] [address] Care Team Providers Care Bridge Opener Name Role Phone Axel Urbina MD Primary Care Provider Axel Urbina MD Unavailable [phone] Rodri Dunlap MD Unavailable [phone] Allergies No known active allergies Medications estradiol-noret [...] Medical History Date Comments Anxiety Autoimmune disorder POTS (postural orthostatic tachycardia syndrome) Celiac disease [...] on file Legal Sex Female 10:24 AM FABRICATION ENGINEER Gender Identity Female 12/06/2022 6:59 PM [...] patient's age to complete this topic Insurance [facility] Care Teams Bridge Opener Relationship Specialty Start Date End Date Axel Urbina MD [address] [facility] [address] [place] [address] PCP - General Internal Medicine 12/03/22 Axel Urbina MD [address] [facility] [address] [place] [address] Internal Medicine 12/03/22 Rodri Dunlap MD [address] [place] [address] Referring Physician Orthopedic Surgery 12/03/22
--- OUTSIDE RECORDS SUMMARY | 2024-09-28 06:47 | XMS_ITS | Referral Summary ---
Author Organization [facility] Address [facility] [place] [address] Care Team Providers Care Stable Attendant Name Role Phone Axel Urbina MD Primary Care Provider [phone] Axel Urbina MD Unavailable [phone] Rodri Dunlap MD Unavailable [phone] Allergies No known active allergies Medications estradiol-noret [...] on file Legal Sex Female 10:24 AM ELECTRICAL ELECTRONICS ENGINEERS Gender Identity Female 12/06/2022 6:59 PM CDT [...] Plan of Treatment Not on file Insurance [facility] Care Teams Stable Attendant Relationship Specialty Start Date End Date Axel Urbina MD [address] [facility] [address] [place] [address] PCP - General Internal Medicine 12/03/22 Axel Urbina MD [address] [facility] [address] [place] [address] Internal Medicine 12/03/22 Rodri Dunlap MD [address] [place] [address] Referring Physician Orthopedic Surgery 12/03/22
== END 2024-09-28 06:44 | disposition home or self-care (01) ==
LOC: ANHIMG 06:45
PROVIDERS: PCP Nurse Practitioner; Visit Provider Neurological Surgery
DX: M47.816 Spondylosis without myelopathy or radiculopathy, lumbar region (principal)
CPT/HCPCS: 72158; A9579

== ENCOUNTER 2025-05-13 15:07 | Emergency (ER) | payer BC, SELFPAY ==
[2025-05-13 15:15] VITALS: BP 123/76; PULSE 85; RESP 16; TEMP 36.5; O2SAT 98
--- NOTE | 2025-05-13 15:32 | ED.HA ---
HPI - Headache General Chief Complaint: Headache Stated Complaint: mild headache, nausea Patient presents to the [facility] with complaints of frontal headache, upper abdominal pain, and significant nausea began 4 days ago. Patient noted symptoms began after coming home from a trip to [place]. Patient does note she has a allergy and while she was in [place] did take several of her gluten medications but still had an odd sensation like she was having trouble with gluten but denies any vomiting like she would normally have. Noted she has been taking Tylenol and ibuprofen over the last few days and this does give some relief of symptoms. Patient noted her daughter does suffer from migraines and did take Zofran and sumatriptan yesterday which did get complete relief headache but only minimal relief of nausea. Patient denies significant abdominal pain, vision changes, dizziness, blood in stool, sensitivity to light, sensitivity to sound. Related Data Home Medications ?Medication ?Instructions ?Recorded ?Confirmed ?Last Taken ?Type multivitamin 1 tablet PO DAILY 11/18/22 03/20/25 07/16/24 History vitamin B complex 1 cap PO DAILY 11/18/22 03/20/25 Unknown History cetirizine 10 mg tablet (24Hour 10 mg PO DAILY 07/07/24 03/20/25 07/19/24 History Allergy) fluticasone propionate 50 1 spray intranasal DAILY 07/12/24 03/20/25 07/19/24 History mcg/actuation nasal spray,suspension (Flonase Allergy Relief) multivitamin with iron (Hair 1 tablet PO DAILY 07/12/24 03/20/25 07/16/24 History Vitamins tablet) Allergies Allergy/AdvReac Type Severity Reaction Status Date / Time No Known Allergies Allergy Verified 03/20/25 14:01 Review of Systems Constitutional: Constitutional: Reports as per HPI, Denies chills, Denies fatigue, Denies fever(s) and Denies weakness Eyes: Eyes: Reports no additional eye complaints ENT: Reports as per HPI, Denies vertigo, Denies dizziness, Denies nasal congestion and Denies sore throat Cardiovascular: Cardiovascular: Reports no additional cardiovascular complaints Respiratory: Respiratory: Reports no additional respiratory complaints Gastrointestinal: Gastrointestinal: Reports as per HPI, Reports abdominal pain, Reports bloating, Denies constipation, Denies heartburn, Reports diarrhea, Reports nausea and Denies vomiting Genitourinary: Genitourinary: Reports no additional female genitourinary complaints Musculoskeletal: Musculoskeletal: Reports as per HPI, Denies back pain, Denies myalgias, Denies arthralgias, Denies joint swelling and Denies muscle cramps Integumentary/Breasts: Skin/Breast: Reports as per HPI, Denies pruritus, Denies erythema and Denies rash Neurologic: Reports as per HPI, Denies vertigo, Denies dizziness, Reports headache(s), Denies numbness and Denies weakness Psychiatric: Psychiatric: Reports no additional psychiatric complaints Endocrine: Endocrine: Reports no additional endocrine complaints Hematologic/Lymphatic: Hematologic/Lymphatic: Reports no additional hematologic/lymphatic complaints Allergic/Immunologic: Allergic/Immunologic: Reports no additional allergic/immunologic complaints [facility] Past Medical History Medical History (Updated 05/13/25 @ 16:00 by Jo Guaman APRN, DATA GOVERNANCE ANALYST-C) Hereditary hemochromatosis Arthritis Postural orthostatic tachycardia syndrome Surgical History Surgical History (Updated 03/20/25 @ 14:04 by Jayden Mckinley MA) History of back surgery History of abdominoplasty History of carpal tunnel surgery Family History Family History Mother Hypertension Bone cancer Lung cancer Diabetes mellitus Cancer Thyroid disorder Other Cancer Depression Grandparent Cancer Daughter Depression Sibling Depression Asthma Diabetes mellitus Sibling Depression Social History Social History Social History: Caffeine-coffee Years smoked: 6 Tobacco type: cigarettes Smoking end date: 05/21/21 Alcohol intake: current Drinks per week: 5 Substance use: never Substance use type: does not use Do You Feel Safe in your Home?: Yes Lack of Transportation: No Lack of Food: Never True Current Housing: I Have Housing Concerned About Future Housing: No Difficulty Paying Gas/Electric Bills: No Difficulty Paying for Meds: No Currently Unemployed: No Education: Trade/Vocational Certificate Difficulty w/ Childcare or Family Care: No Living arrangements: with family 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 Spiritual care concerns: No Exam Const: General: healthy appearing and no acute distress Nutritional Appearance: well nourished Orientation/consciousness: patient oriented x3 Limitations: no limitations HENMT: Head: normal to inspection Ears: external ears normal and TM's normal bilaterally Mouth: Yes Normal oral and palatal mucosa present, Yes lip normal and Yes moist mucous membranes abnormal Throat: posterior oropharynx normal Eyes: Conjunctivae: conjunctivae normal Pupils: Equal, round and reactive pupils present EOM: EOMs intact bilaterally Direct Ophthalmoscopy: no photophobia Neck: Neck: normal visual inspection and no lymphadenopathy Resp: Effort & Inspection: normal respiratory effort Auscultation: clear to auscultation bilaterally Cardio: Rate: regular rate Rhythm: regular rhythm GI: Inspection: non-distended GI Palp: Yes Soft to palpation, No Tenderness to palpation present (GI), No Guarding due to palpation present (GI), No Rigid due to palpation, No Hernia present, No Palpable mass present and No Rebound tenderness present Auscultation: normal bowel sounds Skin: General skin exam: normal color Rashes: no rashes Wounds: no wounds Neuro: General: patient oriented x3, moves all extremities, no meningeal signs and CN's II-XI intact bilaterally Cranial nerves: Yes Nystagmus not present Speech: normal speech Gait exam (Neuro): Normal gait present Psych: Mental Status: mental status grossly normal Affect: normal affect Attitude: cooperative Course Course Level of Care: Express Care Visit Vital Signs Vital signs: Vital Signs Temperature 97.7 F 05/13/25 15:15 Pulse Rate 85 05/13/25 15:15 Respiratory Rate 16 05/13/25 15:15 Blood Pressure 123/76 05/13/25 15:15 Pulse Oximetry 98 05/13/25 15:15 Temperature 97.7 F 05/13/25 15:15 Pulse Rate 85 05/13/25 15:15 Respiratory Rate 16 05/13/25 15:15 Blood Pressure 123/76 05/13/25 15:15 Pulse Oximetry 98 05/13/25 15:15 MDM - Headache MDM Narrative Medical decision making narrative: Spoke with patient about overall symptoms noted this is consistent with a migraine-like headache given the timeline in the stomach issues and increased nausea can be separate due to your recent travel and history with gluten. Will attempt to migraine cocktail at this time. he educated patient we can do a a steroid at home to reduce inflammation in the stomach as well as had the help that comes down. If any symptoms worsen patient to go to the emergency room. The patient was evaluated by myself in the express care. History is obtained from patient who is an independent historian and physical exam was performed. Available medical records were reviewed at this time. Exam findings show no acute concerns or changes; patient is non-toxic appearing and is in no distress. Patient is appropriate for outpatient treatment and follow-up. I have evaluated and discussed social determinants of health with the patient that could potentially impact subsequent diagnosis and treatment plans. Differential diagnosis and treatment plan were discussed with the patient. Patient agrees with discussion and after shared medical decision making agrees with plan of care. All questions were answered to the patient's satisfaction. Differential Diagnosis Differential diagnosis: Likely migraine, tension headache, headache, meningitis, sinusitis, postconcussion syndrome and other (altitude sickness ) Medical Records Attestation: I reviewed the patient's medical records. Discharge Plan Discharge Clinical Impression: Headache, Nausea, Acute upper abdominal pain Patient Disposition: Home Condition: Stable Instructions: Antibiotic Form, Mountain Sickness (ED), Migraine Headache (ED), Acute Headache (ED) Patient Language: Macedonian Prescriptions: New prochlorperazine maleate [Compazine] 5 mg tablet 5 mg PO Q8H PRN (Reason: nausea and vomiting) Qty: 20 0RF prednisone 50 mg tablet 50 mg PO DAILY Qty: 7 0RF No Action multivitamin Tablet 1 tablet PO DAILY vitamin B complex Capsule 1 cap PO DAILY cyclobenzaprine 10 mg tablet 10 mg PO TID PRN (Reason: muscle spasm) Qty: 20 0RF fluticasone propionate [Flonase Allergy Relief] 50 mcg/actuation spray,suspension 1 spray intranasal DAILY Rx Instructions: administer into each nostril multivitamin with iron [Hair Vitamins] Tablet 1 tablet PO DAILY cetirizine [24Hour Allergy] 10 mg tablet 10 mg PO DAILY Follow-up/Referrals: Katie Paul APRN [Primary Care Provider, Internal Medicine] Time of Disposition: 16:02
[2025-05-13] MEDS: KETOROLAC (*BKC) 60 MG/2 ML VIAL IM (15:37)
[2025-05-13] MEDS: ONDANSETRON HCL ODT 4 MG TABLET PO (15:38)
== END 2025-05-13 16:10 | disposition home or self-care (01) ==
PROVIDERS: Emergency Provider Nurse Practitioner Family; PCP Nurse Practitioner
DX: R51.9 Headache, unspecified (principal); R11.0 Nausea; R10.10 Upper abdominal pain, unspecified; M19.90 Unspecified osteoarthritis, unspecified site; G90.A Postural orthostatic tachycardia syndrome [POTS]; Z87.891 Personal history of nicotine dependence
CPT/HCPCS: 96372; 99213; A9270; G0463; J1885

== ENCOUNTER 2025-06-06 15:00 | Outpatient (CLI) | payer BC, SELFPAY ==
--- NOTE | ~2025-06-06 | XR_ITS ---
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 Technique: 2 views obtained. Findings: The lungs are clear, no effusion. No pneumothorax. Heart is normal size. Mediastinal and hilar contours are within normal limits. Bony thorax no acute abnormality. Impression: No acute cardiopulmonary abnormality. Reviewed, dictated and finalized at location P. ACCOUNTANT Impression: No acute cardiopulmonary abnormality.
== END 2025-06-06 15:01 | disposition home or self-care (01) ==
PROVIDERS: PCP Nurse Practitioner; Visit Provider Nurse Practitioner
DX: R07.89 Other chest pain (principal)
CPT/HCPCS: 71046